=== PATIENT | male | born 1990 | race Caucasian/White ===

== ENCOUNTER 2021-01-02 15:33 | Inpatient (IN) | payer MEDICAID, SELFPAY ==
[2021-01-02 15:35] VITALS: BP 131/82; PULSE 110; RESP 20; TEMP 36.4; O2SAT 97; BMI 24.2
--- NOTE | 2021-01-02 15:58 | CT_ITS ---
STUDY: CTA CHEST REASON FOR EXAM: Male, 30 years old. PT C/O FEVER, SORE THROAT, COUGH X 2 WEEKS ALSO STATES HE WANTS DETOX FROM HEROIN LAST USE 2 DAYS AGO RADIATION DOSAGE (If Supplied By Facility): CTDIvol = ( 5.19 ) mGy, DLP = ( 193.15 ) mGycm TECHNIQUE: The examination was performed with the intravenous administration of IV 100mL Isovue-370. Post-processing of the angiographic images was performed, with multiplanar reformation and 3D reconstruction. Individualized dose optimization techniques were used for this CT. COMPARISON: None. FINDINGS: Normal enhancement of the main pulmonary artery and right and left pulmonary arteries. Normal enhancement of the bilateral peripheral pulmonary arteries. There is no demonstrated pulmonary embolism. Normal thoracic aorta and visualized great vessels. There is no demonstrated aortic dissection. Normal heart and pericardium. Normal mediastinum. There are calcified bilateral hilar lymph nodes. Normal visualized trachea and bronchi. The lungs are well expanded. Normal variant azygous fissure. There are multiple pulmonary nodules throughout multiple pulmonary lobes measuring up to 1.5 x 1.8 cm. Some of the nodules are subpleural/peripheral while others are confined to the pulmonary parenchyma. At least 3 nodules demonstrate central cavitation (image 198 series 2, image 129 series 2). Calcified granuloma left upper lobe. Normal pleura. Normal chest wall structures. Normal osseous structures. Spleen is moderately enlarged. Small hiatal hernia. CT/CTA Chest W/WO Contrast IMPRESSION: 1. No central or segmental pulmonary embolism. 2. Multiple pulmonary nodules some of which demonstrate cavitation. Findings are suspicious for septic emboli based on history. Neoplasm and pulmonary infarction are also the differential diagnosis, albeit less likely. 3. Splenomegaly. Electronically Signed: Nate Knox MD (Brooks) at 17:19 EST , Service support ,
--- NOTE | 2021-01-02 15:58 | EX.ED.DYSGE1 ---
HPI History of Present Illness Chief Complaint: Fever Informant: patient Onset/Context/Timing Onset: Weeks (1-2) Context: Gradual Onset Timing: Continuous Quality: Weakness, burning Location: Generalized Worsened by: Nothing Relieved by: Nothing Narrative Narrative: Patient presents with a fever, sore throat, and weakness that has been getting worse over the past 1 to 2 weeks. Patient states he feels weak all over. Patient also admits to a burning sensation all over. Patient states nothing makes it better and nothing makes it worse. Patient also admits to rhinorrhea and bilateral ear pain. Patient also admits to some pain in his chest and shortness of breath. Patient admits to some nausea and vomiting. Patient also admits to some dysuria. Patient also is requesting detox from heroin. Patient states she uses approximately $40 per day. Patient states his last use was 2 days ago. Patient states he has been using for the past couple months. Patient denies any prior history of detox. PFSH PFS Medical History Hepatitis C IV drug user Polysubstance abuse Testicular cancer Tobacco use Allergy/AdvReac Type Severity Reaction Status Date / Time latex AdvReac Itching Verified 01/02/21 15:38 Family History (Updated 01/02/21 @ 17:[address] Deena Graham MD) Mother Heart disease Father Heart disease Surgical History (Updated 01/02/21 @ 17:[address] Deena Graham MD) History of surgery on arm Hx of unilateral orchiectomy Social History (Updated 01/02/21 @ 17:[address] Deena Graham MD) household members: significant other Smoking Status: Current every day smoker tobacco type: cigarettes Smoking packs per day: 1 Smoking cigarettes per day: 20.0 alcohol intake: current alcohol intake frequency: holidays/special occasions only substance use type: crack/cocaine, heroin, opiates, IV drugs and other details: Currently 1/2 gm daily heroin and fentanyl. ROS ROS ED Constitutional Constitutional ED: Reports fever(s); Denies chills Eyes Eyes: Denies blurry vision or change in vision ENT ENT ED: Reports ear pain, rhinorrhea and sore throat Cardiovascular Cardiovascular: Reports chest pain; Denies palpitations Respiratory/Chest Respiratory/Chest: Reports cough and dyspnea Gastrointestinal Gastrointestinal: Reports nausea and vomiting Genitourinary Genitourinary ED: Reports dysuria; Denies hematuria Musculoskeletal Musculoskeletal: Reports back pain and neck pain Integumentary Denies abscess or rash Neurologic Neurologic: Reports weakness; Denies headache(s) Allergic/Immunologic Allergic/Immunologic ED: Denies mouth swelling or urticaria EXAM Physical Exam Const Vital Signs: 01/02/21 15:35 01/02/21 16:40 01/02/21 16:46 Temperature 97.6 F L 101.2 F H Temperature Source Temporal Oral Pulse Rate 110 H 117 H Respiratory Rate 20 H 18 Respiratory Effort Normal Blood Pressure 131/82 H 124/79 H Blood Pressure Mean 98 94 Pulse Ox 97 100 Oxygen Delivery Method Room Air Room Air Positive well nourished and well developed General Appearance ED: well developed HEENT Reports moist mucous membranes Neck supple and no JVD Resp normal respiratory effort and clear to auscultation bilaterally Cardio regular rhythm and no murmurs Rate: tachycardic GI normal to inspection, nondistended, normoactive bowel sounds and non-tender Palpation: soft Extremity normal to inspection General Extremety ED: Negative for edema or tenderness General Extremity: Negative for edema Neuro oriented x3, CN's II-XII intact bilaterally and no sensory deficits noted Sensorium / Orientation: alert Motor Exam: strength 5/5 throughout Psych mental status grossly normal Skin no rashes or lesions noted MDM MDM MDM Narrative Medical decision making narrative: Patient was given IV fluids. CBC shows a mild anemia with a hemoglobin of 10.5 and hematocrit 29.8. White blood cell count was normal. Platelets were slightly low at 137. Comprehensive metabolic profile showed a sodium of 124, potassium of 3.1, and chloride of 89. Anion gap was normal. The remainder was essentially within normal limits. COVID-19 rapid antigen was obtained and was negative. Rapid strep was positive for group A strep. Patient was given a dose of potassium and a dose of Pen-Vee K. Serum alcohol level was negative. Because of the patient's dyspnea, CTA of the chest was obtained. There is no evidence of pulmonary embolism. There are multiple pulmonary nodules some of which demonstrate cavitation. Findings are suspicious for septic emboli. This was interpreted by the radiologist and reviewed by myself. Because of this, blood cultures were obtained. Patient was started on Zosyn and vancomycin. X-rays of the lumbar spine were obtained. There are 3 views. On my interpretation, there is no acute fracture or spondylolisthesis. Radiologist also interpreted the x-rays and agrees. Case was discussed with the hospitalist. She will admit the patient to her service. Patient and family understood and were agreeable with the plan. All questions were answered. Lab Data Attestation: I reviewed the patient's lab results. Labs: Laboratory Results - last 24 hr 01/02/21 01/02/21 01/02/21 16:10 16:10 16:10 WBC 10.9 RBC 3.67 L Hgb 10.5 L Hct 29.8 L MCV 81.2 MCH 28.6 MCHC 35.2 RDW Std Deviation 39.8 RDW Coeff of [place] 13.3 Plt Count 137 L MPV 10.1 Immature Gran % (Auto) 1.300 H Neut % (Auto) 85.5 H Lymph % (Auto) 7.0 L [place] % (Auto) 5.9 Eos % (Auto) 0.1 Baso % (Auto) 0.2 Absolute Neuts (auto) 9.3 H Absolute Lymphs (auto) 0.76 L Nucleated RBC % 0 Sodium 124 L Potassium 3.1 L Chloride 89 L Carbon Dioxide 24.0 Anion Gap 11 BUN 23 H Creatinine 0.94 Estim Creat Clear Calc 104.64 Est GFR (MDRD) Af Amer 122 Est GFR (MDRD) Non-Af 101 BUN/Creatinine Ratio 24.5 H Glucose 111 H Calcium 7.9 L Magnesium Total Bilirubin 0.90 AST 31 ALT 32 Alkaline Phosphatase 103 Total Protein 6.7 Albumin 2.0 L Globulin 4.7 H Albumin/Globulin Ratio 0.4 L Ethyl Alcohol < 3.0 HIV 1&2 Antibody 01/02/21 01/02/21 16:10 16:10 WBC RBC Hgb Hct MCV MCH MCHC RDW Std Deviation RDW Coeff of [place] Plt Count MPV Immature Gran % (Auto) Neut % (Auto) Lymph % (Auto) [place] % (Auto) Eos % (Auto) Baso % (Auto) Absolute Neuts (auto) Absolute Lymphs (auto) Nucleated RBC % Sodium Potassium Chloride Carbon Dioxide Anion Gap BUN Creatinine Estim Creat Clear Calc Est GFR (MDRD) Af Amer Est GFR (MDRD) Non-Af BUN/Creatinine Ratio Glucose Calcium Magnesium 2.2 Total Bilirubin AST ALT Alkaline Phosphatase Total Protein Albumin Globulin Albumin/Globulin Ratio Ethyl Alcohol HIV 1&2 Antibody Non-Reactive Radiography Diagnostic Testing: Clinical Impression(s) from Imaging Studies Chest CTA 11/23/21 15:58 IMPRESSION: 1. No central or segmental pulmonary embolism. 2. Multiple pulmonary nodules some of which demonstrate cavitation. Findings are suspicious for septic emboli based on history. Neoplasm and pulmonary infarction are also the differential diagnosis, albeit less likely. 3. Splenomegaly. Electronically Signed: Nate Knox MD (Brooks) at 17:19 EST , Service support , Lumbar Spine X-Ray 01/02/21 17:04 IMPRESSION: Normal x-ray examination of the lumbar spine. Electronically Signed: Nate Knox MD (Brooks) at 17:21 EST , Service support , Treatment and Re-Evaluation Vital Sign Attestation:: Vitals reviewed prior to admission. They are stable. Discharge Plan Dx/Rx/DC Orders Clinical Impression: Opiate withdrawal, SIRS (systemic inflammatory response syndrome) Disposition Disposition: Acute Care Hospital [facility] Discharge Date/Time: 01/02/21 18:56
[2021-01-02] MEDS: 0.9% Normal Saline 1,000 ML 1000 ML IV (16:10)
[2021-01-02 16:27] LABS: Absolute Lymphocyte Count 0.76 X10^3/uL (0.83-4.51); Absolute Neutrophil Count 9.3 X10^3/uL (2.0-7.7); Basophil# 0.02 X10^3/uL; Basophil% 0.2 % (0-1); Eosinophil# 0.01 X10^3/uL; Eosinophils% 0.1 % (0-5); Hematocrit 29.8 % (40-54); Hemoglobin 10.5 g/dL (13.0-16.5); Lymphocyte # 0.76 X10^3/ul (0.83-4.51); Mean Corp Hgb Conc 35.2 g/dL (32-36); Mean Corpuscular Hgb 28.6 pg (27.0-32.0); Mean Corpuscular Volume 81.2 fL (80-94); Mean Platelet Vol. 10.1 fl (6.2-12.0); Monocyte# 0.64 X10^3/uL; Monocyte% 5.9 % (0-10); NRBC Flagged by Analyzer 0 % (0-5); Neutrophil # 9.31 X10^3/uL (2.7-7.7); Neutrophil % 85.5 % (47-70); Platelet Count 137 K/mm3 (150-450); RBC Distribution Width CV 13.3 % (11.6-14.6); RBC Distribution Width SD 39.8 fl (35.1-43.9); Red Blood Count 3.67 M/mm3 (4.6-6.2); White Blood Count 10.9 K/mm3 (4.4-11.0)
[2021-01-02 16:46] VITALS: BP 124/79; PULSE 117; RESP 18; TEMP 38.4; O2SAT 100
[2021-01-02 16:48] LABS: ALB/GLOB Ratio 0.4 RATIO (0.9-2.4); AST(SGOT) 31 U/L (15-37); Alanine Aminotransfer ALT/SGPT 32 U/L (16-61); Alkaline Phosphatase 103 U/L (45-117); Anion Gap 11 (5-15); BUN 23 mg/dL (7-18); BUN/Creat Ratio 24.5 RATIO (10-20); Calcium,Total 7.9 mg/dL (8.5-10.1); Chloride 89 mmol/L (98-107); Creatinine, Serum 0.94 mg/dL (0.70-1.30); EST Glomerular Filtration Rate 101 mL/min (>60); Est Glom Filt Rate - Afr Amer 122 mL/min (>60); Estimated Creatinine Clearance 104.64 ml/min; Globulin 4.7 g/dL (2.2-4.2); Glucose 111 mg/dL (74-106); Potassium 3.1 mmol/L (3.5-5.1); Protein, Total 6.7 g/dL (6.4-8.2); Sodium Level 124 mmol/L (136-145)
[2021-01-02 17:00] LABS: Alcohol, Blood (Medical)-Serum < 3.0 mg/dL
--- NOTE | 2021-01-02 17:04 | RAD_ITS ---
STUDY: X-RAY - LUMBAR SPINE REASON FOR EXAM: Male, 30 years old. lower back pain, chest pain, detox from heroin x 2 days TECHNIQUE: 3 view(s) of the lumbar spine were obtained. COMPARISON: None FINDINGS: Normal lumbar lordosis. There is no substantial scoliosis. There is a normal alignment of the vertebrae. Normal vertebral bodies and endplates. Normal disc space heights. There is no demonstrated fracture. Excreted contrast in the urinary tract. RAD/Lumbar Spine 2 or 3 Views IMPRESSION: Normal x-ray examination of the lumbar spine. Electronically Signed: Nate Knox MD (Brooks) at 17:21 EST , Service support ,
[2021-01-02] MEDS: Acetaminophen 500 MG Tablet 1000 MG PO (17:15)
[2021-01-02] MEDS: Penicillin Vk 250 MG Tablet 500 MG PO (17:15)
[2021-01-02] MEDS: Potassium Chloride Oral Tablet 20 MEQ 40 MEQ PO ×2 (17:15→21:06)
--- NOTE | 2021-01-02 17:21 | HP.PCM.HOS_ITS ---
HPI - General General Date of Admission: 01/02/21 Date of Service: 01/02/21 Chief Complaint: Acute Opiate Withdrawal, URI Sxs HPI Narrative The patient is a 30 y/o M w/ PMHx: Polysubstance abuse with IVDA (IV heroin ~ 1/2 gm daily, IV fentanyl ~ 1/2 gm daily, Hepatitis C, Tobacco use who presents to the [facility] ED on 01/02/21 w/ noted acute opiate withdrawal onset starting over the last 36 hours following last dose 48 hours prior with abdominal pain/cramping, generalized body aches and pains, rhinorrhea, piloerection, fatigue, restlessness however he concurrently reports 2-week history of progressively worsening fatigue, malaise, fevers up to 104, chills, headaches, sore throat, nausea, decreased sense of taste and smell as well as cough and shortness of breath. He does report having had Covid in September and is unvaccinated. Patient interested in attaining clean status. Patient's girlfriend is also present in the ED for evaluation for opiate withdrawal. Patient also reports recent mechanical fall while attempting to get something from a shelf, onto his back supposedly onto a sharp object in the lumbar region although he has no bruising. He is rating his back pain 10 out of 10. Work-up in the ED included T101.2, heart rate 117, BP 124/79, respiratory rate 18, 9% on room air, CBC with WC 10.9, hemoglobin 10.5, platelet 137 with left shift and lymphopenia, CMP with sodium 124, potassium 3.1, chloride 89, BUN/creat 23/0.94, CTPA with no evidence of central or segmental pulmonary embolism, multiple pulmonary nodules with some cavitation suspicious for septic emboli, splenomegaly, plain film of the lumbar spine unremarkable. [facility] Medical History Hepatitis C IV drug user Polysubstance abuse Testicular cancer Tobacco use Allergy/AdvReac Type Severity Reaction Status Date / Time latex AdvReac Itching Verified 01/02/21 15:38 Family History (Updated 01/02/21 @ 17:[address] Deena Graham MD) Mother Heart disease Father Heart disease Surgical History (Updated 01/02/21 @ 17:[address] Deena Graham MD) History of surgery on arm Hx of unilateral orchiectomy Social History (Updated 01/02/21 @ 17:[address] Deena Graham MD) household members: significant other Smoking Status: Current every day smoker tobacco type: cigarettes Smoking packs per day: 1 Smoking cigarettes per day: 20.0 alcohol intake: current alcohol intake frequency: holidays/special occasions only substance use type: crack/cocaine, heroin, opiates, IV drugs and other details: Currently 1/2 gm daily heroin and fentanyl. ROS ROS Narrative Admission Review of Systems: CONSTITUTIONAL: No weight loss, + fever, chills, weakness or fatigue. HEENT: + Headache. Eyes: No visual loss, blurred vision, double vision or yellow sclerae. Ears, Nose, Throat: No hearing loss, sneezing. SKIN: No rash or itching, lesions, wounds. CARDIOVASCULAR: No chest pain, chest pressure or chest discomfort, palpitations, edema, orthopnea, syncopal events. RESPIRATORY: + shortness of breath, cough, No marked sputum, wheezing, hemoptysis. GASTROINTESTINAL: + anorexia, nausea, vomiting, diarrhea, No abdominal pain, melena, BRBPR. GENITOURINARY: No dysuria, frequency, urgency or retention. NEUROLOGICAL: + headache, No dizziness, syncope, paralysis, ataxia, numbness or tingling in the extremities, focal weakness, change in bowel or bladder control, seizure. MUSCULOSKELETAL: + muscle, back pain, joint pain or stiffness. HEMATOLOGIC: + anemia, bleeding or bruising. LYMPHATICS: No enlarged nodes. No history of splenectomy. PSYCHIATRIC: No history of depression or anxiety. ENDOCRINOLOGIC: No reports of sweating, cold or heat intolerance. No polyuria or polydipsia. ALLERGIES: No history of asthma, hives, eczema or rhinitis. Vital Signs Vital Signs Vital Signs: 01/02/21 15:35 01/02/21 16:40 01/02/21 16:46 Temperature 97.6 F L 101.2 F H Temperature Source Temporal Oral Pulse Rate 110 H 117 H Respiratory Rate 20 H 18 Respiratory Effort Normal Blood Pressure 131/82 H 124/79 H Blood Pressure Mean 98 94 Pulse Ox 97 100 Oxygen Delivery Method Room Air Room Air Weight Weight: 150 lb Body Mass Index (BMI) 24.2 Physical Exam Narrative Physical Examination: General: Awake, alert, oriented x 3 and cooperative, seated upright in the ED bed, fatigued and ill-appearing, notes ongoing discomfort to the lumbar spine. Skin: Normal color, normal turgor, no icterus, no cyanosis except track kraus, no evidence of any ecchymoses to the lumbar spinal region where he reportedly fell on top of a sharp object. HEENT: AT/NC, EOMI, PERRLA, moderately dry MM, no carotid bruits or JVD noted, posterior OP erythema, no exudate. Lungs: Diminished, greater bases, appropriate effort, no rales, ronchi or wheezing. Heart: Tachycardic with regular rhythm; no gallop, rub audible. Abdomen: Soft, mild generalized discomfort with palpation, ND, distant hyperactive bowel sounds, no obvious HSM however imaging did report splenomegaly. Extremities: No cyanosis, clubbing, or edema. Significant discomfort to palpation of the lumbar spine region, not paraspinous, no step-off. Neurological: Patient awake, alert, oriented as noted, cognitive function intact; pupils equally reactive to light and accommodation, cranial nerves II- XII grossly normal, moving all 4 extremities, no focal deficits, strength difficult to assess given severity of complaints, strength currently appears moderately to severely global decrease secondary to acute presentation. Psychiatric: Affect appears fatigued, ill-appearing, no acute evidence of depressive or anxiety feelings. Results Lab / Micro Data Result Diagrams: 01/02/21 16:10 01/02/21 16:10 Labs: Laboratory Results - last 24 hr 01/02/21 16:10: WBC 10.9, RBC 3.67 L, Hgb 10.5 L, Hct 29.8 L, MCV 81.2, MCH 28.6, MCHC 35.2, RDW Std Deviation 39.8, RDW Coeff of [place] 13.3, Plt Count 137 L, MPV 10.1, Immature Gran % (Auto) 1.300 H, Neut % (Auto) 85.5 H, Lymph % (Auto) 7.0 L, [place] % (Auto) 5.9, Eos % (Auto) 0.1, Baso % (Auto) 0.2, Absolute Neuts (auto) 9.3 H, Absolute Lymphs (auto) 0.76 L, Nucleated RBC % 0 01/02/21 16:10: Sodium 124 L, Potassium 3.1 L, Chloride 89 L, Carbon Dioxide 24.0, Anion Gap 11, BUN 23 H, Creatinine 0.94, Estim Creat Clear Calc 104.64, Est GFR (MDRD) Af Amer 122, Est GFR (MDRD) Non-Af 101, BUN/Creatinine Ratio 24.5 H, Glucose 111 H, Calcium 7.9 L, Total Bilirubin 0.90, AST 31, ALT 32, Alkaline Phosphatase 103, Total Protein 6.7, Albumin 2.0 L, Globulin 4.7 H, Albumin/Globulin Ratio 0.4 L 01/02/21 16:10: Ethyl Alcohol < 3.0 Micro: Microbiology 01/02/21 16:18 Nasal Secretion SARS-CoV-2 Antigen (Rapid) - Final 01/02/21 16:18 Interface Orders Group A Streptococcus Rapid Screen - Final Streptococcus Group A Radiology Impression Chest CTA 01/02/21 15:58 IMPRESSION: 1. No central or segmental pulmonary embolism. 2. Multiple pulmonary nodules some of which demonstrate cavitation. Findings are suspicious for septic emboli based on history. Neoplasm and pulmonary infarction are also the differential diagnosis, albeit less likely. 3. Splenomegaly. Electronically Signed: Nate Knox MD (Brooks) at 17:19 EST , Service support , Assessment & Plan Assessment/Plan (1) SIRS (systemic inflammatory response syndrome): (2) Acute lumbar back pain: QUALIFIERS: Back pain laterality: midline Sciatica presence: unspecified whether sciatica present Qualified Code(s): M54.50 - Low back pain, unspecified (3) Opiate withdrawal: PLAN: The patient is a 30 y/o M w/ PMHx: Polysubstance abuse with IVDA (IV heroin ~ 1/2 gm daily, IV fentanyl ~ 1/2 gm daily, Hepatitis C, Tobacco use who presents to the [facility] ED on 01/02/21 w/ noted acute opiate withdrawal onset starting over the last 36 hours following last dose 48 hours prior with ab dominal pain/cramping, generalized body aches and pains, rhinorrhea, piloerection, fatigue, restlessness however he concurrently reports 2-week history of progressively worsening fatigue, malaise, fevers up to 104, chills, headaches, sore throat, nausea, decreased sense of taste and smell as well as cough and shortness of breath. ome cavitation suspicious for septic emboli, splenomegaly, plain film of the lumbar spine unremarkable #1. Acute Opiate Withdrawal: Will admit to MS telemetry given #2, routine labs including CBC, CMP, urine for drug screen obtained in the ED, will initiate and continue on protocol with tapering course of Subutex, as needed tylenol, ibuprofen, bowel regimen, gabapentin, Bentyl, Vistaril, methocarbamol, clonidine, PRN nightly trazodone for insomnia, IV fluids, IV antiemetics. Once patient clinically improved and completion of taper nearing will plan consultation with case management for transition to next level of rehabilitation care. Complicated by #2 and #3 of note. #2. SIRS secondary to Possible Acute Viral Syndrome, Possible COVID-19 and/or Possible Acute Endocarditis given CTPA findings: Covid rapid negative however given symptoms we will also obtain Covid PCR to be cautious, rapid strep pending, will obtain respiratory viral panel concurrently, will obtain blood culture x2. CTPA with no central or segmental PE, multiple pulmonary nodules some demonstrating cavitation suspicious for septic emboli, splenomegaly. Will maintain on Covid precautions pending PCR, in the interim given concern for possible endocarditis we will maintain on IV Zosyn and vancomycin concurrently given IV drug abuse history, echocardiogram requested, will maintain on t elemetry monitoring, aggressively hydrate however if Covid will de-escalate. #3. Acute intractable lumbar back pain status post reported fall: Plain film with no acute findings, notes fell into a sharp object on the lumbar region but no evidence of any ecchymoses. Will maintain on lidocaine patches, frequent positional changes, Toradol IV x5 doses in addition to ongoing treatments for opiate withdrawal. #4. Polysubstance Abuse, IVDA Hx, History of Hepatitis C, Chronic: Patient currently not candidate for hep C treatment currently as needs to be clean, sober x 6 months, documented attendance NA or AA meetings, counseling and ongoing negative drug screens. Once appropriate GI, ID to initiate. HIV, hepatitis panel to assess for co-infection pending. Encouraged PCP establishment and follow-up. #5. Hypokalemia: Admission K+ 3.1, magnesium level requested, supplementation given, repeat level in AM. #6. Hyponatremia, hypovolemic: Admission sodium 124, appears hypervolemic, will aggressively hydrate and repeat CMP in AM. #7. Tobacco Abuse: Encouraged cessation, inpatient consultation per RT, NR if desired. #8. DVT prophylaxis: SCDs, Lovenox. Charges/Coding Visit Charges Inpatient E&M: 59745 Init Hosp L3
--- NOTE | 2021-01-02 17:27 | ED.RN ---
DR CANALES NOTIFIED OF PT C/O RIGHT RIB PAIN.
[2021-01-02] MEDS: Ketorolac 30 MG/ML Syringe IV (17:39)
[2021-01-02 17:56] VITALS: BP 120/67; PULSE 111; RESP 18; TEMP 37.9; O2SAT 99
[2021-01-02 18:05] LABS: Mucous, Urine 0 SEEN /hpf (<or=2+); Red Blood Cells-Urine 0 SEEN /hpf (0-5); Squamous Epithelial Cells - UA 0 SEEN /hpf (0-5); White Blood Cells 0 SEEN /hpf (0-5)
[2021-01-02 18:07] LABS: Color, Urine Yellow (Yellow); Glucose, Dipstick Normal (Normal); Ketone-Dipstick Negative (Negative); Leukocyte Esterase-Dipstick Negative /ul (Negative); Nitrite-Dipstick Negative (Negative); Occult Blood-Urine 10 /ul (Negative); Protein-Dipstick 15 mg/dl (Negative); Specific Gravity, Urine 1.005 (1.002-1.030); Urine Bilirubin Dipstick Negative (Negative); Urine Clarity Clear (Clear); Urine Urobilinogen Normal (Normal); Urine pH 6.5 (5.0 - 8.0)
[2021-01-02 18:14] LABS: Bacteria RARE /hpf (None Seen)
[2021-01-02 18:25] LABS: Magnesium 2.2 mg/dL (1.6-2.6)
[2021-01-02 18:26] LABS: Barbiturate Urine VISTA NEGATIVE (< 200 ng/mL); Benzodiazepine Urine VISTA NEGATIVE (< 200 ng/mL); Cocaine Urine VISTA NEGATIVE (< 300 ng/mL); Ecstacy Urine VISTA NEGATIVE (< 500 ng/mL); Methadone Urine VISTA NEGATIVE (< 300 ng/mL); PCP Urine VISTA NEGATIVE (< 25 ng/mL); THC Urine VISTA POSITIVE (< 50 ng/mL); Vista UDS pH Range 6
--- NOTE | 2021-01-02 18:55 | PCS.PANDOC ---
PANDEMIC DOCUMENTATION INITIATED: Date: 09/25/2020 Time: 190
[2021-01-02 19:00] VITALS: PULSE 92
--- NOTE | 2021-01-02 19:03 | ECHOD_ITS ---
Reason For Study: Endocarditis Procedure This was a 2D Doppler, Color Flow transthoracic echocardiogram. Exam performed portable in patient room. Left Ventricle Normal LV size. Left ventricular systolic function is normal. The estimated ejection fraction is 60 %. No regional wall motion abnormalities noted. Right Ventricle Normal RV size. Normal systolic function. Atria Normal left atrium. Normal right atrium. Mitral Valve Normal mitral valve. Tricuspid Valve Normal tricuspid valve. Aortic Valve Normal aortic valve. Trisinus/trileaflet aortic valve. Pulmonic Valve Normal pulmonic valve. Great Vessels Normal aortic root. The pulmonary artery is normal size. Normal inferior vena cava. Pericardium/Pleural No pericardial effusion. MMode/2D Measurements & Calculations LVIDd: 4.3 cm IVSd: 0.99 cm LA dimension: 3.2 cm LVIDs: 2.9 cm LVPWd: 0.84 cm FS: 34.1 % LAV(MOD-bp): 47.2 ml LA A4 area: 15.1 cm2 LAV(MOD-bp) Indexed: 27.2 ml/m2 LAV(MOD-sp2): 49.9 ml LAV(MOD-sp4): 36.2 ml Time Measurements MV dec time: 0.22 sec Doppler Measurements & Calculations MV E max brien: 88.9 cm/sec Lat Peak E' Brien: 16.1 cm/sec Med Peak E' Brien: 14.3 cm/sec MV A max brien: 78.9 cm/sec E/E' lat: 5.5 E/E' med: 6.2 MV E/A: 1.1 MV V2 max: 103.0 cm/sec MV P1/2t max brien: 105.9 cm/sec Ao V2 max: 132.9 cm/sec MV max P.2 mmHg MV P1/2t: 53.2 msec Ao max P.1 mmHg MV V2 mean: 68.1 cm/sec MV dec slope: 583.5 cm/sec2 MV mean P.1 mmHg MVA(P1/2t): 4.1 cm2 MV V2 VTI: 17.5 cm LV V1 max: 119.7 cm/sec PA V2 max: 114.6 cm/sec TR max brien: 238.8 cm/sec LV V1 max P.7 mmHg TR max P.8 mmHg ECHO/Echo Complete Interpretation Summary Normal LV size. Left ventricular systolic function is normal. The estimated ejection fraction is 60 %. Structurally normal valves. Ordering Physician: Deena Graham Referring Physician: Brittany PCP Performed By: Wagner Tang RCS
[2021-01-02 19:17] LABS: HIV - WCH Non-Reactive (Nonreactive)
[2021-01-02 19:17] LABS: Amphetamine Urine VISTA POSITIVE (<1000 ng/mL)
[2021-01-02 20:08] VITALS: BP 108/65; PULSE 84; RESP 18; TEMP 36.9; O2SAT 100
[2021-01-02] MEDS: 0.9% Normal Saline 1,000 ML 150 ML IV (20:11)
[2021-01-02 20:49] VITALS: BMI 23.8
[2021-01-02] MEDS: Lidocaine 5% Patch 2 PATCH TOPICAL (21:04)
[2021-01-02] MEDS: Famotidine 20 MG Tablet PO (21:07)
[2021-01-03] VITALS (14 sets, daily range): BP systolic 104–137; BP diastolic 65–80; PULSE 89–124; RESP 16–20; TEMP 36.8–38.8; O2SAT 95–100
[2021-01-03] MEDS: Acetaminophen 325 MG Tablet 650 MG PO ×3 (01:09→21:29)
--- NOTE | 2021-01-03 01:17 | PCM.RX.CS ---
Consult Pharmacy has been consulted to manage selected antiobiotic: Vancomycin Type of Consult: New start Suspected Infection: Endocarditis Labs: Sodium 124 mmol/L (136-145) L 01/02/21 16:10 Potassium 3.1 mmol/L (3.5-5.1) L 01/02/21 16:10 Chloride 89 mmol/L (98-107) L 01/02/21 16:10 Carbon Dioxide 24.0 mmol/L (21.0-32.0) 01/02/21 16:10 Anion Gap 11 (5-15) 01/02/21 16:10 BUN 23 mg/dL (7-18) H 01/02/21 16:10 Creatinine 0.94 mg/dL (0.70-1.30) 01/02/21 16:10 Est GFR (MDRD) Af Amer 122 mL/min (>60) 01/02/21 16:10 Est GFR (MDRD) Non-Af 101 mL/min (>60) 01/02/21 16:10 BUN/Creatinine Ratio 24.5 RATIO (10-20) H 01/02/21 16:10 Glucose 111 mg/dL (74-106) H 01/02/21 16:10 Microbiology: Microbiology 01/02/21 17:55 Mucosa - Nasopharyngeal Respiratory Panel (PCR) - Final 01/02/21 16:18 Nasal Secretion SARS-CoV-2 Antigen (Rapid) - Final 01/02/21 16:18 Interface Orders Group A Streptococcus Rapid Screen - Final Streptococcus Group A Weight used for dosin kg Estimated Creatinine Clearance: 105 Goal Trough: 15-20 mcg/mL Pharmacy Plan for Drug Dosing: Pharmacy Service will continue to monitor and adjust dosing as required. Medications Vancomycin HCl 750 mg/ Sodium (Chloride) 265 mls @ 250 mls/hr IV Q8H AYLA Discontinued Medications Vancomycin HCl 1,750 mg/ (Sodium Chloride) 535 mls @ 250 mls/hr IV X1 ONE Stop: 01/02/21 22:38 Last Admin: 01/03/21 00:26 Dose: Infused Documented by: Follow-Up Labs: Trough Vancomycin Labs to be done on [date and time ordered]: 01/03 @ 8970
[2021-01-03] MEDS: Buprenorphine HCl 2 MG TAB.SUBL SL ×3 (01:50→17:47)
[2021-01-03] MEDS: Ketorolac 30 MG/ML Syringe IV ×2 (01:51→09:04)
[2021-01-03] MEDS: traZODone 100 MG Tablet PO ×2 (02:15→22:49)
[2021-01-03 02:20] LABS: M R Staph aureus DNA By PCR Negative (Negative); Probe Check PASS; Specimen Processing Control PASS
[2021-01-03] MEDS: 0.9% Normal Saline 1,000 ML 150 ML IV (03:30)
[2021-01-03 06:55] LABS: Absolute Lymphocyte Count 0.82 X10^3/uL (0.83-4.51); Basophil# 0.02 X10^3/uL; Basophil% 0.2 % (0-1); Eosinophil# 0.06 X10^3/uL; Eosinophils% 0.7 % (0-5); Hematocrit 27.8 % (40-54); Hemoglobin 9.4 g/dL (13.0-16.5); Lymphocyte # 0.82 X10^3/ul (0.83-4.51); Lymphocyte % 9.3 % (19-41); Mean Corp Hgb Conc 33.8 g/dL (32-36); Mean Corpuscular Hgb 28.4 pg (27.0-32.0); Monocyte# 0.81 X10^3/uL; Monocyte% 9.1 % (0-10); NRBC Flagged by Analyzer 0 % (0-5); Neutrophil # 7.04 X10^3/uL (2.7-7.7); Neutrophil % 79.5 % (47-70); Platelet Count 111 K/mm3 (150-450); RBC Distribution Width CV 13.7 % (11.6-14.6); RBC Distribution Width SD 42.6 fl (35.1-43.9); Red Blood Count 3.31 M/mm3 (4.6-6.2); White Blood Count 8.9 K/mm3 (4.4-11.0)
[2021-01-03 07:31] LABS: ALB/GLOB Ratio 0.4 RATIO (0.9-2.4); AST(SGOT) 33 U/L (15-37); Alanine Aminotransfer ALT/SGPT 26 U/L (16-61); Albumin, Serum 1.5 g/dL (3.2-5.0); Alkaline Phosphatase 88 U/L (45-117); Anion Gap 7 (5-15); BUN 21 mg/dL (7-18); Calcium,Total 7.8 mg/dL (8.5-10.1); Chloride 103 mmol/L (98-107); Creatinine, Serum 0.72 mg/dL (0.70-1.30); EST Glomerular Filtration Rate 136 mL/min (>60); Est Glom Filt Rate - Afr Amer 165 mL/min (>60); Estimated Creatinine Clearance 136.61 ml/min; Globulin 3.8 g/dL (2.2-4.2); Glucose 97 mg/dL (74-106); Potassium 3.8 mmol/L (3.5-5.1); Protein, Total 5.3 g/dL (6.4-8.2); Sodium Level 133 mmol/L (136-145)
[2021-01-03] MEDS: Lidocaine 5% Patch 2 PATCH TOPICAL (09:03)
[2021-01-03] MEDS: Famotidine 20 MG Tablet PO ×2 (09:04→22:49)
[2021-01-03] MEDS: Albuterol 2.5 MG/3 ML VIAL.NEB. INHALATION (10:52)
--- NOTE | 2021-01-03 12:16 | CASEMGMT ---
Insurance review for hospitals In-network with [place] [employer] Insurance if transfer is recommended is as follows: [facility], [facility], [facility], [facility], [facility], [facility] ([facility]), and . Radhames BSN RN CM
--- NOTE | 2021-01-03 12:19 | ADDICTION ---
This bond underwriter met with PT to conduct ASAM, MSE, AUDIT assessments and to plan for d/c. PT A+Ox4 and participated actively. All assessments completed, faxed to [facility] and placed in PT's chart. PT plans to f/u with individual counselor at [facility] for MAT and follow-up counseling services. PT did not indicate a need for transportation post d/c from [facility].
[2021-01-03] MEDS: Gabapentin 300 MG Capsule PO (13:44)
[2021-01-03] MEDS: Dicyclomine 10 MG Capsule 20 MG PO (13:44)
--- NOTE | 2021-01-03 13:53 | PN.HOSP_ITS ---
Subjective Subjective Patient states he continues to have pleuritic pain likely related to his septic pulmonary emboli. He does not want to use any opiates given he is here for opiate withdrawal. He does have a history of IV drug use and injection to bilateral arms. We discussed the fact that he likely has infective endocarditis with the findings on CT scan. Echocardiogram is pending. He is amenable to as needed Toradol. Objective Data Objective Data Vital Signs: Vital Signs Temp Pulse Resp BP Pulse Ox 100.5 F H 116 H 16 125/80 H 100 01/03/21 08:59 01/03/21 10:54 01/03/21 10:54 01/03/21 08:59 01/03/21 08:59 Oxygen Delivery Method Room Air Weight: 68.4 kg Body Mass Index (BMI) 23.8 Intake & Output: Intake and Output for Last 24 Hours 01/01/21 01/02/21 01/03/21 23:59 23:59 23:59 Intake Total 1340 / 1340 3350.0 / 3350.0 Balance 1340 / 1340 3350.0 / 3350.0 Lab / Micro Data Result Diagrams: 01/03/21 06:28 01/03/21 06:28 Labs: Laboratory Results - last 24 hr 01/02/21 16:10: WBC 10.9, RBC 3.67 L, Hgb 10.5 L, Hct 29.8 L, MCV 81.2, MCH 28.6, MCHC 35.2, RDW Std Deviation 39.8, RDW Coeff of [place] 13.3, Plt Count 137 L, MPV 10.1, Immature Gran % (Auto) 1.300 H, Neut % (Auto) 85.5 H, Lymph % (Auto) 7.0 L, [place] % (Auto) 5.9, Eos % (Auto) 0.1, Baso % (Auto) 0.2, Absolute Neuts (auto) 9.3 H, Absolute Lymphs (auto) 0.76 L, Nucleated RBC % 0 01/02/21 16:10: Sodium 124 L, Potassium 3.1 L, Chloride 89 L, Carbon Dioxide 24.0, Anion Gap 11, BUN 23 H, Creatinine 0.94, Estim Creat Clear Calc 104.64, Est GFR (MDRD) Af Amer 122, Est GFR (MDRD) Non-Af 101, BUN/Creatinine Ratio 24.5 H, Glucose 111 H, Calcium 7.9 L, Total Bilirubin 0.90, AST 31, ALT 32, Alkaline Phosphatase 103, Total Protein 6.7, Albumin 2.0 L, Globulin 4.7 H, Albumin/Globulin Ratio 0.4 L 01/02/21 16:10: Ethyl Alcohol < 3.0 01/02/21 16:10: Magnesium 2.2 01/02/21 16:10: HIV 1&2 Antibody Non-Reactive 01/02/21 17:52: Urine Color Yellow, Urine Clarity Clear, Urine pH 6.5, Ur Specific [place] 1.005, Urine Protein 15 H, Urine Glucose (UA) Normal, Urine Ketones Negative, Urine Occult Blood 10 H, Urine Nitrite Negative, Urine Bilirubin Negative, Urine Urobilinogen Normal, Ur Leukocyte Esterase Negative, Urine RBC 0 SEEN, Urine WBC 0 SEEN, Ur Squamous Epith Cells 0 SEEN, Urine Bacteria RARE, Urine Mucus 0 SEEN 01/02/21 17:52: Urine Opiates Screen NEGATIVE, Urine Methadone Screen NEGATIVE, Ur Barbiturates Screen NEGATIVE, Ur Phencyclidine Scrn NEGATIVE, Ur Amphetamines Screen POSITIVE H, U Methamphetamin-MDMA NEGATIVE, U Benzodiazepines Scrn NEGATIVE, Urine Cocaine Screen NEGATIVE, U Cannabinoids Screen POSITIVE H, Ur Drug Screen Comment 01/02/21 17:55: COVID-19 (CHRISTOPHER) Not Detected 01/02/21 22:20: MRSA (PCR) Negative 01/03/21 06:28: WBC 8.9, RBC 3.31 L, Hgb 9.4 L, Hct 27.8 L, MCV 84.0, MCH 28.4, MCHC 33.8, RDW Std Deviation 42.6, RDW Coeff of [place] 13.7, Plt Count 111 L, MPV 10.0, Immature Gran % (Auto) 1.200 H, Neut % (Auto) 79.5 H, Lymph % (Auto) 9.3 L , [place] % (Auto) 9.1, Eos % (Auto) 0.7, Baso % (Auto) 0.2, Absolute Neuts (auto) 7.0, Absolute Lymphs (auto) 0.82 L, Nucleated RBC % 0 01/03/21 06:28: Sodium 133 L, Potassium 3.8, Chloride 103, Carbon Dioxide 23.0, Anion Gap 7, BUN 21 H, Creatinine 0.72, Estim Creat Clear Calc 136.61, Est GFR (MDRD) Af Amer 165, Est GFR (MDRD) Non-Af 136, BUN/Creatinine Ratio 29.0 H, Glucose 97, Calcium 7.8 L, Total Bilirubin 0.80, AST 33, ALT 26, Alkaline Phosphatase 88, Total Protein 5.3 L, Albumin 1.5 L, Globulin 3.8, Albumin/Globulin Ratio 0.4 L Micro: Microbiology 01/02/21 17:45 Blood Culture (Wb) - Right Forearm Bacteria Detection (PCR) - Final Meth. resistant Staph. aureus 01/02/21 17:45 Blood Culture (Wb) - Right Forearm Blood Culture - Preliminary 01/02/21 17:40 Blood Culture (Wb) - Anticubital Left Blood Culture - Preliminary 01/02/21 17:55 Mucosa - Nasopharyngeal Respiratory Panel (PCR) - Final 01/02/21 16:18 Nasal Secretion SARS-CoV-2 Antigen (Rapid) - Final 01/02/21 16:18 Interface Orders Group A Streptococcus Rapid Screen - Final Streptococcus Group A Radiography Diagnostic Testing: Radiology Impression Chest CTA 01/02/21 15:58 IMPRESSION: 1. No central or segmental pulmonary embolism. 2. Multiple pulmonary nodules some of which demonstrate cavitation. Findings are suspicious for septic emboli based on history. Neoplasm and pulmonary infarction are also the differential diagnosis, albeit less likely. 3. Splenomegaly. Electronically Signed: Nate Knox MD (Brooks) at 17:19 EST , Service support , Lumbar Spine X-Ray 01/02/21 17:04 IMPRESSION: Normal x-ray examination of the lumbar spine. Electronically Signed: Nate Knox MD (Brooks) at 17:21 EST , Service support , Echocardiogram 01/02/21 19:03 Interpretation Summary Normal LV size. Left ventricular systolic function is normal. The estimated ejection fraction is 60 %. Structurally normal valves. Ordering Physician: Deena Graham Referring Physician: No PCP Performed By: Wagner Tang RCS Physical Exam Const alert and oriented x3 Constitutional Narrative: Middle-aged white male sitting up in bed eating breakfast and watching television, appears slightly uncomfortable but nontoxic Exam Limitations: no limitations HEENT head/scalp atraumatic, moist oral mucous membranes, oropharynx normal, dentition normal and gingiva normal HEENT Narrative: Mallampati 2, no thrush Head and Scalp: normocephalic Eyes PERRL, EOMs intact bilaterally and conjunctivae normal Eyes Narrative: No scleral icterus Neck no lymphadenopathy, supple and no JVD Neck Narrative: Trachea midline, no thyroid enlargement Resp no retractions, no use of accessory muscles and clear to auscultation bilaterall y Resp Narrative: pain with inspiratory effort Auscultation: Negative for crackles, rales, rhonchi or wheezes Cardio regular rhythm, S1 normal heart sound, S2 normal heart sound, no murmurs, no rub, no gallops, no clicks and no JVD Cardio Narrative: Sinus tachycardia GI normal to inspection, nondistended, normoactive bowel sounds, soft to palpation, non-tender and non-distended Extremity no clubbing, cyanosis or edema Peripheral Pulses: Yes pulses 2+ throughout Skin no rashes or lesions noted, skin turgor normal, no jaundice, no petechiae and no mottling Skin Narrative: Bilateral upper extremities with track kraus-no signs of infection or drainage Neuro oriented x3, CN's II-XII intact bilaterally, moves all extremities and no focal motor deficits Neuro Narrative: Bilateral lower extremity weakness, reflexes 2+ Sensorium / Orientation: awake and alert Speech: speech normal Psych affect normal Assessment & Plan Assessment/Plan (1) MRSA bacteremia: (2) Pulmonary embolism, septic: (3) Opiate withdrawal: (4) Acute lumbar back pain: QUALIFIERS: Back pain laterality: midline Sciatica presence: unspecified whether sciatica present Qualified Code(s): M54.50 - Low back pain, unspecified (5) Sepsis: (6) Normocytic anemia: (7) Thrombocytopenia: (8) Hyponatremia: (9) Hypokalemia: (10) Strep throat: PLAN: Sepsis secondary to MRSA bacteremia -Patient with borderline blood pressures, tachycardia, tachypnea, and fever with a source of infection -Suspect infective endocarditis given CT with septic pulmonary emboli -Surface echo negative for any valvular vegetations and EF is normal at 65% -We will check MARY CARMEN -Check MRI of the lumbar spine given low back pain and weakness as there is concern for discitis versus epidural abscess -Continue antibiotics as ordered -Repeat blood cultures -Consult infectious disease Septic pulmonary emboli -See above -Toradol for pain management as patient does not want to use opiates given his history of addiction Acute lumbar pain -Check MRI spine with and without contrast to rule out epidural abscess/discitis with MRSA bacteremia and history of IV drug use -Pain management as above Hyponatremia -Suspect hypovolemic hyponatremia as sodiums are improving -Repeat in a.m. Hypokalemia -Resolved Strep pharyngitis -Antibiotics as above Normocytic anemia -Unclear if this is acute or chronic as we have no baseline laboratory data -Suspect decreased some given acute infection -No signs of acute bleeding -Continue to monitor Thrombocytopenia -Slight trend down but remain greater than 100,000 -Continue DVT prophylaxis -Likely related to sepsis/antibiotics -Continue to monitor Acute opiate withdrawal -Buprenorphine taper -Supportive medications -180 consultation History of IVDU -See above History of hepatitis C -Would recommend treatment with GI once patient demonstrate sobriety DVT prophylaxis -We will start enoxaparin given limited mobility with pain --SCDs CODE STATUS -Full code Charges/Coding Visit Charges Inpatient E&M: 64364 [facility] Hosp L3
--- NOTE | 2021-01-03 14:14 | MRI_ITS ---
HISTORY: Bilateral lower extremity weakness, back pain, fever, history of infective endocarditis and multi-substance abuse. EXAMINATION: MR Spine Lumbar WO/W Contrast TECHNIQUE: Multiplanar and multisequence MR images of the lumbar spine. IV Contrast dosage and agent: IV dotarem 14ml COMPARISON: None FINDINGS: VERTEBRAE: Vertebral body heights are preserved. Normal vertebral bodies and posterior elements. VERTEBRAL ALIGNMENT: No spondylolisthesis. There is preservation of the normal lumbar lordosis. CORD: Normal position. Central syrinx seen in the distal cord at the level of T11 and T12, no associated postcontrast enhancement.. L1/L2: Normal disc height and morphology. Normal spinal canal, lateral recesses and neuroforamina. L2/L3: Normal disc height and morphology. Normal spinal canal, lateral recesses and neuroforamina. L3/L4: Normal disc height and morphology. Normal spinal canal, lateral recesses and neuroforamina. L4/L5: Normal disc height and morphology. Normal spinal canal, lateral recesses and neuroforamina. L5/S1: Normal disc height and morphology. Normal spinal canal, lateral recesses and neuroforamina. SOFT TISSUES: No fluid collections or abnormal focal enhancement. MRI/Spine Lumbar W/WO Contrast IMPRESSION: Syrinx of the distal thoracic cord without abnormal enhancement. No evidence of paraspinal abscess or significant degenerative disc disease. at 0049 Reported and signed by: Baldomero Park MD Electronically Signed: Baldomero Park MD at 0:48 EST Tel , Service support ,
--- NOTE | 2021-01-03 15:49 | CON.PCM.ID_ITS ---
Assessment & Plan Assessment/Plan (1) Pulmonary embolism, septic: (2) MRSA bacteremia: PLAN: MRSA bacteremia per PCR with suspected endocarditis, due to IVDU. Repeat bcx today and tomorrow. TTE showed no veg; likely will need MARY CARMEN. Splinter hemorrhage seen on L thumb. Cont vanc/zosyn. lumbar pain and BLE weakness - concern for osteo/discitis/epidural abscess, recommend MRI L spine with iv contrast. suspected covid - sx for past week, unvaccinated. Cont isolation. PCR and Ag neg, will check Abs. IVDU/hep C - no prior treatment for hep C. HIV neg here. Will follow, thank you (3) Acute lumbar back pain: QUALIFIERS: Back pain laterality: midline Sciatica presence: unspecified whether sciatica present Qualified Code(s): M54.50 - Low back pain, unspecified (4) IV drug user: (5) Hepatitis C: (6) Suspected COVID-19 virus infection: HPI Consult Data Date of Consult: 01/03/21 HPI Narrative HPI Narrative: LUCÍA CASSIDY, is a 30 M with IVDU with opiates and meth, h/o hep C untreated. Shares needles with [employer], does not lick needles. Injects into arms. Last episode was 3 days ago. Presented to ED yesterday with a month of not feeling well, fever, fatigue, progressive R sided chest/rib pain. Reports about 10 days of dysuria, difficulty urinating. Has 1 week of loss of taste and smell, headache, nausea. Unvaccinated for covid. Had a fall and hit his back; now with 1-2 days of progressive lower back pain and BLE weakness. Came to ED, started vanc/zosyn, placed in covid isolation. Full ROS performed and neg except as noted above PFSH Medical History Hepatitis C IV drug user Polysubstance abuse Testicular cancer Tobacco use Allergy/AdvReac Type Severity Reaction Status Date / Time latex AdvReac Itching Verified 01/02/21 15:38 Family History (Updated 01/02/21 @ 17:[address] Deena Graham MD) Mother Heart disease Father Heart disease Surgical History (Updated 01/02/21 @ 17:[address] Deena Graham MD) History of surgery on arm Hx of unilateral orchiectomy Social History (Updated 01/02/21 @ 17:[address] Deena Graham MD) household members: significant other Smoking Status: Current every day smoker tobacco type: cigarettes Smoking packs per day: 1 Smoking cigarettes per day: 20.0 alcohol intake: current alcohol intake frequency: holidays/special occasions only substance use type: crack/cocaine, heroin, opiates, IV drugs and other details: Currently 1/2 gm daily heroin and fentanyl. Physical Exam Const alert, oriented x3 and no apparent distress General Appearance: cooperative Exam Limitations: no limitations HEENT normocephalic and head/scalp atraumatic Eyes PERRL and EOMs intact bilaterally Neck supple and No nodes Resp clear to auscultation bilaterally Resp Narrative: decreased in bases Auscultation: diminished lung sounds Cardio regular rate and regular rhythm Heart Sounds: murmur GI normal to inspection, nondistended, normoactive bowel sounds Extremity no clubbing, cyanosis or edema Skin no rashes or lesions noted Skin Narrative: L thumb with splinter hemorrhage Neuro CN's II-XII intact bilaterally Neuro Narrative: BLE weakness, L worse than R Lab / Micro Data Result Diagrams: 01/03/21 06:28 01/03/21 06:28 Labs: Laboratory Results - last 24 hr 01/02/21 16:10: WBC 10.9, RBC 3.67 L, Hgb 10.5 L, Hct 29.8 L, MCV 81.2, MCH 28.6, MCHC 35.2, RDW Std Deviation 39.8, RDW Coeff of [place] 13.3, Plt Count 137 L, MPV 10.1, Immature Gran % (Auto) 1.300 H, Neut % (Auto) 85.5 H, Lymph % (Auto) 7.0 L, [place] % (Auto) 5.9, Eos % (Auto) 0.1, Baso % (Auto) 0.2, Absolute Neuts (auto) 9.3 H, Absolute Lymphs (auto) 0.76 L, Nucleated RBC % 0 01/02/21 16:10: Sodium 124 L, Potassium 3.1 L, Chloride 89 L, Carbon Dioxide 24.0, Anion Gap 11, BUN 23 H, Creatinine 0.94, Estim Creat Clear Calc 104.64, Est GFR (MDRD) Af Amer 122, Est GFR (MDRD) Non-Af 101, BUN/Creatinine Ratio 24.5 H, Glucose 111 H, Calcium 7.9 L, Total Bilirubin 0.90, AST 31, ALT 32, Alkaline Phosphatase 103, Total Protein 6.7, Albumin 2.0 L, Globulin 4.7 H, Albumin/Globulin Ratio 0.4 L 01/02/21 16:10: Ethyl Alcohol < 3.0 01/02/21 16:10: Magnesium 2.2 01/02/21 16:10: HIV 1&2 Antibody Non-Reactive 01/02/21 17:52: Urine Color Yellow, Urine Clarity Clear, Urine pH 6.5, Ur Specific [place] 1.005, Urine Protein 15 H, Urine Glucose (UA) Normal, Urine Ketones Negative, Urine Occult Blood 10 H, Urine Nitrite Negative, Urine Bilirubin Negative, Urine Urobilinogen Normal, Ur Leukocyte Esterase Negative, Urine RBC 0 SEEN, Urine WBC 0 SEEN, Ur Squamous Epith Cells 0 SEEN, Urine Bacteria RARE, Urine Mucus 0 SEEN 01/02/21 17:52: Urine Opiates Screen NEGATIVE, Urine Methadone Screen NEGATIVE, Ur Barbiturates Screen NEGATIVE, Ur Phencyclidine Scrn NEGATIVE, Ur Amphetamines Screen POSITIVE H, U Methamphetamin-MDMA NEGATIVE, U Benzodiazepines Scrn NEGATIVE, Urine Cocaine Screen NEGATIVE, U Cannabinoids Screen POSITIVE H, Ur Drug Screen Comment 01/02/21 17:55: COVID-19 (CHRISTOPHER) Not Detected 01/02/21 22:20: MRSA (PCR) Negative 01/03/21 06:28: WBC 8.9, RBC 3.31 L, Hgb 9.4 L, Hct 27.8 L, MCV 84.0, MCH 28.4, MCHC 33.8, RDW Std Deviation 42.6, RDW Coeff of [place] 13.7, Plt Count 111 L, MPV 10.0, Immature Gran % (Auto) 1.200 H, Neut % (Auto) 79.5 H, Lymph % (Auto) 9.3 L , [place] % (Auto) 9.1, Eos % (Auto) 0.7, Baso % (Auto) 0.2, Absolute Neuts (auto) 7.0, Absolute Lymphs (auto) 0.82 L, Nucleated RBC % 0 01/03/21 06:28: Sodium 133 L, Potassium 3.8, Chloride 103, Carbon Dioxide 23.0, Anion Gap 7, BUN 21 H, Creatinine 0.72, Estim Creat Clear Calc 136.61, Est GFR (MDRD) Af Amer 165, Est GFR (MDRD) Non-Af 136, BUN/Creatinine Ratio 29.0 H, Glucose 97, Calcium 7.8 L, Total Bilirubin 0.80, AST 33, ALT 26, Alkaline Phosphatase 88, Total Protein 5.3 L, Albumin 1.5 L, Globulin 3.8, Albumin/Globulin Ratio 0.4 L Micro: Microbiology 01/02/21 17:45 Blood Culture (Wb) - Right Forearm Bacteria Detection (PCR) - Final Meth. resistant Staph. aureus 01/02/21 17:45 Blood Culture (Wb) - Right Forearm Blood Culture - Preliminary 01/02/21 17:40 Blood Culture (Wb) - Anticubital Left Blood Culture - Preliminary 01/02/21 17:55 Mucosa - Nasopharyngeal Respiratory Panel (PCR) - Final 01/02/21 16:18 Nasal Secretion SARS-CoV-2 Antigen (Rapid) - Final 01/02/21 16:18 Interface Orders Group A Streptococcus Rapid Screen - Final Streptococcus Group A Radiology Impression Chest CTA 01/02/21 15:58 IMPRESSION: 1. No central or segmental pulmonary embolism. 2. Multiple pulmonary nodules some of which demonstrate cavitation. Findings are suspicious for septic emboli based on history. Neoplasm and pulmonary infarction are also the differential diagnosis, albeit less likely. 3. Splenomegaly. Electronically Signed: Nate Knox MD (Brooks) at 17:19 EST , Service support , Lumbar Spine X-Ray 01/02/21 17:04 IMPRESSION: Normal x-ray examination of the lumbar spine. Electronically Signed: Nate Knox MD (Brooks) at 17:21 EST , Service support , Echocardiogram 01/02/21 19:03 Interpretation Summary Normal LV size. Left ventricular systolic function is normal. The estimated ejection fraction is 60 %. Structurally normal valves. Ordering Physician: Deena Graham Referring Physician: Brittany PCP Performed By: Wagner Tang RCS
[2021-01-03 22:26] LABS: Vancomycin, Trough Level 8.3 ug/mL (5.0-15.0)
[2021-01-03] MEDS: Ketorolac 30 MG/ML Syringe 15 MG IV (22:49)
--- NOTE | 2021-01-03 23:46 | PCM.RX.CS ---
Consult Pharmacy has been consulted to manage selected antiobiotic: Vancomycin Type of Consult: Follow-up Suspected Infection: Endocarditis Prior Doses of Antibiotics Received/Current Regimen: Medications Vancomycin HCl 1,250 mg/ (Sodium Chloride) 275 mls @ 167 mls/hr IV Q8H [facility] Last Admin: 01/03/21 23:10 Dose: 167 mls/hr Discontinued Medications Vancomycin HCl 750 mg/ Sodium (Chloride) 265 mls @ 250 mls/hr IV Q8H [facility] Last Admin: 01/03/21 14:47 Dose: Infused Labs: Sodium 133 mmol/L (136-145) L 01/03/21 06:28 Potassium 3.8 mmol/L (3.5-5.1) 01/03/21 06:28 Chloride 103 mmol/L (98-107) 01/03/21 06:28 Carbon Dioxide 23.0 mmol/L (21.0-32.0) 01/03/21 06:28 Anion Gap 7 (5-15) 01/03/21 06:28 BUN 21 mg/dL (7-18) H 01/03/21 06:28 Creatinine 0.72 mg/dL (0.70-1.30) 01/03/21 06:28 Est GFR (MDRD) Af Amer 165 mL/min (>60) 01/03/21 06:28 Est GFR (MDRD) Non-Af 136 mL/min (>60) 01/03/21 06:28 BUN/Creatinine Ratio 29.0 RATIO (10-20) H 01/03/21 06:28 Glucose 97 mg/dL (74-106) 01/03/21 06:28 Vancomycin Trough 8.3 ug/mL (5.0-15.0) 01/03/21 21:22 Microbiology: Microbiology 01/02/21 17:45 Blood Culture (Wb) - Right Forearm Bacteria Detection (PCR) - Final Meth. resistant Staph. aureus 01/02/21 17:45 Blood Culture (Wb) - Right Forearm Blood Culture - Preliminary 01/02/21 17:40 Blood Culture (Wb) - Anticubital Left Blood Culture - Preliminary 01/02/21 17:55 Mucosa - Nasopharyngeal Respiratory Panel (PCR) - Final 01/02/21 16:18 Nasal Secretion SARS-CoV-2 Antigen (Rapid) - Final 01/02/21 16:18 Interface Orders Group A Streptococcus Rapid Screen - Final Streptococcus Group A Weight used for dosin kg Estimated Creatinine Clearance: 136 Goal Trough: 15-20 mcg/mL Pharmacy Plan for Drug Dosing: Vancomycin trough of 8.3 was below target range of 15-20. Will increase dose to 1250mg q8h and re-draw a trough prior to 4th dose of new regimen. Pharmacy Service will continue to monitor and adjust dosing as required. Follow-Up Labs: Trough Vancomycin Labs to be done on [date and time ordered]: 01/04/21 @[id number]
[2021-01-04] VITALS (10 sets, daily range): BP systolic 112–140; BP diastolic 64–90; PULSE 85–118; RESP 16–18; TEMP 36.7–37.9; O2SAT 96–99
[2021-01-04] MEDS: Buprenorphine HCl 2 MG TAB.SUBL SL ×3 (00:41→18:25)
[2021-01-04 06:28] LABS: Absolute Neutrophil Count 6.8 X10^3/uL (2.0-7.7); Basophil# 0.03 X10^3/uL; Basophil% 0.3 % (0-1); Eosinophil# 0.14 X10^3/uL; Eosinophils% 1.5 % (0-5); Hematocrit 29.3 % (40-54); Hemoglobin 9.9 g/dL (13.0-16.5); Lymphocyte % 14.4 % (19-41); Mean Corp Hgb Conc 33.8 g/dL (32-36); Mean Corpuscular Hgb 28.6 pg (27.0-32.0); Mean Corpuscular Volume 84.7 fL (80-94); Mean Platelet Vol. 9.9 fl (6.2-12.0); Monocyte# 0.69 X10^3/uL; Monocyte% 7.6 % (0-10); NRBC Flagged by Analyzer 0 % (0-5); Neutrophil # 6.82 X10^3/uL (2.7-7.7); Neutrophil % 75.4 % (47-70); Platelet Count 145 K/mm3 (150-450); RBC Distribution Width CV 14.3 % (11.6-14.6); RBC Distribution Width SD 44.2 fl (35.1-43.9); Red Blood Count 3.46 M/mm3 (4.6-6.2); White Blood Count 9.1 K/mm3 (4.4-11.0)
[2021-01-04] MEDS: Acetaminophen 325 MG Tablet 650 MG PO (06:44)
[2021-01-04 07:24] LABS: Anion Gap 8 (5-15); BUN 18 mg/dL (7-18); BUN/Creat Ratio 26.5 RATIO (10-20); Calcium,Total 7.8 mg/dL (8.5-10.1); Chloride 103 mmol/L (98-107); Creatinine, Serum 0.68 mg/dL (0.70-1.30); EST Glomerular Filtration Rate 147 mL/min (>60); Est Glom Filt Rate - Afr Amer 177 mL/min (>60); Estimated Creatinine Clearance 144.64 ml/min; Glucose 92 mg/dL (74-106); Potassium 3.9 mmol/L (3.5-5.1); Sodium Level 134 mmol/L (136-145)
[2021-01-04] MEDS: Lidocaine 5% Patch 2 PATCH TOPICAL (09:12)
[2021-01-04] MEDS: hydrOXYzine PAM 25 MG Capsule 50 MG PO ×2 (09:13→18:25)
[2021-01-04] MEDS: Famotidine 20 MG Tablet PO ×2 (09:13→21:23)
[2021-01-04] MEDS: cloNIDine HCl 0.1 MG Tablet PO (09:13)
--- NOTE | 2021-01-04 11:40 | PN.HOSP_ITS ---
Subjective Subjective Patient states his pain is much improved today. Reports he was able to get up and ambulate independently without any significant pain. He is feeling overall better. His last fever was last evening at approximately 930 with a T-max of 101.8. His vital signs otherwise remained stable. Objective Data Objective Data Vital Signs: Vital Signs Temp Pulse Resp BP Pulse Ox 98.4 F 108 H 18 120/66 106 01/04/21 09:00 01/04/21 09:00 01/04/21 09:00 01/04/21 09:00 01/04/21 09:00 Oxygen Delivery Method Room Air Weight: 68.7 kg Body Mass Index (BMI) 23.8 Intake & Output: Intake and Output for Last 24 Hours 01/02/21 01/03/21 01/04/21 23:59 23:59 23:59 Intake Total 1340 / 1340 3905.0 / 3905.0 890 / 890 Balance 1340 / 1340 3905.0 / 3905.0 890 / 890 Lab / Micro Data Result Diagrams: 01/04/21 05:44 01/04/21 05:44 Labs: Laboratory Results - last 24 hr 01/03/21 21:22: Vancomycin Trough 8.3 01/04/21 05:44: WBC 9.1, RBC 3.46 L, Hgb 9.9 L, Hct 29.3 L, MCV 84.7, MCH 28.6, MCHC 33.8, RDW Std Deviation 44.2 H, RDW Coeff of Jefferson 14.3, Plt Count 145 L, MPV 9.9, Immature Gran % (Auto) 0.800, Neut % (Auto) 75.4 H, Lymph % (Auto) 14.4 L, [place] % (Auto) 7.6, Eos % (Auto) 1.5, Baso % (Auto) 0.3, Absolute Neuts (auto) 6.8, Absolute Lymphs (auto) 1.30, Nucleated RBC % 0 01/04/21 05:44: Sodium 134 L, Potassium 3.9, Chloride 103, Carbon Dioxide 23.0, Anion Gap 8, BUN 18, Creatinine 0.68 L, Estim Creat Clear Calc 144.64, Est GFR (MDRD) Af Amer 177, Est GFR (MDRD) Non-Af 147, BUN/Creatinine Ratio 26.5 H, Glucose 92, Calcium 7.8 L Micro: Microbiology 01/02/21 17:45 Blood Culture (Wb) - Right Forearm Bacteria Detection (PCR) - Final Meth. resistant Staph. aureus 01/02/21 17:45 Blood Culture (Wb) - Right Forearm Blood Culture - Preli minary Staphylococcus aureus 01/02/21 17:40 Blood Culture (Wb) - Anticubital Left Blood Culture - Preliminary Staphylococcus aureus 01/03/21 13:26 Blood Culture (Wb) - Anticubital Right Blood Culture - Preliminary 01/02/21 17:55 Mucosa - Nasopharyngeal Respiratory Panel (PCR) - Final 01/02/21 16:18 Nasal Secretion SARS-CoV-2 Antigen (Rapid) - Final 01/02/21 16:18 Interface Orders Group A Streptococcus Rapid Screen - Final Streptococcus Group A Radiography Diagnostic Testing: Radiology Impression Echocardiogram 01/02/21 19:03 Interpretation Summary Normal LV size. Left ventricular systolic function is normal. The estimated ejection fraction is 60 %. Structurally normal valves. 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 No evidence of paraspinal abscess or significant degenerative disc disease. at 0049 Reported and signed by: Baldomero Park MD Electronically Signed: Baldomero Park MD at 0:48 EST Tel , Service support , Physical Exam Const alert, oriented x3, no apparent distress and average body habitus Constitutional Narrative: Middle-aged white male sitting up in bed eating breakfast and watching television, appears much more comfortable and nontoxic today Exam Limitations: no limitations HEENT head/scalp atraumatic and moist oral mucous membranes Head and Scalp: normocephalic Resp normal respiratory effort, no retractions, no use of accessory muscles and clear to auscultation bilaterally Auscultation: Negative for crackles, rales, rhonchi or wheezes Cardio regular rhythm, S1 normal heart sound, S2 normal heart sound, no murmurs, no rub, no gallops, no clicks and no JVD Cardio Narrative: Mild tachycardia GI normal to inspection, nondistended, normoactive bowel sounds, soft to palpation, non-tender and non-distended Extremity no clubbing, cyanosis or edema Peripheral Pulses: Yes pulses 2+ throughout Neuro oriented x3, CN's II-XII intact bilaterally, moves all extremities and no focal motor deficits Neuro Narrative: Bilateral lower extremity weakness, reflexes 2+ Sensorium / Orientation: awake and alert Speech: speech normal Assessment & Plan Assessment/Plan (1) MRSA bacteremia: (2) Pulmonary embolism, septic: (3) Opiate withdrawal: (4) Acute lumbar back pain: QUALIFIERS: Back pain laterality: midline Sciatica presence: unspecified whether sciatica present Qualified Code(s): M54.50 - Low back pain, unspecified (5) Sepsis: (6) Normocytic anemia: (7) Thrombocytopenia: (8) Hyponatremia: (9) Hypokalemia: (10) Strep throat: PLAN: Sepsis secondary to MRSA bacteremia -Patient with borderline blood pressures, tachycardia, tachypnea, and fever with a source of infection -Suspect infective endocarditis given CT with septic pulmonary emboli -Surface echo negative for any valvular vegetations and EF is normal at 65% -MARY CARMEN ordered and will likely be done tomorrow -MRI is negative for any signs of infection -Continue antibiotics as ordered -Repeat blood culture from 01/03/2021 remains positive with gram-positive cocci in clusters -Patient will have cultures today and tomorrow for follow-up -Infectious diseases following Septic pulmonary emboli -See above -Toradol for pain management as patient does not want to use opiates given his history of addiction Acute lumbar pain -MRI is negative for any signs of acute infection -Continue pain management as noted -Overall pain and weakness in his lower extremities are much improved per discussion with patient today. Hyponatremia -Suspect hypovolemic hyponatremia as sodiums are improving -Almost normalized at this -Repeat in a.m. Strep pharyngitis -Antibiotics as above Normocytic anemia -Unclear if this is acute or chronic as we have no baseline laboratory data -Hemoglobin is stable -Suspect decreased some given acute infection -No signs of acute bleeding -Continue to monitor Thrombocytopenia -Improving and up from 111,000 245,000 today -Continue DVT prophylaxis -Likely related to sepsis/antibiotics -Continue to monitor Acute opiate withdrawal -Buprenorphine taper -Supportive medications -180 consultation History of IVDU -See above History of hepatitis C -Would recommend treatment with GI once patient demonstrate sobriety DVT prophylaxis -Continue enoxaparin -SCDs CODE STATUS -Full code Charges/Coding Visit Charges Inpatient E&M: 84388 Subs Hosp L2
--- NOTE | 2021-01-04 13:25 | EKG12_ITS ---
Test Reason : ABDOMINAL PAIN Blood Pressure : / mmHG Vent. Rate : 131 BPM Atrial Rate : 131 BPM P-R Int : 128 ms QRS Dur : 088 ms QT Int : 300 ms P-R-T Axes : 045 055 058 degrees QTc Int : 443 ms Sinus tachycardia Otherwise normal ECG No previous ECGs available Confirmed by MARILEE LIN, WAGNER ([id number]), film editor STACI ROUSE ([id number]) on 01/05/2021 11:51:53 AM Referred By: EATSON Confirmed By:WAGNER HUNT MD
[2021-01-04] MEDS: Ketorolac 30 MG/ML Syringe 15 MG IV ×2 (13:38→21:18)
[2021-01-04] MEDS: Enoxaparin 40 MG/0.4 ML Syringe SC (13:43)
[2021-01-04] MEDS: Methocarbamol 750 MG Tablet 1500 MG PO (13:45)
[2021-01-04] MEDS: 0.9% Saline Lock 10 ML Syringe IV (21:19)
[2021-01-04] MEDS: Gabapentin 300 MG Capsule PO (21:23)
[2021-01-04] MEDS: traZODone 100 MG Tablet PO (23:16)
[2021-01-04 23:45] LABS: Vancomycin, Trough Level 10.8 ug/mL (5.0-15.0)
[2021-01-05] VITALS (13 sets, daily range): BP systolic 119–149; BP diastolic 76–83; PULSE 95–120; RESP 17–18; TEMP 36.6–37.9; O2SAT 95–99
[2021-01-05] MEDS: Buprenorphine HCl 2 MG TAB.SUBL SL ×2 (00:51→13:31)
[2021-01-05] MEDS: Ketorolac 30 MG/ML Syringe 15 MG IV ×3 (05:56→19:57)
[2021-01-05] MEDS: 0.9% Saline Lock 10 ML Syringe IV ×2 (05:59→20:07)
[2021-01-05 06:55] LABS: Absolute Lymphocyte Count 1.68 X10^3/uL (0.83-4.51); Absolute Neutrophil Count 6.6 X10^3/uL (2.0-7.7); Basophil# 0.04 X10^3/uL; Basophil% 0.4 % (0-1); Eosinophil# 0.16 X10^3/uL; Eosinophils% 1.7 % (0-5); Hematocrit 28.5 % (40-54); Hemoglobin 9.6 g/dL (13.0-16.5); Lymphocyte # 1.68 X10^3/ul (0.83-4.51); Lymphocyte % 18.2 % (19-41); Mean Corp Hgb Conc 33.7 g/dL (32-36); Mean Corpuscular Hgb 28.7 pg (27.0-32.0); Mean Corpuscular Volume 85.1 fL (80-94); Mean Platelet Vol. 9.2 fl (6.2-12.0); Monocyte% 7.6 % (0-10); NRBC Flagged by Analyzer 0 % (0-5); Neutrophil # 6.56 X10^3/uL (2.7-7.7); Platelet Count 172 K/mm3 (150-450); RBC Distribution Width CV 14.4 % (11.6-14.6); RBC Distribution Width SD 44.9 fl (35.1-43.9); Red Blood Count 3.35 M/mm3 (4.6-6.2); White Blood Count 9.2 K/mm3 (4.4-11.0)
[2021-01-05 07:18] LABS: Anion Gap 8 (5-15); BUN 12 mg/dL (7-18); BUN/Creat Ratio 17.4 RATIO (10-20); Calcium,Total 7.7 mg/dL (8.5-10.1); Chloride 101 mmol/L (98-107); Creatinine, Serum 0.69 mg/dL (0.70-1.30); EST Glomerular Filtration Rate 145 mL/min (>60); Est Glom Filt Rate - Afr Amer 175 mL/min (>60); Estimated Creatinine Clearance 142.55 ml/min; Glucose 101 mg/dL (74-106); Potassium 3.7 mmol/L (3.5-5.1); Sodium Level 133 mmol/L (136-145)
[2021-01-05] MEDS: Enoxaparin 40 MG/0.4 ML Syringe SC (08:59)
[2021-01-05] MEDS: Famotidine 20 MG Tablet PO ×2 (08:59→22:35)
[2021-01-05] MEDS: Lidocaine 5% Patch 2 PATCH TOPICAL (09:00)
--- NOTE | 2021-01-05 10:57 | PCM.PN.ID ---
Physical Exam Narrative Feeling better, no n/v/d, back pain and weakness much improved Const alert and no apparent distress General Appearance: cooperative Resp clear to auscultation bilaterally Cardio regular rate and regular rhythm GI normal to inspection, nondistended, normoactive bowel sounds Extremity no clubbing, cyanosis or edema Skin no rashes or lesions noted ID ID: Route of nutrition/ use of supplements: [] Nutritional Intake: [] IV Site: [] Garnica Catheter: [] Assessment & Plan Assessment/Plan (1) Pulmonary embolism, septic: (2) MRSA bacteremia: PLAN: MRSA bacteremia per PCR with suspected endocarditis, due to IVDU. Repeat bcx today and tomorrow. TTE showed no veg; will need MARY CARMEN. Splinter hemorrhage seen on L thumb. Cont vanc, will stop zosyn lumbar pain and BLE weakness - MRI neg for osteo/discitis/epidural abscess. Sx improved. suspected covid - sx for past week, unvaccinated. Cont isolation. PCR and Ag neg, pending Abs. Plan on stopping iso 01/08/21. IVDU/hep C - no prior treatment for hep C. HIV neg here. Will follow (3) Acute lumbar back pain: QUALIFIERS: Back pain laterality: midline Sciatica presence: unspecified whether sciatica present Qualified Code(s): M54.50 - Low back pain, unspecified (4) IV drug user: (5) Hepatitis C: (6) Suspected COVID-19 virus infection:
--- NOTE | 2021-01-05 11:00 | ECHOTEE_ITS ---
Reason For Study: suspected endocarditis Medication MARY CARMEN probe 6VT-D (SN [id number]) passed with minimal difficulty. No complications were noted. Cetacaine Topical [place] given X2 orally. Versed 2 mg given slow IVP. Performed a rapid injection of agitated mix of 9 cc saline and 1cc air to assess for atrial septal defect. Patient in COVID 19- Precautions. Left Ventricle Normal left ventricle. The estimated ejection fraction is 55-60 %. Right Ventricle Normal right ventricle. Normal systolic function. Atria Normal atrial septum. Intact atrial septum. Negative Buble study. Normal left atrium. Normal right atrium. Mitral Valve The mitral valve is structurally normal. No prolapse or stenosis seen. No mitral valve insufficiency. Tricuspid Valve Mild focal thickening of the tricuspid valve. The tricuspid valve leaflets appear thickened, hooded, and/or redundant, consistent with myxomatous degeneration. Mild tricuspid valve insufficiency. Aortic Valve Normal aortic valve. No aortic valve insufficiency. Pulmonic Valve The pulmonic valve is not well visualized. ECHO/Echo Transesophageal (MARY CARMEN) Interpretation Summary The estimated ejection fraction is 55-60 %. Negative Buble study Negative MARY CARMEN for valvular vegetation Ordering Physician: Aurora Shirley Referring Physician: no PCP Performed By: Wagner Tang RCS
--- NOTE | 2021-01-05 16:22 | PN.HOSP_ITS ---
Subjective Subjective Patient reports that nursing was refusing to given his Toradol. He states that this is effective for his pain. I did state it was possible that may not been due at that time but he insists this is not the case. He has Toradol ordered every 6 hours as needed. Patient states he is coughing up some blood-tinged sp utum. I did discuss that his hemoglobins were overall negative we will continue to monitor p and please let us know if this continues to be an issue. Objective Data Objective Data Vital Signs: Vital Signs Temp Pulse Resp BP Pulse Ox 98.2 F 111 H 18 134/76 H 99 01/05/21 15:15 01/05/21 16:11 01/05/21 15:15 01/05/21 15:15 01/05/21 15:15 Oxygen Delivery Method Room Air Weight: 68.7 kg Body Mass Index (BMI) 23.8 Intake & Output: Intake and Output for Last 24 Hours 01/03/21 01/04/21 01/05/21 23:59 23:59 23:59 Intake Total 3905.0 / 3905.0 1215 / 1215 905 / 905 Output Total 600 / 600 1300 / 1300 Balance 3905.0 / 3905.0 615 / 615 -395 / -395 Lab / Micro Data Result Diagrams: 01/05/21 06:44 01/05/21 06:44 Labs: Laboratory Results - last 24 hr 01/04/21 05:44: SARS-CoV-2 IgG Ab 0.61 01/04/21 22:31: Vancomycin Trough 10.8 01/05/21 06:44: WBC 9.2, RBC 3.35 L, Hgb 9.6 L, Hct 28.5 L, MCV 85.1, MCH 28.7, MCHC 33.7, RDW Std Deviation 44.9 H, RDW Coeff of Jefferson 14.4, Plt Count 172, MPV 9.2, Immature Gran % (Auto) 1.100 H, Neut % (Auto) 71.0 H, Lymph % (Auto) 18.2 L , [place] % (Auto) 7.6, Eos % (Auto) 1.7, Baso % (Auto) 0.4, Absolute Neuts (auto) 6.6, Absolute Lymphs (auto) 1.68, Nucleated RBC % 0 01/05/21 06:44: Sodium 133 L, Potassium 3.7, Chloride 101, Carbon Dioxide 24.0, Anion Gap 8, BUN 12, Creatinine 0.69 L, Estim Creat Clear Calc 142.55, Est GFR (MDRD) Af Amer 175, Est GFR (MDRD) Non-Af 145, BUN/Creatinine Ratio 17.4, Glucose 101, Calcium 7.7 L Micro: Microbiology 01/04/21 05:44 Blood Culture (Wb) - Anticubital Right Blood Culture - Final Staphylococcus aureus 01/03/21 13:26 Blood Culture (Wb) - Anticubital Right Blood Culture - Final Staphylococcus aureus 01/02/21 17:40 Blood Culture (Wb) - Anticubital Left Blood Culture - Final Staphylococcus aureus 01/02/21 17:45 Blood Culture (Wb) - Right Forearm Bacteria Detection (PCR) - Final Meth. resistant Staph. aureus 01/02/21 17:45 Blood Culture (Wb) - Right Forearm Blood Culture - Final Meth. resistant Staph. aureus 01/02/21 17:55 Mucosa - Nasopharyngeal Respiratory Panel (PCR) - Final 01/02/21 16:18 Nasal Secretion SARS-CoV-2 Antigen (Rapid) - Final 01/02/21 16:18 Interface Orders Group A Streptococcus Rapid Screen - Final Streptococcus Group A Radiography Diagnostic Testing: Radiology Impression Transesophageal Echocardiogram 01/05/21 11:00 Interpretation Summary The estimated ejection fraction is 55-60 %. Negative Buble study Negative MARY CARMEN for valvular vegetation __ Ordering Physician: Aurora Shirley Referring Physician: no PCP Performed By: Wagner Tang RCS Physical Exam Const alert, oriented x3, no apparent distress and average body habitus Constitutional Narrative: Middle-aged white male sitting up in bed eating break fast and watching television, appears comfortable and nontoxic at this time, nursing at bedside Exam Limitations: no limitations HEENT head/scalp atraumatic and moist oral mucous membranes HEENT Narrative: No thrush, Mallampati 2, lips are somewhat cracked Head and Scalp: normocephalic Eyes Eyes Narrative: No scleral icterus Resp normal respiratory effort, no retractions, no use of accessory muscles and clear to auscultation bilaterally Auscultation: Negative for crackles, rales, rhonchi or wheezes Cardio regular rhythm, S1 normal heart sound, S2 normal heart sound, no murmurs, no rub, no gallops, no clicks and no JVD Cardio Narrative: Mild tachycardia GI normal to inspection, nondistended, normoactive bowel sounds, soft to palpation, non-tender and non-distended Extremity no clubbing, cyanosis or edema Peripheral Pulses: Yes pulses 2+ throughout Neuro oriented x3, moves all extremities and no focal motor deficits Neuro Narrative: Bilateral lower extremity weakness, reflexes 2+ Sensorium / Orientation: awake and alert Speech: speech normal Assessment & Plan Assessment/Plan (1) MRSA bacteremia: (2) Pulmonary embolism, septic: (3) Opiate withdrawal: (4) Acute lumbar back pain: QUALIFIERS: Back pain laterality: midline Sciatica presence: unspecified whether sciatica present Qualified Code(s): M54.50 - Low back pain, unspecified (5) Sepsis: (6) Normocytic anemia: (7) Thrombocytopenia: (8) Hyponatremia: (9) Hypokalemia: (10) Strep throat: PLAN: Sepsis secondary to MRSA bacteremia -Patient with borderline blood pressures, tachycardia, tachypnea, and fever with a source of infection -Suspect infective endocarditis given CT with septic pulmonary emboli -Surface echo negative for any valvular vegetations and EF is normal at 65% -MARY CARMEN negative for valvular vegetations -MRI is negative for any signs of infection -Continue antibiotics as ordered -Repeat blood culture from 01/03/2021 and 01/04/2021 remains positive with gram- positive cocci in clusters -Patient will have cultures today and tomorrow for follow-up -Continue vancomycin... Zosyn was discontinued today by infectious disease -Infectious diseases following Septic pulmonary emboli -See above -Toradol for pain management as patient does not want to use opiates given his history of addiction Acute lumbar pain -MRI is negative for any signs of acute infection -Continue pain management as noted -Overall pain and weakness in his lower extremities are much improved per discussion with patient today. Hyponatremia -Suspect hypovolemic hyponatremia as sodiums are improving -Stable at 133 -Repeat in a.m. Strep pharyngitis -Antibiotics as above Normocytic anemia -Unclear if this is acute or chronic as we have no baseline laboratory data -Hemoglobin is stable -Suspect decreased some given acute infection -No signs of acute bleeding -Continue to monitor Thrombocytopenia -Resolved Acute opiate withdrawal -Buprenorphine taper -Supportive medications -180 consultation History of IVDU -See above -HIV negative History of hepatitis C -Would recommend treatment with GI once patient demonstrate sobriety DVT prophylaxis -Continue enoxaparin -SCDs CODE STATUS -Full code Charges/Coding Visit Charges Inpatient E&M: 17011 Subs Hosp L2
[2021-01-05] MEDS: Acetaminophen 325 MG Tablet 650 MG PO (20:11)
[2021-01-06] VITALS (17 sets, daily range): BP systolic 97–156; BP diastolic 61–89; PULSE 87–120; RESP 16–18; TEMP -0.2–36.9; O2SAT 96–100
[2021-01-06] MEDS: Ketorolac 30 MG/ML Syringe 15 MG IV ×4 (02:22→21:40)
[2021-01-06] MEDS: Gabapentin 300 MG Capsule PO (02:39)
[2021-01-06] MEDS: cloNIDine HCl 0.1 MG Tablet PO (02:39)
[2021-01-06] MEDS: 0.9% Saline Lock 10 ML Syringe IV ×2 (02:40→15:16)
[2021-01-06 07:22] LABS: Absolute Lymphocyte Count 1.49 X10^3/uL (0.83-4.51); Absolute Neutrophil Count 7.8 X10^3/uL (2.0-7.7); Basophil# 0.03 X10^3/uL; Basophil% 0.3 % (0-1); Eosinophil# 0.18 X10^3/uL; Eosinophils% 1.7 % (0-5); Hemoglobin 9.5 g/dL (13.0-16.5); Lymphocyte # 1.49 X10^3/ul (0.83-4.51); Lymphocyte % 14.4 % (19-41); Mean Corp Hgb Conc 32.8 g/dL (32-36); Mean Corpuscular Hgb 28.7 pg (27.0-32.0); Mean Corpuscular Volume 87.6 fL (80-94); Monocyte# 0.74 X10^3/uL; Monocyte% 7.2 % (0-10); NRBC Flagged by Analyzer 0 % (0-5); Neutrophil # 7.76 X10^3/uL (2.7-7.7); Neutrophil % 75.1 % (47-70); Platelet Count 207 K/mm3 (150-450); RBC Distribution Width CV 14.5 % (11.6-14.6); RBC Distribution Width SD 46.6 fl (35.1-43.9); Red Blood Count 3.31 M/mm3 (4.6-6.2); White Blood Count 10.3 K/mm3 (4.4-11.0)
[2021-01-06 07:57] LABS: Anion Gap 5 (5-15); BUN 10 mg/dL (7-18); BUN/Creat Ratio 13.3 RATIO (10-20); Chloride 102 mmol/L (98-107); Creatinine, Serum 0.75 mg/dL (0.70-1.30); EST Glomerular Filtration Rate 130 mL/min (>60); Est Glom Filt Rate - Afr Amer 157 mL/min (>60); Estimated Creatinine Clearance 131.14 ml/min; Glucose 103 mg/dL (74-106); Potassium 4.2 mmol/L (3.5-5.1); Sodium Level 134 mmol/L (136-145); Vancomycin, Trough Level 13.1 ug/mL (5.0-15.0)
--- NOTE | 2021-01-06 08:23 | PCM.RX.CS ---
Consult Pharmacy has been consulted to manage selected antiobiotic: Vancomycin Type of Consult: Follow-up Suspected Infection: Bacteremia, Endocarditis Labs: Sodium 134 mmol/L (136-145) L 01/06/21 07:14 Potassium 4.2 mmol/L (3.5-5.1) 01/06/21 07:14 Chloride 102 mmol/L (98-107) 01/06/21 07:14 Carbon Dioxide 27.0 mmol/L (21.0-32.0) 01/06/21 07:14 Anion Gap 5 (5-15) 01/06/21 07:14 BUN 10 mg/dL (7-18) 01/06/21 07:14 Creatinine 0.75 mg/dL (0.70-1.30) 01/06/21 07:14 Est GFR (MDRD) Af Amer 157 mL/min (>60) 01/06/21 07:14 Est GFR (MDRD) Non-Af 130 mL/min (>60) 01/06/21 07:14 BUN/Creatinine Ratio 13.3 RATIO (10-20) 01/06/21 07:14 Glucose 103 mg/dL (74-106) 01/06/21 07:14 Vancomycin Trough 13.1 ug/mL (5.0-15.0) 01/06/21 07:14 Microbiology: Microbiology 01/05/21 09:30 Blood Culture (Wb) - Anticubital Right Blood Culture - Preliminary 01/04/21 05:44 Blood Culture (Wb) - Anticubital Right Blood Culture - Final Staphylococcus aureus 01/03/21 13:26 Blood Culture (Wb) - Anticubital Right Blood Culture - Final Staphylococcus aureus 01/02/21 17:40 Blood Culture (Wb) - Anticubital Left Blood Culture - Final Staphylococcus aureus 01/02/21 17:45 Blood Culture (Wb) - Right Forearm Bacteria Detection (PCR) - Final Meth. resistant Staph. aureus 01/02/21 17:45 Blood Culture (Wb) - Right Forearm Blood Culture - Final Meth. resistant Staph. aureus 01/02/21 17:55 Mucosa - Nasopharyngeal Respiratory Panel (PCR) - Final 01/02/21 16:18 Nasal Secretion SARS-CoV-2 Antigen (Rapid) - Final 01/02/21 16:18 Interface Orders Group A Streptococcus Rapid Screen - Final Streptococcus Group A Pharmacy Plan for Drug Dosing: VANCOMYCIN LEVEL RECEIVED Current Vancomycin Dose: 1500MG Q8 Number of Doses Received: 3 Vancomycin Level: 13.1 MG/DL Hours Since Last Dose: 7 Renal Function: SCR 0.75, CRCL 131 ML/MIN Renal Function Trend: STABLE Lab/Micro: MRSA IN BLOOD CX Vancomycin Plan/Comments: TROUGH WAS SUBTHERAPEUTIC, WILL INCREASE DOSE TO 1750MG Q8H STARTING AT 0900. WILL ORDER A TROUGH PRIOR TO 4TH DOSE PER POLICY. Pending Level: 01/07/21 @ 0830 Pharmacy Service will continue to monitor and adjust dosing as required.
[2021-01-06] MEDS: Lidocaine 5% Patch 2 PATCH TOPICAL (08:31)
[2021-01-06] MEDS: Enoxaparin 40 MG/0.4 ML Syringe SC (08:35)
[2021-01-06] MEDS: Famotidine 20 MG Tablet PO ×2 (08:37→21:39)
[2021-01-06 10:07] LABS: HEPATITIS B SURFACE AG Negative (Negative); Hepatitis B Core Ab Total Negative (Negative); Hepatitis C Ab <0.1 s/co ratio (0.0-0.9)
[2021-01-06] MEDS: Metoprolol Tartrate 25 MG Tablet PO ×2 (12:38→21:39)
--- NOTE | 2021-01-06 13:15 | PCM.CONS.C ---
Assessment & Plan Assessment/Plan (1) Suspected COVID-19 virus infection: (2) Strep throat: (3) Hypokalemia: (4) MRSA bacteremia: PLAN: This patient is 30-year-old with a polysubstance abuse Seen and evaluated by the infectious disease specialist Patient has MRSA bacteremia Hep C and a clinical suspicious for COVID-19 based on his lab result test and clinical presentation. Patient did not receive Covid vaccine. Currently is on vancomycin IV Cardiac care plan recommendations; Patient has evaluation by transthoracic echocardiogram and transesophageal echocardiogram Showed LV function preserved, No signs of valvular vegetation noted. On cardiac telemetry patient remains on sinus rhythm with sinus tachycardia. Today we added low-dose beta-nathalie metoprolol. We will continue to monitor and follow-up clinically From cardiac standpoint no further cardiac input required to continue antibiotic treatment as guided by the infectious disease specialist recommendation. Patient can be set up for outpatient cardiology follow-up 2 to 3 weeks. (5) Opiate withdrawal: (6) Acute lumbar back pain: QUALIFIERS: Back pain laterality: midline Sciatica presence: unspecified whether sciatica present Qualified Code(s): M54.50 - Low back pain, unspecified HPI Consult Data Date of Consult: 01/07/21 HPI Narrative Reason for Consultation: IVDU/MRSA bacteremia/infective endocarditis HPI Narrative: LUCÍA CASSIDY, is a 30 M who presents [facility] Medical History Hepatitis C IV drug user Polysubstance abuse Testicular cancer Tobacco use Allergy/AdvReac Type Severity Reaction Status Date / Time latex AdvReac Itching Verified 01/02/21 15:38 Family History (Updated 01/02/21 @ 17:[address] Deena Graham MD) Mother Heart disease Father Heart disease Surgical History (Updated 01/02/21 @ 17:[address] Deena Graham MD) History of surgery on arm Hx of unilateral orchiectomy Social History (Updated 01/02/21 @ 17:[address] Deena Graham MD) household members: significant other Smoking Status: Current every day smoker tobacco type: cigarettes Smoking packs per day: 1 Smoking cigarettes per day: 20.0 alcohol intake: current alcohol intake frequency: holidays/special occasions only substance use type: crack/cocaine, heroin, opiates, IV drugs and other details: Currently 1/2 gm daily heroin and fentanyl. Physical Exam Narrative Patient alert orientated/not in acute distress Noted left thumb splinter hemorrhage His symptoms improving on the current IV antibiotic with vancomycin Cardiac examination; S1-S2 regular, no pericardial rub, no gallop rhythm and no heart murmur Chest examination; clear to auscultation bilateral Examination lower extremities; no clubbing no cyanosis no lower extremity edema Central nervous system exam no focal logical deficit. Risk Stratification Risk Stratification Applicable: No Objective Data Vital Signs: Vital Signs Temp Pulse Resp BP Pulse Ox 98.1 F 87 16 97/61 99 01/06/21 12:10 01/06/21 12:38 01/06/21 12:10 01/06/21 12:38 01/06/21 12:15 Oxygen Delivery Method Room Air Weight: 159 lb 9.835 oz Body Mass Index (BMI) 23.8 Intake & Output: Intake and Output for Last 24 Hours 01/04/21 01/05/21 01/06/21 23:59 23:59 23:59 Intake Total 1215 / 1215 1675 / 1675 1065 / 1065 Output Total 600 / 600 3225 / 3225 425 / 425 Balance 615 / 615 -1550 / -1550 640 / 640 Lab / Micro Data Result Diagrams: 01/07/21 06:50 01/07/21 06:50 Labs: Laboratory Results - last 24 hr 01/06/21 07:14: WBC 10.3, RBC 3.31 L, Hgb 9.5 L, Hct 29.0 L, MCV 87.6, MCH 28.7, MCHC 32.8, RDW Std Deviation 46.6 H, RDW Coeff of Jefferson 14.5, Plt Count 207, MPV 9.0, Immature Gran % (Auto) 1.300 H, Neut % (Auto) 75.1 H, Lymph % (Auto) 14.4 L, [place] % (Auto) 7.2, Eos % (Auto) 1.7, Baso % (Auto) 0.3, Absolute Neuts (auto) 7.8 H, Absolute Lymphs (auto) 1.49, Nucleated RBC % 0 01/06/21 07:14: Sodium 134 L, Potassium 4.2, Chloride 102, Carbon Dioxide 27.0, Anion Gap 5, BUN 10, Creatinine 0.75, Estim Creat Clear Calc 131.14, Est GFR (MDRD) Af Amer 157, Est GFR (MDRD) Non-Af 130, BUN/Creatinine Ratio 13.3, Glucose 103, Calcium 8.0 L 01/06/21 07:14: Vancomycin Trough 13.1 Micro: Microbiology 01/05/21 09:30 Blood Culture (Wb) - Anticubital Right Blood Culture - Preliminary Cardiology Labs/Tests 01/06/21 07:14: WBC 10.3, RBC 3.31 L, Hgb 9.5 L, Hct 29.0 L, MCV 87.6, MCH 28.7, MCHC 32.8, Plt Count 207, MPV 9.0, Immature Gran % (Auto) 1.300 H, Neut % (Auto) 75.1 H, Lymph % (Auto) 14.4 L, [place] % (Auto) 7.2, Eos % (Auto) 1.7, Baso % (Auto) 0.3, Absolute Neuts (auto) 7.8 H, Nucleated RBC % 0 01/06/21 07:14: Sodium 134 L, Potassium 4.2, Chloride 102, Carbon Dioxide 27.0, Anion Gap 5, BUN 10, Creatinine 0.75, Est GFR (MDRD) Af Amer 157, Est GFR (MDRD) Non-Af 130, BUN/Creatinine Ratio 13.3, Glucose 103, Calcium 8.0 L Rhythm: Normal sinus rhythm EKG: Normal sinus rhythm ECHO: Normal LV systolic function, no valvular vegetation noted Radiography Diagnostic Testing: Radiology Impression Transesophageal Echocardiogram 01/05/21 11:00 Interpretation Summary The estimated ejection fraction is 55-60 %. Negative Buble study Negative MARY CARMEN for valvular vegetation Ordering Physician: Aurora Shirley Referring Physician: no PCP Performed By: Wanger Tang RCS
[2021-01-06 13:41] LABS: Hep B Surface Antibodies Reactive (.)
[2021-01-06 13:43] LABS: SAR-COV-2 IGM ANTIBODY Negative (Negative)
--- NOTE | 2021-01-06 14:24 | PN.HOSP_ITS ---
Subjective Subjective Patient reports that he is overall feeling better. He states his pain is well controlled when he takes medication for this. He would like to get out of bed and be able to take a shower today; I told him this would be fine. We discussed his overall probable plan of long-term IV antibiotics but that we are waiting fo r ID to finalize this plan. He states he is willing to drive at least twice a day to [place] to get outpatient antibiotic infusions rather than having to be placed. I told him I would discuss this with case management and they would be in contact with him once we know further what the plan of care is for him. Objective Data Objective Data Vital Signs: Vital Signs Temp Pulse Resp BP Pulse Ox 98.1 F 87 16 97/61 99 01/06/21 12:10 01/06/21 12:38 01/06/21 12:10 01/06/21 12:38 01/06/21 12:15 Oxygen Delivery Method Room Air Weight: 72.4 kg Body Mass Index (BMI) 23.8 Intake & Output: Intake and Output for Last 24 Hours 01/04/21 01/05/21 01/06/21 23:59 23:59 23:59 Intake Total 1215 / 1215 1675 / 1675 1065 / 1065 Output Total 600 / 600 3225 / 3225 425 / 425 Balance 615 / 615 -1550 / -1550 640 / 640 Lab / Micro Data Result Diagrams: 01/06/21 07:14 01/06/21 07:14 Labs: Laboratory Results - last 24 hr 01/02/21 16:10: Hep Bs Antigen Negative, Hep Bs Antibody Reactive, Hep B Core Total Ab Negative, Hepatitis C Antibody <0.1, Hep C Ab Comment Comment 01/04/21 05:44: SARS-CoV-2 IgM Ab Negative 01/06/21 07:14: WBC 10.3, RBC 3.31 L, Hgb 9.5 L, Hct 29.0 L, MCV 87.6, MCH 28.7, MCHC 32.8, RDW Std Deviation 46.6 H, RDW Coeff of Jefferson 14.5, Plt Count 207, MPV 9.0, Immature Gran % (Auto) 1.300 H, Neut % (Auto) 75.1 H, Lymph % (Auto) 14.4 L , [place] % (Auto) 7.2, Eos % (Auto) 1.7, Baso % (Auto) 0.3, Absolute Neuts (auto) 7.8 H, Absolute Lymphs (auto) 1.49, Nucleated RBC % 0 01/06/21 07:14: Sodium 134 L, Potassium 4.2, Chloride 102, Carbon Dioxide 27.0, Anion Gap 5, BUN 10, Creatinine 0.75, Estim Creat Clear Calc 131.14, Est GFR (MDRD) Af Amer 157, Est GFR (MDRD) Non-Af 130, BUN/Creatinine Ratio 13.3, Glucose 103, Calcium 8.0 L 01/06/21 07:14: Vancomycin Trough 13.1 Micro: Microbiology 01/05/21 09:30 Blood Culture (Wb) - Anticubital Right Blood Culture - Preliminary 01/04/21 05:44 Blood Culture (Wb) - Anticubital Right Blood Culture - Final Staphylococcus aureus 01/03/21 13:26 Blood Culture (Wb) - Anticubital Right Blood Culture - Final Staphylococcus aureus 01/02/21 17:40 Blood Culture (Wb) - Anticubital Left Blood Culture - Final Staphylococcus aureus 01/02/21 17:45 Blood Culture (Wb) - Right Forearm Bacteria Detection (PCR) - Final Meth. resistant Staph. aureus 01/02/21 17:45 Blood Culture (Wb) - Right Forearm Blood Culture - Final Meth. resistant Staph. aureus 01/02/21 17:55 Mucosa - Nasopharyngeal Respiratory Panel (PCR) - Final 01/02/21 16:18 Nasal Secretion SARS-CoV-2 Antigen (Rapid) - Final 01/02/21 16:18 Interface Orders Group A Streptococcus Rapid Screen - Final Streptococcus Group A Radiography Diagnostic Testing: Radiology Impression Transesophageal Echocardiogram 01/05/21 11:00 Interpretation Summary The estimated ejection fraction is 55-60 %. Negative [place]uble study Negative MARY CARMEN for valvular vegetation Ordering Physician: Aurora Shirley Referring Physician: no PCP Performed By: Wagner Tang RCS Physical Exam Const alert, oriented x3, no apparent distress and average body habitus Constitutional Narrative: Middle-aged white male sitting up in bed eating breakfast and watching television, appears comfortable and nontoxic at this time Exam Limitations: no limitations HEENT head/scalp atraumatic and moist oral mucous membranes Head and Scalp: normocephalic Resp normal respiratory effort, no retractions, no use of accessory muscles and clear to auscultation bilaterally Auscultation: Negative for crackles, rales, rhonchi or wheezes Cardio regular rhythm, S1 normal heart sound, S2 normal heart sound, no murmurs, no rub, no gallops, no clicks and no JVD Cardio Narrative: Mild tachycardia GI normal to inspection, nondistended, normoactive bowel sounds, soft to palpation, non-tender and non-distended Extremity no clubbing, cyanosis or edema Peripheral Pulses: Yes pulses 2+ throughout Neuro oriented x3, moves all extremities and no focal motor deficits Neuro Narrative: Bilateral lower extremity weakness, reflexes 2+ Sensorium / Orientation: awake and alert Speech: speech normal Assessment & Plan Assessment/Plan (1) MRSA bacteremia: (2) Pulmonary embolism, septic: (3) Opiate withdrawal: (4) Acute lumbar back pain: QUALIFIERS: Back pain laterality: midline Sciatica presence: unspecified whether sciatica present Qualified Code(s): M54.50 - Low back pain, unspecified (5) Sepsis: (6) Normocytic anemia: (7) Thrombocytopenia: (8) Hyponatremia: (9) Hypokalemia: (10) Strep throat: PLAN: Sepsis secondary to MRSA bacteremia -Patient with borderline blood pressures, tachycardia, tachypnea, and fever with a source of infection -Suspect infective endocarditis given CT with septic pulmonary emboli -Surface echo negative for any valvular vegetations and EF is normal at 65% -MARY CARMEN negative for valvular vegetations -MRI is negative for any signs of infection -Continue antibiotics as ordered -Repeat blood culture from 01/03/2021, 01/04/2021, and 01/05/2021 remains positive with gram-positive cocci in clusters -Patient will have cultures today and tomorrow for follow-up -Continue vancomycin with dosing management per pharmacy -Infectious diseases following -Patient would like to go to outpatient for infusion even if it is twice daily rather than being placed in a facility for long-term antibiotics -Discussed with case management today and they will address further once we have a plan from infectious disease Septic pulmonary emboli -See above -Toradol for pain management as patient does not want to use opiates given his history of addiction Acute lumbar pain -MRI is negative for any signs of acute infection -Improved -Continue pain management as noted -Overall pain and weakness in his lower extremities are much improved per discussion with patient today. Hyponatremia -Suspect hypovolemic hyponatremia as sodiums are improving -Improved to 134 today -Repeat in a.m. Strep pharyngitis -Antibiotics as above Normocytic anemia -Unclear if this is acute or chronic as we have no baseline laboratory data -Hemoglobin is stable -Suspect decreased some given acute infection -No signs of acute bleeding -Continue to monitor Acute opiate withdrawal -Buprenorphine taper completed -Supportive medications -180 consultation History of IVDU -See above -HIV negative History of hepatitis C -Would recommend treatment with GI once patient demonstrate sobriety DVT prophylaxis -Continue enoxaparin -SCDs CODE STATUS -Full code Charges/Coding Visit Charges Inpatient E&M: 87247 Subs Hosp L2
[2021-01-07] VITALS (11 sets, daily range): BP systolic 112–152; BP diastolic 65–83; PULSE 77–114; RESP 14–16; TEMP 36.7–37.4; O2SAT 97–98
[2021-01-07] MEDS: Methocarbamol 750 MG Tablet 1500 MG PO ×2 (02:02→10:40)
[2021-01-07] MEDS: traZODone 100 MG Tablet PO (02:02)
[2021-01-07] MEDS: Ketorolac 30 MG/ML Syringe 15 MG IV ×3 (06:13→20:26)
[2021-01-07 07:51] LABS: Absolute Lymphocyte Count 1.88 X10^3/uL (0.83-4.51); Absolute Neutrophil Count 6.3 X10^3/uL (2.0-7.7); Basophil# 0.03 X10^3/uL; Basophil% 0.3 % (0-1); Eosinophil# 0.21 X10^3/uL; Eosinophils% 2.2 % (0-5); Hematocrit 29.3 % (40-54); Hemoglobin 9.5 g/dL (13.0-16.5); Lymphocyte # 1.88 X10^3/ul (0.83-4.51); Lymphocyte % 20.1 % (19-41); Mean Corp Hgb Conc 32.4 g/dL (32-36); Mean Corpuscular Volume 86.4 fL (80-94); Mean Platelet Vol. 9.5 fl (6.2-12.0); Monocyte# 0.78 X10^3/uL; Monocyte% 8.3 % (0-10); NRBC Flagged by Analyzer 0 % (0-5); Neutrophil # 6.33 X10^3/uL (2.7-7.7); Neutrophil % 67.8 % (47-70); Platelet Count 247 K/mm3 (150-450); RBC Distribution Width CV 14.4 % (11.6-14.6); RBC Distribution Width SD 45.7 fl (35.1-43.9); Red Blood Count 3.39 M/mm3 (4.6-6.2); White Blood Count 9.4 K/mm3 (4.4-11.0)
[2021-01-07 08:21] LABS: Anion Gap 5 (5-15); BUN 11 mg/dL (7-18); BUN/Creat Ratio 17.7 RATIO (10-20); Chloride 104 mmol/L (98-107); Creatinine, Serum 0.62 mg/dL (0.70-1.30); EST Glomerular Filtration Rate 162 mL/min (>60); Est Glom Filt Rate - Afr Amer 196 mL/min (>60); Estimated Creatinine Clearance 158.64 ml/min; Glucose 98 mg/dL (74-106); Potassium 4.2 mmol/L (3.5-5.1); Sodium Level 134 mmol/L (136-145)
--- NOTE | 2021-01-07 09:06 | NURSING ---
[employer]idential [employer]odi will run/assess tele monitoring/strips
[2021-01-07 10:13] LABS: Vancomycin, Trough Level 17.3 ug/mL (5.0-15.0)
--- NOTE | 2021-01-07 10:38 | NURSING ---
states his anxiety is medium-high see prn mar
[2021-01-07] MEDS: Lidocaine 5% Patch 2 PATCH TOPICAL (10:39)
[2021-01-07] MEDS: 0.9% Saline Lock 10 ML Syringe IV ×3 (10:40→20:26)
[2021-01-07] MEDS: Famotidine 20 MG Tablet PO ×2 (10:40→20:36)
[2021-01-07] MEDS: Gabapentin 300 MG Capsule PO (10:40)
[2021-01-07] MEDS: Enoxaparin 40 MG/0.4 ML Syringe SC (10:40)
[2021-01-07] MEDS: Metoprolol Tartrate 25 MG Tablet PO ×2 (10:40→20:36)
--- NOTE | 2021-01-07 10:56 | PCM.RX.CS ---
Consult Pharmacy has been consulted to manage selected antiobiotic: Vancomycin Type of Consult: Follow-up Suspected Infection: Bacteremia Labs: Sodium 134 mmol/L (136-145) L 01/07/21 06:50 Potassium 4.2 mmol/L (3.5-5.1) 01/07/21 06:50 Chloride 104 mmol/L (98-107) 01/07/21 06:50 Carbon Dioxide 25.0 mmol/L (21.0-32.0) 01/07/21 06:50 Anion Gap 5 (5-15) 01/07/21 06:50 BUN 11 mg/dL (7-18) 01/07/21 06:50 Creatinine 0.62 mg/dL (0.70-1.30) L 01/07/21 06:50 Est GFR (MDRD) Af Amer 196 mL/min (>60) 01/07/21 06:50 Est GFR (MDRD) Non-Af 162 mL/min (>60) 01/07/21 06:50 BUN/Creatinine Ratio 17.7 RATIO (10-20) 01/07/21 06:50 Glucose 98 mg/dL (74-106) 01/07/21 06:50 Vancomycin Trough 17.3 ug/mL (5.0-15.0) H 01/07/21 09:30 Microbiology: Microbiology 01/05/21 09:30 Blood Culture (Wb) - Anticubital Right Blood Culture - Final Staphylococcus aureus 01/06/21 09:16 Blood Culture (Wb) - Anticubital Right Blood Culture - Preliminary 01/04/21 05:44 Blood Culture (Wb) - Anticubital Right Blood Culture - Final Staphylococcus aureus 01/03/21 13:26 Blood Culture (Wb) - Anticubital Right Blood Culture - Final Staphylococcus aureus 01/02/21 17:40 Blood Culture (Wb) - Anticubital Left Blood Culture - Final Staphylococcus aureus 01/02/21 17:45 Blood Culture (Wb) - Right Forearm Bacteria Detection (PCR) - Final Meth. resistant Staph. aureus 01/02/21 17:45 Blood Culture (Wb) - Right Forearm Blood Culture - Final Meth. resistant Staph. aureus 01/02/21 17:55 Mucosa - Nasopharyngeal Respiratory Panel (PCR) - Final 01/02/21 16:18 Nasal Secretion SARS-CoV-2 Antigen (Rapid) - Final 01/02/21 16:18 Interface Orders Group A Streptococcus Rapid Screen - Final Streptococcus Group A Goal Trough: 15-20 mcg/mL Pharmacy Plan for Drug Dosing: VANCOMYCIN LEVEL RECEIVED Current Vancomycin Dose: 1750MG Q8H Number of Doses Received: 1750MG X3, MANY BEFORE RECENT DOSE CHANGE Vancomycin Level: 17.3 MG/DL Hours Since Last Dose: 8 Renal Function: SCR 0.62, CRCL 158 ML/MIN Renal Function Trend: STABLE Lab/Micro: STAPH IN BLOOD CX Vancomycin Plan/Comments: 8 HOUR TROUGH WAS THERAPEUTIC. WILL CONTINUE CURRENT DOSING AND ORDER A TROUGH IN 2 DAYS PER POLICY. Pending Level: 01/09/21 @ 0830 Pharmacy Service will continue to monitor and adjust dosing as required.
--- NOTE | 2021-01-07 10:56 | NURSING ---
pt states he wants to be able to have his room phone or his own personal cell phone that is locked in his bins. pt states that if he cannot have his room phone then he would like to leave. will inform md and charge nurse
--- NOTE | 2021-01-07 11:00 | NURSING ---
pt using profanity, states he is frustrated, see prior note.
--- NOTE | 2021-01-07 14:34 | PCM.PN.HOSP ---
Subjective Subjective Patient states he got up and took a shower and felt good to do so. He still having intermittent pain but states it responds well to pain medication. He denies any current issues. He is asking to utilize his phone and I told him I would have to discuss it with nursing as policy for detox admissions is to not allow the patient to have phone as part of the agreement he signed out admission however he has completed his detox so this will be up to nursing at this point. He voices understanding. Objective Data Objective Data Vital Signs: Vital Signs Temp Pulse Resp BP Pulse Ox 98.1 F 81 16 112/71 98 01/07/21 10:35 01/07/21 10:40 01/07/21 10:35 01/07/21 10:35 01/07/21 10:35 Oxygen Delivery Method Room Air Weight: 74.4 kg Body Mass Index (BMI) 23.8 Intake & Output: Intake and Output for Last 24 Hours 01/05/21 01/06/21 01/07/21 23:59 23:59 23:59 Intake Total 1675 / 1675 2150 / 2450 1235 / 1235 Output Total 3225 / 3225 725 / 725 700 / 700 Balance -1550 / -1550 1425 / 1725 535 / 535 Lab / Micro Data Result Diagrams: 01/07/21 06:50 01/07/21 06:50 Labs: Laboratory Results - last 24 hr 01/07/21 06:50: WBC 9.4, RBC 3.39 L, Hgb 9.5 L, Hct 29.3 L, MCV 86.4, MCH 28.0, MCHC 32.4, RDW Std Deviation 45.7 H, RDW Coeff of [place] 14.4, Plt Count 247, MPV 9.5, Immature Gran % (Auto) 1.300 H, Neut % (Auto) 67.8, Lymph % (Auto) 20.1, [place] % (Auto) 8.3, Eos % (Auto) 2.2, Baso % (Auto) 0.3, Absolute Neuts (auto) 6.3, Absolute Lymphs (auto) 1.88, Nucleated RBC % 0 01/07/21 06:50: Sodium 134 L, Potassium 4.2, Chloride 104, Carbon Dioxide 25.0, Anion Gap 5, BUN 11, Creatinine 0.62 L, Estim Creat Clear Calc 158.64, Est GFR (MDRD) Af Amer 196, Est GFR (MDRD) Non-Af 162, BUN/Creatinine Ratio 17.7, Glucose 98, Calcium 8.0 L 01/07/21 09:30: Vancomycin Trough 17.3 H Micro: Microbiology 01/05/21 09:30 Blood Culture (Wb) - Anticubital Right Blood Culture - Final Staphylococcus aureus 01/06/21 09:16 Blood Culture (Wb) - Anticubital Right Blood Culture - Preliminary 01/04/21 05:44 Blood Culture (Wb) - Anticubital Right Blood Culture - Final Staphylococcus aureus 01/03/21 13:26 Blood Culture (Wb) - Anticubital Right Blood Culture - Final Staphylococcus aureus 01/02/21 17:40 Blood Culture (Wb) - Anticubital Left Blood Culture - Final Staphylococcus aureus 01/02/21 17:45 Blood Culture (Wb) - Right Forearm Bacteria Detection (PCR) - Final Meth. resistant Staph. aureus 01/02/21 17:45 Blood Culture (Wb) - Right Forearm Blood Culture - Final Meth. resistant Staph. aureus 01/02/21 17:55 Mucosa - Nasopharyngeal Respiratory Panel (PCR) - Final 01/02/21 16:18 Nasal Secretion SARS-CoV-2 Antigen (Rapid) - Final 01/02/21 16:18 Interface Orders Group A Streptococcus Rapid Screen - Final Streptococcus Group A Physical Exam Const alert, oriented x3, no apparent distress and average body habitus Constitutional Narrative: Middle-aged white male sitting up in bed watching television, appears comfortable and nontoxic at this time Exam Limitations: no limitations HEENT head/scalp atraumatic and moist oral mucous membranes Head and Scalp: normocephalic Resp normal respiratory effort, no retractions, no use of accessory muscles and clear to auscultation bilaterally Resp Narrative: Auscultation: Negative for crackles, rales, rhonchi or wheezes Cardio regular rate, regular rhythm, S1 normal heart sound, S2 normal heart sound, no murmurs, no rub, no gallops, no clicks and no JVD GI normal to inspection, nondistended, normoactive bowel sounds, soft to palpation, non-tender and non-distended Extremity no clubbing, cyanosis or edema Peripheral Pulses: Yes pulses 2+ throughout Skin no mottling Neuro oriented x3, moves all extremities and no focal motor deficits Neuro Narrative: Bilateral lower extremity weakness, reflexes 2+ Sensorium / Orientation: awake and alert Speech: speech normal Psych affect normal Assessment & Plan Assessment/Plan (1) MRSA bacteremia: (2) Pulmonary embolism, septic: (3) Opiate withdrawal: (4) Acute lumbar back pain: QUALIFIERS: Back pain laterality: midline Sciatica presence: unspecified whether sciatica present Qualified Code(s): M54.50 - Low back pain, unspecified (5) Sepsis: (6) Normocytic anemia: (7) Thrombocytopenia: (8) Hyponatremia: (9) Hypokalemia: (10) Strep throat: PLAN: Sepsis secondary to MRSA bacteremia -Patient with borderline blood pressures, tachycardia, tachypnea, and fever with a source of infection -Suspect infective endocarditis given CT with septic pulmonary emboli -Surface echo negative for any valvular vegetations and EF is normal at 65% -MARY CARMEN negative for valvular vegetations -MRI is negative for any signs of infection -Continue antibiotics as ordered -Repeat blood culture from 01/03/2021, 01/04/2021, 01/05/2021 and 01/06/2021 remains positive with gram-positive cocci in clusters (MRSA) -Patient will have cultures today and tomorrow for follow-up -Continue vancomycin with dosing management per pharmacy -Infectious diseases following--> question antibiotic changed to Dapto -Patient would like to go to outpatient for infusion even if it is twice daily rather than being placed in a facility for long-term antibiotics -Discussed with case management today and they will address further once we have a plan from infectious disease Septic pulmonary emboli -See above -Toradol for pain management as patient does not want to use opiates given his history of addiction Acute lumbar pain -MRI is negative for any signs of acute infection -Improved -Continue pain management as noted -Overall pain and weakness in his lower extremities are much improved per discussion with patient today. Hyponatremia -Suspect hypovolemic hyponatremia as sodiums are improving -Stable at 134 today -Repeat in a.m. Strep pharyngitis -Antibiotics as above Normocytic anemia -Unclear if this is acute or chronic as we have no baseline laboratory data -Hemoglobin is stable -Suspect decreased some given acute infection -No signs of acute bleeding -Continue to monitor Acute opiate withdrawal -Buprenorphine taper completed -Supportive medications -180 consultation History of IVDU -See above -HIV negative History of hepatitis C -Would recommend treatment with GI once patient demonstrate sobriety DVT prophylaxis -Continue enoxaparin -SCDs CODE STATUS -Full code Charges/Coding Visit Charges Inpatient E&M: 66316 Subs Hosp L2
[2021-01-08] VITALS (10 sets, daily range): BP systolic 108–133; BP diastolic 69–88; PULSE 82–108; RESP 16–17; TEMP 36.9–37.2; O2SAT 97–100
[2021-01-08] MEDS: traZODone 100 MG Tablet PO ×2 (00:34→21:08)
[2021-01-08] MEDS: Ketorolac 30 MG/ML Syringe 15 MG IV ×2 (03:49→21:08)
[2021-01-08] MEDS: 0.9% Saline Lock 10 ML Syringe IV ×3 (03:50→21:08)
[2021-01-08 06:58] LABS: Absolute Lymphocyte Count 1.53 X10^3/uL (0.83-4.51); Absolute Neutrophil Count 6.6 X10^3/uL (2.0-7.7); Basophil# 0.03 X10^3/uL; Basophil% 0.3 % (0-1); Eosinophils% 1.1 % (0-5); Hematocrit 28.5 % (40-54); Hemoglobin 9.6 g/dL (13.0-16.5); Lymphocyte # 1.53 X10^3/ul (0.83-4.51); Lymphocyte % 16.8 % (19-41); Mean Corp Hgb Conc 33.7 g/dL (32-36); Mean Corpuscular Hgb 28.8 pg (27.0-32.0); Mean Corpuscular Volume 85.6 fL (80-94); Mean Platelet Vol. 9.1 fl (6.2-12.0); Monocyte# 0.73 X10^3/uL; NRBC Flagged by Analyzer 0 % (0-5); Neutrophil # 6.57 X10^3/uL (2.7-7.7); Neutrophil % 72.3 % (47-70); Platelet Count 277 K/mm3 (150-450); RBC Distribution Width CV 14.2 % (11.6-14.6); RBC Distribution Width SD 44.7 fl (35.1-43.9); Red Blood Count 3.33 M/mm3 (4.6-6.2); White Blood Count 9.1 K/mm3 (4.4-11.0)
[2021-01-08 07:19] LABS: Anion Gap 9 (5-15); BUN 10 mg/dL (7-18); BUN/Creat Ratio 16.4 RATIO (10-20); Calcium,Total 7.4 mg/dL (8.5-10.1); Chloride 103 mmol/L (98-107); Creatinine, Serum 0.61 mg/dL (0.70-1.30); EST Glomerular Filtration Rate 166 mL/min (>60); Est Glom Filt Rate - Afr Amer 201 mL/min (>60); Estimated Creatinine Clearance 161.24 ml/min; Glucose 110 mg/dL (74-106); Sodium Level 135 mmol/L (136-145)
[2021-01-08] MEDS: Enoxaparin 40 MG/0.4 ML Syringe SC (09:10)
[2021-01-08] MEDS: Famotidine 20 MG Tablet PO ×2 (09:10→21:07)
[2021-01-08] MEDS: Metoprolol Tartrate 25 MG Tablet PO ×2 (09:10→21:07)
[2021-01-08] MEDS: Lidocaine 5% Patch 2 PATCH TOPICAL (09:11)
[2021-01-08] MEDS: traMADol 50 MG Tablet PO (12:48)
--- NOTE | 2021-01-08 12:56 | PCM.PN.HOSP ---
Documented by User: Sonu BOWMAN 01/08/21 13:09 Subjective Subjective Patient is a 30-year-old male comfortably resting in bed, alert and orient x3. Patient does endorse some mild chills and fevers, but reports that these have improved from admission.. Denies development of any new symptoms overnight. Does not appear in acute distress. Objective Data Objective Data Vital Signs: Vital Signs Temp Pulse Resp BP Pulse Ox 98.4 F 87 16 123/73 H 97 01/08/21 08:45 01/08/21 09:10 01/08/21 08:45 01/08/21 08:45 01/08/21 08:45 Oxygen Delivery Method Room Air Weight: 163 lb 12.855 oz Body Mass Index (BMI) 23.8 Intake & Output: Intake and Output for Last 24 Hours 01/06/21 01/07/21 01/08/21 23:59 23:59 23:59 Intake Total 2150 / 2450 3025 / 3025 975.83 / 975.83 Output Total 725 / 725 1300 / 1300 900 / 900 Balance 1425 / 1725 1725 / 1725 75.83 / 75.83 Lab / Micro Data Result Diagrams: 01/08/21 05:50 01/08/21 05:50 Labs: Laboratory Results - last 24 hr 01/08/21 05:50: WBC 9.1, RBC 3.33 L, Hgb 9.6 L, Hct 28.5 L, MCV 85.6, MCH 28.8, MCHC 33.7, RDW Std Deviation 44.7 H, RDW Coeff of [place] 14.2, Plt Count 277, MPV 9.1, Immature Gran % (Auto) 1.500 H, Neut % (Auto) 72.3 H, Lymph % (Auto) 16.8 L, Hand % (Auto) 8.0, Eos % (Auto) 1.1, Baso % (Auto) 0.3, Absolute Neuts (auto) 6.6, Absolute Lymphs (auto) 1.53, Nucleated RBC % 0 01/08/21 05:50: Sodium 135 L, Potassium 4.0, Chloride 103, Carbon Dioxide 23.0, Anion Gap 9, BUN 10, Creatinine 0.61 L, Estim Creat Clear Calc 161.24, Est GFR (MDRD) Af Amer 201, Est GFR (MDRD) Non-Af 166, BUN/Creatinine Ratio 16.4, Glucose 110 H, Calcium 7.4 L Micro: Microbiology 01/06/21 09:16 Blood Culture (Wb) - Anticubital Right Blood Culture - Preliminary Staphylococcus species 01/07/21 08:00 Blood Culture (Wb) - Right Wrist Blood Culture - Preliminary 01/07/21 09:30 Blood Culture (Wb) - Anticubital Right Blood Culture - Preliminary 01/05/21 09:30 Blood Culture (Wb) - Anticubital Right Blood Culture - Final Staphylococcus aureus 01/04/21 05:44 Blood Culture (Wb) - Anticubital Right Blood Culture - Final Staphylococcus aureus 01/03/21 13:26 Blood Culture (Wb) - Anticubital Right Blood Culture - Final Staphylococcus aureus 01/02/21 17:40 Blood Culture (Wb) - Anticubital Left Blood Culture - Final Staphylococcus aureus 01/02/21 17:45 Blood Culture (Wb) - Right Forearm Bacteria Detection (PCR) - Final Meth. resistant Staph. aureus 01/02/21 17:45 Blood Culture (Wb) - Right Forearm Blood Culture - Final Meth. resistant Staph. aureus 01/02/21 17:55 Mucosa - Nasopharyngeal Respiratory Panel (PCR) - Final 01/02/21 16:18 Nasal Secretion SARS-CoV-2 Antigen (Rapid) - Final 01/02/21 16:18 Interface Orders Group A Streptococcus Rapid Screen - Final Streptococcus Group A Physical Exam Const alert, oriented x3 and no apparent distress HEENT head/scalp atraumatic and moist oral mucous membranes Head and Scalp: normocephalic Eyes PERRL, EOMs intact bilaterally and conjunctivae normal Neck no lymphadenopathy, supple and no JVD Resp normal respiratory effort, no retractions, no use of accessory muscles and clear to auscultation bilaterally Cardio regular rate, no murmurs and no JVD GI normal to inspection, nondistended, normoactive bowel sounds, soft to palpation and non-tender Extremity normal to inspection, full ROM and no clubbing, cyanosis or edema Skin no rashes or lesions noted, no wounds, skin turgor normal and no jaundice Neuro CN's II-XII intact bilaterally Psych affect normal Assessment & Plan Assessment/Plan (1) Sepsis: (2) MRSA bacteremia: (3) Opiate withdrawal: (4) Acute lumbar back pain: QUALIFIERS: Back pain laterality: midline Sciatica presence: unspecified whether sciatica present Qualified Code(s): M54.50 - Low back pain, unspecified PLAN: Day 6 Discharge planning: Current plan is for patient to discharge home when medically ready. 1) MRSA Bactremia secondary to IVDU Patient no current meets criteria for sepsis as his vital signs are stabilized and his CBC does not demonstrate a white count. Blood cultures demonstrate Staphylococcus species. TTE or MARY CARMEN did not demonstrate any valvular vegetations and EF was normal at 65%. MRI did not demonstrate any signs for infection. HIV is negative although patient does have a patient of hepatitis C. ID is following and place the patient on daptomycin and ceftaroline. Repeat blood cultures will be obtained for clearance of infection. Patient will likely need long-term antibiotics, case management following for scheduling infusion versus placement at [facility]. 2) Septic pulmonary emboli Chest CT on admission demonstrated, continue Toradol for pain management. 3) acute lumbar pain Pain management as above, MRI negative for any signs of acute infection. 4) hyponatremia Resolved, sodium currently 135, continue to monitor BMP. a.m. 5) strep pharyngitis Rapid strep was positive on admission. Plan is antibiotics as above. 6) normocytic anemia Unclear of chronicity of anemia as there are no baseline data to compare to. Hemoglobin is stable. Continue to monitor. 7) acute opiate withdrawal 180 consult obtained, continue buprenorphine and supportive medications. DVT prophylaxis - Lovenox Patient seen by Sonu Cohen PA-C, under the supervision of Dr. Swan. Documented by User: Dr. Rony Allison DO 01/08/21 20:52 Objective Data Lab / Micro Data Result Diagrams: 01/08/21 05:50 01/08/21 05:50 Charges/Coding Addendum Addendum: Patient was seen and examined independently of Sonu Cohen, his latest blood culture resulted positive. On examination he appeared in good health and spirits. Vital signs as documented. Skin warm and dry and without overt rashes. Neck without JVD, neck was supple, trachea midline, thyroid was normal. Lungs clear bilaterally, normal air movement was noted. Heart exam notable for regular rhythm, normal sounds and absence of murmurs, rubs or gallops. Abdomen unremarkable and without evidence of organomegaly, masses, or abdominal aortic enlargement. Bowel sounds are present, abdomen is not distended. Extremities nonedematous, no cyanosis was noted, no clubbing was noted. Neuro: Cranial nerves II through XII are grossly intact, no focal motor deficits were noted, sensation to light touch and pinprick intact, motor exam 5/5 throughout. Psych: Patient is alert and oriented x3, he does not appear anxious or depressed, he does not appear agitated. I have reviewed Sonu Cohen's progress note including his medical assessment and plan of care and endorse it. Visit Charges Inpatient E&M: 01556 Subs Hosp L2
--- NOTE | 2021-01-08 13:04 | PCM.PN.ID ---
Physical Exam Narrative Feeling better, no fever, no abd pain Const alert General Appearance: cooperative Resp normal air movement and clear to auscultation bilaterally Cardio regular rate and regular rhythm GI normal to inspection, nondistended, normoactive bowel sounds Skin no rashes or lesions noted ID ID: Route of nutrition/ use of supplements: [] Nutritional Intake: [] IV Site: [] Garnica Catheter: [] Assessment & Plan Assessment/Plan (1) Pulmonary embolism, septic: (2) MRSA bacteremia: PLAN: MRSA bacteremia per PCR with suspected endocarditis, due to IVDU. Repeat bcx today. MARY CARMEN no veg. Still bcx rapidly turning (+). Will change vanc to dapto/ceftaroline. lumbar pain and BLE weakness - MRI neg for osteo/discitis/epidural abscess. Sx improved. suspected covid - sx for past week, unvaccinated. Cont isolation. PCR and Ag neg, neg Abs. Will stop iso today. IVDU/hep C - no prior treatment for hep C. HIV neg here. Will follow (3) Acute lumbar back pain: QUALIFIERS: Back pain laterality: midline Sciatica presence: unspecified whether sciatica present Qualified Code(s): M54.50 - Low back pain, unspecified (4) IV drug user: (5) Hepatitis C: (6) Suspected COVID-19 virus infection:
--- NOTE | 2021-01-08 14:47 | CASEMGMT ---
DIANE received a call from Lorenza, Filling Hauler with [employer]. She asked about the d/c plan for patient. DIANE told her it is not known yet. Her number is [phone] if assistance is needed for d/c plans. Lorenza said they can assist with transportation if necessary. Vannesa Winters [employer]
[2021-01-09] VITALS (13 sets, daily range): BP systolic 111–125; BP diastolic 62–87; PULSE 72–98; RESP 14–18; TEMP 36.6–37.2; O2SAT 98–100
[2021-01-09] MEDS: Ketorolac 30 MG/ML Syringe 15 MG IV ×4 (03:23→23:42)
[2021-01-09] MEDS: 0.9% Saline Lock 10 ML Syringe IV ×4 (03:24→21:29)
[2021-01-09 06:21] LABS: Absolute Lymphocyte Count 1.86 X10^3/uL (0.83-4.51); Absolute Neutrophil Count 5.7 X10^3/uL (2.0-7.7); Basophil# 0.02 X10^3/uL; Basophil% 0.2 % (0-1); Eosinophil# 0.07 X10^3/uL; Eosinophils% 0.8 % (0-5); Hematocrit 29.6 % (40-54); Hemoglobin 9.6 g/dL (13.0-16.5); Lymphocyte # 1.86 X10^3/ul (0.83-4.51); Lymphocyte % 22.3 % (19-41); Mean Corp Hgb Conc 32.4 g/dL (32-36); Mean Corpuscular Hgb 28.1 pg (27.0-32.0); Mean Corpuscular Volume 86.5 fL (80-94); Mean Platelet Vol. 9.1 fl (6.2-12.0); Monocyte% 7.2 % (0-10); NRBC Flagged by Analyzer 0 % (0-5); Neutrophil # 5.67 X10^3/uL (2.7-7.7); Neutrophil % 68.1 % (47-70); Platelet Count 316 K/mm3 (150-450); RBC Distribution Width CV 14.1 % (11.6-14.6); RBC Distribution Width SD 45.1 fl (35.1-43.9); Red Blood Count 3.42 M/mm3 (4.6-6.2); White Blood Count 8.3 K/mm3 (4.4-11.0)
[2021-01-09 06:24] LABS: Anion Gap 7 (5-15); BUN 10 mg/dL (7-18); BUN/Creat Ratio 15.2 RATIO (10-20); Calcium,Total 8.1 mg/dL (8.5-10.1); Chloride 103 mmol/L (98-107); Creatinine, Serum 0.66 mg/dL (0.70-1.30); EST Glomerular Filtration Rate 152 mL/min (>60); Est Glom Filt Rate - Afr Amer 184 mL/min (>60); Estimated Creatinine Clearance 149.03 ml/min; Glucose 134 mg/dL (74-106); Potassium 3.4 mmol/L (3.5-5.1); Sodium Level 136 mmol/L (136-145)
[2021-01-09] MEDS: Metoprolol Tartrate 25 MG Tablet PO ×2 (11:09→21:27)
[2021-01-09] MEDS: Enoxaparin 40 MG/0.4 ML Syringe SC (11:10)
[2021-01-09] MEDS: Famotidine 20 MG Tablet PO ×2 (11:10→21:27)
[2021-01-09] MEDS: Lidocaine 5% Patch 2 PATCH TOPICAL (11:14)
--- NOTE | 2021-01-09 13:04 | PN.HOSP_ITS ---
Documented by User: Sonu BOWMAN 01/09/21 13:09 Subjective Subjective Patient is a 30-year-old male comfortably resting in bed, alert and orient x3. Patient does not report any new symptoms overnight. Denies chest pain, shortness of breath, palpitations, hemoptysis, sputum production, fever, chills, N/V/D. Does not appear in acute distress Objective Data Objective Data Vital Signs: Vital Signs Temp Pulse Resp BP Pulse Ox 98 F 96 15 125/87 H 100 01/09/21 11:00 01/09/21 11:49 01/09/21 11:00 01/09/21 11:09 01/09/21 11:15 Oxygen Delivery Method Room Air Weight: 158 lb 4.67 oz Body Mass Index (BMI) 23.8 Intake & Output: Intake and Output for Last 24 Hours 01/07/21 01/08/21 01/09/21 23:59 23:59 23:59 Intake Total 3025 / 3025 1572.83 / 1572.83 640 / 640 Output Total 1300 / 1300 900 / 900 Balance 1725 / 1725 672.83 / 672.83 640 / 640 Lab / Micro Data Result Diagrams: 01/09/21 05:08 01/09/21 05:08 Labs: Laboratory Results - last 24 hr 01/09/21 05:08: WBC 8.3, RBC 3.42 L, Hgb 9.6 L, Hct 29.6 L, MCV 86.5, MCH 28.1, MCHC 32.4, RDW Std Deviation 45.1 H, RDW Coeff of Jefferson 14.1, Plt Count 316, MPV 9.1, Immature Gran % (Auto) 1.400 H, Neut % (Auto) 68.1, Lymph % (Auto) 22.3, [place] % (Auto) 7.2, Eos % (Auto) 0.8, Baso % (Auto) 0.2, Absolute Neuts (auto) 5.7, Absolute Lymphs (auto) 1.86, Nucleated RBC % 0 01/09/21 05:08: Sodium 136, Potassium 3.4 L, Chloride 103, Carbon Dioxide 26.0, Anion Gap 7, BUN 10, Creatinine 0.66 L, Estim Creat Clear Calc 149.03, Est GFR (MDRD) Af Amer 184, Est GFR (MDRD) Non-Af 152, BUN/Creatinine Ratio 15.2, Glucose 134 H, Calcium 8.1 L Micro: Microbiology 01/07/21 08:00 Blood Culture (Wb) - Right Wrist Blood Culture - Preliminary Staphylococcus aureus Gram positive organism 01/07/21 09:30 Blood Culture (Wb) - Anticubital Right Blood Culture - Preliminary Staphylococcus aureus Gram positive organism 01/06/21 09:16 Blood Culture (Wb) - Anticubital Right Blood Culture - Preliminary Meth. resistant Staph. aureus Gram positive organism 01/05/21 09:30 Blood Culture (Wb) - Anticubital Right Blood Culture - Final Staphylococcus aureus 01/04/21 05:44 Blood Culture (Wb) - Anticubital Right Blood Culture - Final Staphylococcus aureus 01/03/21 13:26 Blood Culture (Wb) - Anticubital Right Blood Culture - Final Staphylococcus aureus 01/02/21 17:40 Blood Culture (Wb) - Anticubital Left Blood Culture - Final Staphylococcus aureus 01/02/21 17:45 Blood Culture (Wb) - Right Forearm Bacteria Detection (PCR) - Final Meth. resistant Staph. aureus 01/02/21 17:45 Blood Culture (Wb) - Right Forearm Blood Culture - Final Meth. resistant Staph. aureus 01/02/21 17:55 Mucosa - Nasopharyngeal Respiratory Panel (PCR) - Final 01/02/21 16:18 Nasal Secretion SARS-CoV-2 Antigen (Rapid) - Final 01/02/21 16:18 Interface Orders Group A Streptococcus Rapid Screen - Final Streptococcus Group A Physical Exam Const alert, oriented x3 and no apparent distress HEENT head/scalp atraumatic and moist oral mucous membranes Head and Scalp: normocephalic Eyes PERRL, EOMs intact bilaterally and conjunctivae normal Neck no lymphadenopathy, supple and no JVD Resp normal respiratory effort, no retractions, no use of accessory muscles and clear to auscultation bilaterally Cardio regular rate, regular rhythm, no murmurs and no JVD GI normal to inspection, nondistended, normoactive bowel sounds, soft to palpation and non-tender Extremity normal to inspection, full ROM and no clubbing, cyanosis or edema Skin no rashes or lesions noted, no wounds, skin turgor normal and no jaundice Neuro CN's II-XII intact bilaterally Psych affect normal Assessment & Plan Assessment/Plan (1) Sepsis: (2) MRSA bacteremia: (3) Opiate withdrawal: (4) Acute lumbar back pain: QUALIFIERS: Back pain laterality: midline Sciatica presence: unspecified whether sciatica present Qualified Code(s): M54.50 - Low back pain, unspecified PLAN: Day 7 Discharge planning: Current plan is for patient to discharge home when medically ready. 1) MRSA Bactremia secondary to IVDU Patient does not meet criteria for sepsis as his vital signs are stabilized and his CBC does not demonstrate a white count. Blood cultures demonstrate Staphylococcus species. TTE or MARY CARMEN did not demonstrate any valvular vegetations and EF was normal at 65%. MRI did not demonstrate any signs for infection. HIV is negative although patient does have a patient of hepatitis C. ID is following and place the patient on daptomycin and ceftaroline. Repeat blood cultures will be obtained for clearance of infection. Patient will likely need long-term antibiotics, case management following for scheduling infusion versus placement at [facility]. 2) Septic pulmonary emboli Chest CT on admission demonstrated, continue Toradol for pain management. 3) acute lumbar pain Pain management as above, MRI negative for any signs of acute infection. 4) hyponatremia Resolved, sodium currently 135, continue to monitor BMP. a.m. 5) strep pharyngitis Rapid strep was positive on admission. Plan is antibiotics as above. 6) normocytic anemia Unclear of chronicity of anemia as there are no baseline data to compare to. Hemoglobin is stable. Continue to monitor. 7) acute opiate withdrawal 180 consult obtained, continue buprenorphine and supportive medications. 8) hypokalemia Potassium currently 3.4, replaced orally. Continue to monitor BMP. DVT prophylaxis - Lovenox Patient seen by Sonu Cohen PA-C, under the supervision of Dr. Swan. Documented by User: Dr. Rony Allison, 01/09/21 20:00 Objective Data Lab / Micro Data Result Diagrams: 01/09/21 05:08 01/09/21 05:08 Charges/Coding Addendum Addendum: Patient was seen and examined independently of Sonu Cohen, he has no complaints of any fevers or chills to this examiner today. Patient knows he adrienne l have to follow-up with outpatient IV antibiotic treatment. On examination he appeared in good health and spirits. Vital signs as documented. Skin warm and dry and without overt rashes. Neck without JVD, neck was supple, trachea midline, thyroid was normal. Lungs clear bilaterally, normal air movement was noted. Heart exam notable for regular rhythm, normal sounds and absence of murmurs, rubs or gallops. Abdomen unremarkable and without evidence of organomegaly, masses, or abdominal aortic enlargement. Bowel sounds are present, abdomen is not distended. Extremities nonedematous, no cyanosis was noted, no clubbing was noted. Neuro: Cranial nerves II through XII are grossly intact, no focal motor deficits were noted, sensation to light touch and pinprick intact, motor exam 5/5 throughout. Psych: Patient is alert and oriented x3, he does not appear anxious or depressed, he does not appear agitated. Patient's antibiotics were changed to daptomycin and ceftaroline by infectious diseases. I have reviewed Sonu Cohen's progress note including his medical assessment and plan of care and endorse it. Visit Charges Inpatient E&M: 92841 Subs Hosp L2
[2021-01-09] MEDS: Potassium Chloride Oral Tablet 20 MEQ 40 MEQ PO (15:28)
[2021-01-09] MEDS: traZODone 100 MG Tablet PO (23:42)
[2021-01-10] VITALS (10 sets, daily range): BP systolic 114–125; BP diastolic 68–77; PULSE 81–104; RESP 14–18; TEMP 36.7–36.9; O2SAT 97–100
[2021-01-10] MEDS: Ketorolac 30 MG/ML Syringe 15 MG IV ×3 (05:37→20:19)
[2021-01-10 05:55] LABS: Absolute Lymphocyte Count 2.01 X10^3/uL (0.83-4.51); Absolute Neutrophil Count 6.4 X10^3/uL (2.0-7.7); Basophil# 0.02 X10^3/uL; Basophil% 0.2 % (0-1); Eosinophil# 0.05 X10^3/uL; Eosinophils% 0.5 % (0-5); Hematocrit 29.8 % (40-54); Hemoglobin 9.5 g/dL (13.0-16.5); Lymphocyte # 2.01 X10^3/ul (0.83-4.51); Lymphocyte % 21.7 % (19-41); Mean Corp Hgb Conc 31.9 g/dL (32-36); Mean Corpuscular Hgb 27.6 pg (27.0-32.0); Mean Corpuscular Volume 86.6 fL (80-94); Mean Platelet Vol. 8.6 fl (6.2-12.0); Monocyte# 0.68 X10^3/uL; Monocyte% 7.3 % (0-10); NRBC Flagged by Analyzer 0 % (0-5); Neutrophil % 69.1 % (47-70); Platelet Count 332 K/mm3 (150-450); RBC Distribution Width CV 14.2 % (11.6-14.6); RBC Distribution Width SD 45.2 fl (35.1-43.9); Red Blood Count 3.44 M/mm3 (4.6-6.2); White Blood Count 9.3 K/mm3 (4.4-11.0)
[2021-01-10 06:34] LABS: Anion Gap 7 (5-15); BUN 10 mg/dL (7-18); BUN/Creat Ratio 13.2 RATIO (10-20); Calcium,Total 8.3 mg/dL (8.5-10.1); Chloride 104 mmol/L (98-107); Creatinine, Serum 0.76 mg/dL (0.70-1.30); EST Glomerular Filtration Rate 129 mL/min (>60); Est Glom Filt Rate - Afr Amer 156 mL/min (>60); Estimated Creatinine Clearance 129.42 ml/min; Glucose 92 mg/dL (74-106); Potassium 4.1 mmol/L (3.5-5.1); Sodium Level 137 mmol/L (136-145)
[2021-01-10] MEDS: Famotidine 20 MG Tablet PO ×2 (09:27→21:45)
[2021-01-10] MEDS: Metoprolol Tartrate 25 MG Tablet PO ×2 (09:27→21:45)
[2021-01-10] MEDS: Enoxaparin 40 MG/0.4 ML Syringe SC (09:27)
[2021-01-10] MEDS: Lidocaine 5% Patch 2 PATCH TOPICAL (09:28)
--- NOTE | 2021-01-10 13:07 | PCM.PN.HOSP ---
Documented by User: Sonu BOWMAN 01/10/21 13:16 Subjective Subjective Patient is a 30-year-old male comfortably lying in bed, alert and orient x3. Patient denies development of any new symptoms overnight and does not appear in acute distress. Denies chest pain, shortness of breath, palpitations, hemoptysis, sputum production, fever, chills, N/V/D. Objective Data Objective Data Vital Signs: Vital Signs Temp Pulse Resp BP Pulse Ox 98.4 F 81 14 125/77 H 97 01/10/21 09:15 01/10/21 09:27 01/10/21 09:15 01/10/21 09:27 01/10/21 09:15 Oxygen Delivery Method Room Air Weight: 156 lb 4.924 oz Body Mass Index (BMI) 23.8 Intake & Output: Intake and Output for Last 24 Hours 01/08/21 01/09/21 01/10/21 23:59 23:59 23:59 Intake Total 1572.83 / 1572.83 2232 / 2232 1180 / 1180 Output Total 900 / 900 700 / 700 Balance 672.83 / 672.83 2232 / 2232 480 / 480 Lab / Micro Data Result Diagrams: 01/10/21 05:25 01/10/21 05:25 Labs: Laboratory Results - last 24 hr 01/10/21 05:25: WBC 9.3, RBC 3.44 L, Hgb 9.5 L, Hct 29.8 L, MCV 86.6, MCH 27.6, MCHC 31.9 L, RDW Std Deviation 45.2 H, RDW Coeff of Jefferson 14.2, Plt Count 332, MPV 8.6, Immature Gran % (Auto) 1.200 H, Neut % (Auto) 69.1, Lymph % (Auto) 21.7, [place] % (Auto) 7.3, Eos % (Auto) 0.5, Baso % (Auto) 0.2, Absolute Neuts (auto) 6.4, Absolute Lymphs (auto) 2.01, Nucleated RBC % 0 01/10/21 05:25: Sodium 137, Potassium 4.1, Chloride 104, Carbon Dioxide 26.0, Anion Gap 7, BUN 10, Creatinine 0.76, Estim Creat Clear Calc 129.42, Est GFR (MDRD) Af Amer 156, Est GFR (MDRD) Non-Af 129, BUN/Creatinine Ratio 13.2, Glucose 92, Calcium 8.3 L Micro: Microbiology 01/06/21 09:16 Blood Culture (Wb) - Anticubital Right Blood Culture - Preliminary Meth. resistant Staph. aureus Gram Positive Cocci 01/07/21 08:00 Blood Culture (Wb) - Right Wrist Blood Culture - Preliminary Staphylococcus aureus Gram Positive Cocci 01/07/21 09:30 Blood Culture (Wb) - Anticubital Right Blood Culture - Preliminary Staphylococcus aureus Gram Positive Cocci 01/08/21 13:00 Blood Culture (Wb) - Anticubital Right Blood Culture - Preliminary 01/09/21 11:18 Blood Culture (Wb) - Anticubital Right Blood Culture - Preliminary 01/05/21 09:30 Blood Culture (Wb) - Anticubital Right Blood Culture - Final Staphylococcus aureus 01/04/21 05:44 Blood Culture (Wb) - Anticubital Right Blood Culture - Final Staphylococcus aureus 01/03/21 13:26 Blood Culture (Wb) - Anticubital Right Blood Culture - Final Staphylococcus aureus 01/02/21 17:40 Blood Culture (Wb) - Anticubital Left Blood Culture - Final Staphylococcus aureus 01/02/21 17:45 Blood Culture (Wb) - Right Forearm Bacteria Detection (PCR) - Final Meth. resistant Staph. aureus 01/02/21 17:45 Blood Culture (Wb) - Right Forearm Blood Culture - Final Meth. resistant Staph. aureus 01/02/21 17:55 Mucosa - Nasopharyngeal Respiratory Panel (PCR) - Final 01/02/21 16:18 Nasal Secretion SARS-CoV-2 Antigen (Rapid) - Final 01/02/21 16:18 Interface Orders Group A Streptococcus Rapid Screen - Final Streptococcus Group A Physical Exam Const alert, oriented x3 and no apparent distress HEENT head/scalp atraumatic and moist oral mucous membranes Head and Scalp: normocephalic Eyes PERRL, EOMs intact bilaterally and conjunctivae normal Neck no lymphadenopathy, supple and no JVD Resp normal respiratory effort, no retractions, no use of accessory muscles and clear to auscultation bilaterally Cardio regular rate, regular rhythm, no murmurs and no JVD GI normal to inspection, nondistended, normoactive bowel sounds, soft to palpation and non-tender Extremity normal to inspection, full ROM and no clubbing, cyanosis or edema Skin no rashes or lesions noted, no wounds and skin turgor normal Neuro CN's II-XII intact bilaterally Psych affect normal Assessment & Plan Assessment/Plan (1) Sepsis: (2) MRSA bacteremia: (3) Acute lumbar back pain: QUALIFIERS: Back pain laterality: midline Sciatica presence: unspecified whether sciatica present Qualified Code(s): M54.50 - Low back pain, unspecified (4) Opiate withdrawal: PLAN: Day 8 Discharge planning: To be determined, see below. 1) MRSA Bactremia secondary to IVDU Patient does not meet criteria for sepsis as his vital signs are stabilized and his CBC does not demonstrate a white count. Blood cultures drawn on 01/07 demonstrate Staphylococcus species. TTE or MARY CARMEN did not demonstrate any valvular vegetations and EF was normal at 65%. MRI did not demonstrate any signs for infection. HIV is negative although patient does have a patient of hepatitis C. ID is following and place the patient on daptomycin and ceftaroline. Repeat blood cultures will be obtained for clearance of infection. Patient will likely need long-term antibiotics, case management following for scheduling infusion versus placement at [facility]. 2) Septic pulmonary emboli Chest CT on admission demonstrated, continue Toradol for pain management. 3) acute lumbar pain Pain management as above, MRI negative for any signs of acute infection. 4) hyponatremia Resolved, sodium currently 135, continue to monitor BMP. a.m. 5) strep pharyngitis Rapid strep was positive on admission. Plan is antibiotics as above. 6) normocytic anemia Unclear of chronicity of anemia as there are no baseline data to compare to. Hemoglobin is stable. Continue to monitor. 7) acute opiate withdrawal 180 consult obtained, continue buprenorphine and supportive medications. 8) hypokalemia Potassium currently 3.4, replaced orally. Continue to monitor BMP. DVT prophylaxis - Lovenox Patient seen by Sonu Cohen PA-C, under the supervision of Dr. Swan. Documented by User: Dr. Rony Allison, DO 01/10/21 19:50 Objective Data Lab / Micro Data Result Diagrams: 01/10/21 05:25 01/10/21 05:25 Charges/Coding Addendum Addendum: Patient was seen and examined today independently of Sonu Cohen, I talked briefly with infectious diseases about his care. Patient is still positive on his blood cultures, infectious diseases feels that he needs aggressive antibiotic treatment and feels that the patient probably has endocarditis. On examination he appeared in good health and spirits. Vital signs as documented. Skin warm and dry and without overt rashes. Neck without JVD, neck was supple, trachea midline, thyroid was normal. Lungs clear bilaterally, normal air movement was noted. Heart exam notable for regular rhythm, normal sounds and absence of murmurs, rubs or gallops. Abdomen unremarkable and without evidence of organomegaly, masses, or abdominal aortic enlargement. Bowel sounds are present, abdomen is not distended. Extremities nonedematous, no cyanosis was noted, no clubbing was noted. Neuro: Cranial nerves II through XII are grossly intact, no focal motor deficits were noted, sensation to light touch and pinprick intact, motor exam 5/5 throughout. Psych: Patient is alert and oriented x3, he does not appear anxious or depressed, he does not appear agitated. I have reviewed Sonu Cohen's progress note including his medical assessment and plan of care and endorse it. Visit Charges Inpatient E&M: 22422 Subs Hosp L2
--- NOTE | 2021-01-10 13:54 | PCM.PN.ID ---
Physical Exam Narrative Feeling better, still R chest pain. No new joint pain or aches, no fever Const alert General Appearance: cooperative Resp normal air movement and clear to auscultation bilaterally Cardio regular rate and regular rhythm GI normal to inspection, nondistended, normoactive bowel sounds Skin no rashes or lesions noted ID ID: Route of nutrition/ use of supplements: [] Nutritional Intake: [] IV Site: [] Garnica Catheter: [] Assessment & Plan Assessment/Plan (1) Pulmonary embolism, septic: (2) MRSA bacteremia: PLAN: MRSA bacteremia per PCR with suspected endocarditis, due to IVDU. Repeat bcx today. MARY CARMEN no veg. Still bcx rapidly turning (+). Cont dapto/ceftaroline. lumbar pain and BLE weakness - MRI neg for osteo/discitis/epidural abscess. Sx improved. suspected covid - sx for past week, unvaccinated. Cont isolation. PCR and Ag neg, neg Abs. Out of iso. IVDU/hep C - no prior treatment for hep C. HIV neg here. Will follow, d/w primary team (3) Acute lumbar back pain: QUALIFIERS: Back pain laterality: midline Sciatica presence: unspecified whether sciatica present Qualified Code(s): M54.50 - Low back pain, unspecified (4) IV drug user: (5) Hepatitis C: (6) Suspected COVID-19 virus infection:
[2021-01-10] MEDS: 0.9% Saline Lock 10 ML Syringe IV (20:19)
[2021-01-10] MEDS: traZODone 100 MG Tablet PO (23:55)
[2021-01-11] VITALS (11 sets, daily range): BP systolic 112–122; BP diastolic 65–74; PULSE 69–88; RESP 16–18; TEMP 36.6–37.3; O2SAT 96–99
[2021-01-11] MEDS: Ketorolac 30 MG/ML Syringe 15 MG IV (03:22)
[2021-01-11] MEDS: 0.9% Saline Lock 10 ML Syringe IV ×4 (03:22→13:49)
[2021-01-11 06:00] LABS: Absolute Lymphocyte Count 2.13 X10^3/uL (0.83-4.51); Absolute Neutrophil Count 6.5 X10^3/uL (2.0-7.7); Basophil# 0.02 X10^3/uL; Basophil% 0.2 % (0-1); Eosinophil# 0.06 X10^3/uL; Eosinophils% 0.6 % (0-5); Hematocrit 30.6 % (40-54); Lymphocyte # 2.13 X10^3/ul (0.83-4.51); Lymphocyte % 22.9 % (19-41); Mean Corp Hgb Conc 32.7 g/dL (32-36); Mean Corpuscular Hgb 27.9 pg (27.0-32.0); Mean Corpuscular Volume 85.5 fL (80-94); Mean Platelet Vol. 8.6 fl (6.2-12.0); Monocyte# 0.56 X10^3/uL; NRBC Flagged by Analyzer 0 % (0-5); Neutrophil # 6.47 X10^3/uL (2.7-7.7); Neutrophil % 69.5 % (47-70); Platelet Count 400 K/mm3 (150-450); RBC Distribution Width CV 13.8 % (11.6-14.6); RBC Distribution Width SD 43.4 fl (35.1-43.9); Red Blood Count 3.58 M/mm3 (4.6-6.2); White Blood Count 9.3 K/mm3 (4.4-11.0)
[2021-01-11 06:31] LABS: Anion Gap 7 (5-15); BUN 13 mg/dL (7-18); BUN/Creat Ratio 19.5 RATIO (10-20); Calcium,Total 8.5 mg/dL (8.5-10.1); Chloride 105 mmol/L (98-107); Creatinine, Serum 0.67 mg/dL (0.70-1.30); EST Glomerular Filtration Rate 150 mL/min (>60); Est Glom Filt Rate - Afr Amer 181 mL/min (>60); Glucose 95 mg/dL (74-106); Potassium 4.1 mmol/L (3.5-5.1); Sodium Level 137 mmol/L (136-145)
[2021-01-11] MEDS: Enoxaparin 40 MG/0.4 ML Syringe SC (08:35)
[2021-01-11] MEDS: Famotidine 20 MG Tablet PO ×2 (08:35→21:03)
[2021-01-11] MEDS: Metoprolol Tartrate 25 MG Tablet PO ×2 (08:35→21:02)
[2021-01-11] MEDS: Lidocaine 5% Patch 2 PATCH TOPICAL (08:35)
[2021-01-11] MEDS: Ibuprofen 400 MG Tablet PO ×2 (10:44→17:48)
[2021-01-11] MEDS: Methocarbamol 750 MG Tablet 1500 MG PO ×2 (11:15→17:49)
--- NOTE | 2021-01-11 11:31 | PCM.PN.ID ---
ID ID: Route of nutrition/ use of supplements: [] Nutritional Intake: [] IV Site: [] Garnica Catheter: [] Patient is alert and responsive complaining of pain mainly in his chest area. No fever. Most recent blood cultures are pending. Remains on ceftaroline plus daptomycin. Lungs are some scattered rhonchi heart exam S1-S2 abdomen soft nontender. Neurological exam is nonfocal. MRSA bacteremia with concern of pulmonary septic emboli. History of active IV drug use. Continue current parenteral antibiotic therapy and closely follow his repeat blood cultures.
--- NOTE | 2021-01-11 11:43 | PCM.PN.HOSP ---
Documented by User: Fariba Alejandre NP-C 01/11/21 11:51 Subjective Subjective Patient seen and examined. Patient sitting in bed no distress noted. Patient expresses frustration at continued hospitalization. Discussed with patient need for continued IV antibiotic therapy especially in the environment of continued positive blood cultures. Patient voiced understanding and need for continued antibiotic therapy. Objective Data Objective Data Vital Signs: Vital Signs Temp Pulse Resp BP Pulse Ox 98.2 F 80 18 122/74 H 98 01/11/21 08:33 01/11/21 08:35 01/11/21 08:33 01/11/21 08:33 01/11/21 08:33 Oxygen Delivery Method Room Air Weight: 150 lb 9.211 oz Body Mass Index (BMI) 23.8 Intake & Output: Intake and Output for Last 24 Hours 01/09/21 01/10/21 01/11/21 23:59 23:59 23:59 Intake Total 2232 / 2232 1362 / 1602 480 / 480 Output Total 700 / 700 Balance 2232 / 2232 662 / 902 480 / 480 Lab / Micro Data Result Diagrams: 01/11/21 05:28 01/11/21 05:21 Labs: Laboratory Results - last 24 hr 01/11/21 05:21: Sodium 137, Potassium 4.1, Chloride 105, Carbon Dioxide 25.0, Anion Gap 7, BUN 13, Creatinine 0.67 L, Estim Creat Clear Calc 146.80, Est GFR (MDRD) Af Amer 181, Est GFR (MDRD) Non-Af 150, BUN/Creatinine Ratio 19.5, Glucose 95, Calcium 8.5 01/11/21 05:28: WBC 9.3, RBC 3.58 L, Hgb 10.0 L, Hct 30.6 L, MCV 85.5, MCH 27.9, MCHC 32.7, RDW Std Deviation 43.4, RDW Coeff of Jefferson 13.8, Plt Count 400, MPV 8.6, Immature Gran % (Auto) 0.800, Neut % (Auto) 69.5, Lymph % (Auto) 22.9, [place] % (Auto) 6.0, Eos % (Auto) 0.6, Baso % (Auto) 0.2, Absolute Neuts (auto) 6.5, Absolute Lymphs (auto) 2.13, Nucleated RBC % 0 Micro: Microbiology 01/09/21 11:18 Blood Culture (Wb) - Anticubital Right Blood Culture - Preliminary Staphylococcus aureus 01/08/21 13:00 Blood Culture (Wb) - Anticubital Right Blood Culture - Preliminary Staphylococcus aureus 01/07/21 09:30 Blood Culture (Wb) - Anticubital Right Blood Culture - Final Staphylococcus aureus Coag Negative Staph 01/07/21 08:00 Blood Culture (Wb) - Right Wrist Blood Culture - Final Staphylococcus aureus Coag Negative Staph 01/06/21 09:16 Blood Culture (Wb) - Anticubital Right Blood Culture - Final Meth. resistant Staph. aureus Staphylococcus hominis hominis 01/05/21 09:30 Blood Culture (Wb) - Anticubital Right Blood Culture - Final Staphylococcus aureus 01/04/21 05:44 Blood Culture (Wb) - Anticubital Right Blood Culture - Final Staphylococcus aureus 01/03/21 13:26 Blood Culture (Wb) - Anticubital Right Blood Culture - Final Staphylococcus aureus 01/02/21 17:40 Blood Culture (Wb) - Anticubital Left Blood Culture - Final Staphylococcus aureus 01/02/21 17:45 Blood Culture (Wb) - Right Forearm Bacteria Detection (PCR) - Final Meth. resistant Staph. aureus 01/02/21 17:45 Blood Culture (Wb) - Right Forearm Blood Culture - Final Meth. resistant Staph. aureus 01/02/21 17:55 Mucosa - Nasopharyngeal Respiratory Panel (PCR) - Final 01/02/21 16:18 Nasal Secretion SARS-CoV-2 Antigen (Rapid) - Final 01/02/21 16:18 Interface Orders Group A Streptococcus Rapid Screen - Final Streptococcus Group A Physical Exam Const alert, oriented x3 and no apparent distress HEENT head/scalp atraumatic Head and Scalp: normocephalic Eyes conjunctivae normal and no scleral icterus Neck full ROM and supple General: trachea midline Resp normal respiratory effort and clear to auscultation bilaterally Effort and Inspection: able to speak in complete sentences and symmetric chest movement Auscultation: diminished lung sounds Cardio regular rate, regular rhythm, S1 normal heart sound and S2 normal heart sound GI normal to inspection, nondistended, normoactive bowel sounds, soft to palpation and non-tender Extremity normal to inspection, full ROM and no clubbing, cyanosis or edema Peripheral Pulses: Yes pulses 2+ throughout Skin no rashes or lesions noted, no wounds and skin turgor normal Neuro oriented x3, moves all extremities, no focal motor deficits and no sensory deficits noted Sensorium / Orientation: awake and alert Psych affect normal Assessment & Plan Assessment/Plan (1) MRSA bacteremia: (2) Acute lumbar back pain: QUALIFIERS: Back pain laterality: midline Sciatica presence: unspecified whether sciatica present Qualified Code(s): M54.50 - Low back pain, unspecified PLAN: Patient is a 30-year-old male who originally came in for opiate withdrawal. Patient was noted to have positive blood cultures and was diagnosed with MRSA bacteremia. Patient continues to have positive blood cultures despite treatment with vancomycin, ceftaroline, and daptomycin. Daily blood cultures ordered 1. MRSA bacteremia secondary to IV drug use -Blood cultures completed daily continue to demonstrate Staphylococcus species -TTE and MARY CARMEN negative for valvular vegetations, EF 65% -ID following -Patient will most likely need long-term antibiotics, case management following 2. Septic pulmonary emboli -Acetaminophen and ibuprofen ordered for pain management 3. Lumbar pain -MRI negative -Lidocaine patches applied -Acetaminophen and ibuprofen ordered for pain management 4. Normocytic anemia -Stable -CBC daily 5. Acute opiate withdrawal -Patient to follow with one eighty outpatient upon discharge DVT prophylaxis-subcu Lovenox This patient was seen by Fariba Alejandre, SHEAR GRINDER OPERATOR HELPER-C under the supervision of Dr. Allison. Documented by User: Dr. Rony Allison, 01/11/21 19:06 Objective Data Lab / Micro Data Result Diagrams: 01/11/21 05:28 01/11/21 05:21 Charges/Coding Addendum Addendum: Patient was seen and examined today independently of Jenna Alejandre, he states that he has finished his detox here and he is in his personal belongings and he is using his personal cell phone. I talked at length with infectious diseases about antibiotic coverage, it appears that at this time the patient is still positive on his blood cultures and he needs to continue his present antibiotic coverage with 2 antibiotics. On examination he appeared in good health and spirits. Vital signs as documented. Skin warm and dry and without overt rashes. Neck without JVD, neck was supple, trachea midline, thyroid was normal. Lungs clear bilaterally, normal air movement was noted. Heart exam notable for regular rhythm, normal sounds and absence of murmurs, rubs or gallops. Abdomen unremarkable and without evidence of organomegaly, masses, or abdominal aortic enlargement. Bowel sounds are present, abdomen is not distended. Extremities nonedematous, no cyanosis was noted, no clubbing was noted. Neuro: Cranial nerves II through XII are grossly intact, no focal motor deficits were noted, sensation to light touch and pinprick intact, motor exam 5/5 throughout. Psych: Patient is alert and oriented x3, he does not appear anxious or depressed, he does not appear agitated. I have reviewed Jenna Alejandre's progress note including her medical assessment and plan of care and endorse it. Visit Charges Inpatient E&M: 72283 Subs Hosp L2
[2021-01-11] MEDS: Gabapentin 300 MG Capsule PO ×2 (13:57→22:13)
[2021-01-11] MEDS: traZODone 100 MG Tablet PO (22:08)
[2021-01-12] VITALS (12 sets, daily range): BP systolic 107–126; BP diastolic 58–82; PULSE 80–97; RESP 15–18; TEMP 36.8–36.9; O2SAT 97–99
[2021-01-12] MEDS: 0.9% Saline Lock 10 ML Syringe IV ×3 (06:17→21:20)
[2021-01-12] MEDS: Methocarbamol 750 MG Tablet 1500 MG PO ×2 (06:18→17:55)
[2021-01-12 06:53] LABS: Absolute Neutrophil Count 5.8 X10^3/uL (2.0-7.7); Basophil# 0.03 X10^3/uL; Basophil% 0.3 % (0-1); Eosinophil# 0.06 X10^3/uL; Eosinophils% 0.7 % (0-5); Hematocrit 31.7 % (40-54); Hemoglobin 10.4 g/dL (13.0-16.5); Lymphocyte % 26.9 % (19-41); Mean Corp Hgb Conc 32.8 g/dL (32-36); Mean Corpuscular Hgb 28.4 pg (27.0-32.0); Mean Corpuscular Volume 86.6 fL (80-94); Mean Platelet Vol. 8.3 fl (6.2-12.0); Monocyte# 0.51 X10^3/uL; Monocyte% 5.7 % (0-10); NRBC Flagged by Analyzer 0 % (0-5); Neutrophil # 5.83 X10^3/uL (2.7-7.7); Neutrophil % 65.5 % (47-70); Platelet Count 433 K/mm3 (150-450); RBC Distribution Width CV 13.9 % (11.6-14.6); RBC Distribution Width SD 44.4 fl (35.1-43.9); Red Blood Count 3.66 M/mm3 (4.6-6.2); White Blood Count 8.9 K/mm3 (4.4-11.0)
[2021-01-12 07:24] LABS: Anion Gap 6 (5-15); BUN 13 mg/dL (7-18); BUN/Creat Ratio 17.5 RATIO (10-20); Calcium,Total 8.8 mg/dL (8.5-10.1); Chloride 106 mmol/L (98-107); Creatinine, Serum 0.74 mg/dL (0.70-1.30); EST Glomerular Filtration Rate 132 mL/min (>60); Est Glom Filt Rate - Afr Amer 160 mL/min (>60); Estimated Creatinine Clearance 132.92 ml/min; Glucose 93 mg/dL (74-106); Potassium 4.2 mmol/L (3.5-5.1); Sodium Level 139 mmol/L (136-145)
[2021-01-12] MEDS: Ibuprofen 400 MG Tablet PO ×2 (08:30→17:55)
[2021-01-12] MEDS: Metoprolol Tartrate 25 MG Tablet PO ×2 (08:30→21:19)
[2021-01-12] MEDS: Lidocaine 5% Patch 2 PATCH TOPICAL (08:30)
[2021-01-12] MEDS: Famotidine 20 MG Tablet PO ×2 (08:31→21:19)
[2021-01-12] MEDS: Enoxaparin 40 MG/0.4 ML Syringe SC (08:31)
--- NOTE | 2021-01-12 12:25 | PN.HOSP_ITS ---
Documented by User: JESIKA Salas 01/12/21 12:28 Subjective Subjective Patient seen and examined. Patient continues to have positive blood cultures, obtained daily. Patient states that he is feeling improved but understands the need to have negative blood cultures prior to discharge. Objective Data Objective Data Vital Signs: Vital Signs Temp Pulse Resp BP Pulse Ox 98.2 F 86 16 114/72 97 01/12/21 08:22 01/12/21 10:37 01/12/21 08:22 01/12/21 08:22 01/12/21 08:22 Oxygen Delivery Method Room Air Weight: 147 lb 7.828 oz Body Mass Index (BMI) 23.8 Intake & Output: Intake and Output for Last 24 Hours 01/10/21 01/11/21 01/12/21 23:59 23:59 23:59 Intake Total 1362 / 1602 1562 / 1562 240 / 240 Output Total 700 / 700 500 / 1850 1350 / 1350 Balance 662 / 902 1062 / -288 -1110 / -1110 Lab / Micro Data Result Diagrams: 01/12/21 06:15 01/12/21 06:15 Labs: Laboratory Results - last 24 hr 01/12/21 06:15: WBC 8.9, RBC 3.66 L, Hgb 10.4 L, Hct 31.7 L, MCV 86.6, MCH 28.4, MCHC 32.8, RDW Std Deviation 44.4 H, RDW Coeff of Jefferson 13.9, Plt Count 433, MPV 8.3, Immature Gran % (Auto) 0.900, Neut % (Auto) 65.5, Lymph % (Auto) 26.9, [place] % (Auto) 5.7, Eos % (Auto) 0.7, Baso % (Auto) 0.3, Absolute Neuts (auto) 5.8, Absolute Lymphs (auto) 2.40, Nucleated RBC % 0 01/12/21 06:15: Sodium 139, Potassium 4.2, Chloride 106, Carbon Dioxide 27.0, Anion Gap 6, BUN 13, Creatinine 0.74, Estim Creat Clear Calc 132.92, Est GFR (MDRD) Af Amer 160, Est GFR (MDRD) Non-Af 132, BUN/Creatinine Ratio 17.5, Glucose 93, Calcium 8.8 Micro: Microbiology 01/08/21 13:00 Blood Culture (Wb) - Anticubital Right Blood Culture - Final Staphylococcus aureus 01/09/21 11:18 Blood Culture (Wb) - Anticubital Right Blood Culture - Final Meth. resistant Staph. aureus 01/07/21 09:30 Blood Culture (Wb) - Anticubital Right Blood Culture - Final Staphylococcus aureus Coag Negative Staph 01/07/21 08:00 Blood Culture (Wb) - Right Wrist Blood Culture - Final Staphylococcus aureus Coag Negative Staph 01/06/21 09:16 Blood Culture (Wb) - Anticubital Right Blood Culture - Final Meth. resistant Staph. aureus Staphylococcus hominis hominis 01/05/21 09:30 Blood Culture (Wb) - Anticubital Right Blood Culture - Final Staphylococcus aureus 01/04/21 05:44 Blood Culture (Wb) - Anticubital Right Blood Culture - Final Staphylococcus aureus 01/03/21 13:26 Blood Culture (Wb) - Anticubital Right Blood Culture - Final Staphylococcus aureus 01/02/21 17:40 Blood Culture (Wb) - Anticubital Left Blood Culture - Final Staphylococcus aureus 01/02/21 17:45 Blood Culture (Wb) - Right Forearm Bacteria Detection (PCR) - Final Meth. resistant Staph. aureus 01/02/21 17:45 Blood Culture (Wb) - Right Forearm Blood Culture - Final Meth. resistant Staph. aureus 01/02/21 17:55 Mucosa - Nasopharyngeal Respiratory Panel (PCR) - Final 01/02/21 16:18 Nasal Secretion SARS-CoV-2 Antigen (Rapid) - Final 01/02/21 16:18 Interface Orders Group A Streptococcus Rapid Screen - Final Streptococcus Group A Physical Exam Const alert, oriented x3 and no apparent distress Exam Limitations: no limitations HEENT head/scalp atraumatic and moist oral mucous membranes Eyes conjunctivae normal and no scleral icterus Eyes Narrative: No scleral icterus Neck full ROM and supple General: trachea midline Resp normal respiratory effort and clear to auscultation bilaterally Resp Narrative: Effort and Inspection: able to speak in complete sentences and symmetric chest movement Auscultation: diminished lung sounds Cardio regular rate, regular rhythm, S1 normal heart sound and S2 normal heart sound GI normal to inspection, nondistended, normoactive bowel sounds, soft to palpation, non-tender and non-distended Extremity normal to inspection, full ROM and no clubbing, cyanosis or edema Skin no rashes or lesions noted, no wounds and skin turgor normal Neuro oriented x3, moves all extremities, no focal motor deficits and no sensory deficits noted Sensorium / Orientation: awake and alert Speech: speech normal Psych affect normal Assessment & Plan Assessment/Plan (1) MRSA bacteremia: (2) Acute lumbar back pain: QUALIFIERS: Back pain laterality: midline Sciatica presence: unspecified whether sciatica present Qualified Code(s): M54.50 - Low back pain, unspecified PLAN: Patient is a 30-year-old male who originally came in for opiate withdrawal. Patient was noted to have positive blood cultures and was diagnosed with MRSA bacteremia. Patient continues to have positive blood cultures despite treatment with vancomycin, ceftaroline, and daptomycin. Daily blood cultures ordered 1. MRSA bacteremia secondary to IV drug use -Blood cultures completed daily continue to demonstrate Staphylococcus species -TTE and MARY CARMEN negative for valvular vegetations, EF 65% -ID following -Patient will most likely need long-term antibiotics, case management following 2. Septic pulmonary emboli -Acetaminophen and ibuprofen ordered for pain management 3. Lumbar pain -MRI negative -Lidocaine patches applied -Acetaminophen and ibuprofen ordered for pain management 4. Normocytic anemia -Stable -CBC daily 5. Acute opiate withdrawal -Patient to follow with one eighty outpatient upon discharge DVT prophylaxis-subcu Lovenox This patient was seen by Fariba Alejandre NP-C under the supervision of Dr. Allison. Documented by User: Dr. Rony Allison, 01/12/21 20:57 Objective Data Lab / Micro Data Result Diagrams: 01/12/21 06:15 01/12/21 06:15 Charges/Coding Addendum Addendum: Patient was seen and examined independently of Jenna Alejandre, he remains on IV antibiotics at this time, infectious diseases did not see the patient today. Patient's blood culture from 01/11/2021 and 01/10/21 is pending at this time. On examination he appeared in good health and spirits. Vital signs as documented. Skin warm and dry and without overt rashes. Neck without JVD, neck was supple, trachea midline, thyroid was normal. Lungs clear bilaterally, normal air movement was noted. Heart exam notable for regular rhythm, normal sounds and absence of murmurs, rubs or gallops. Abdomen unremarkable and without evidence of organomegaly, masses, or abdominal aortic enlargement. Bowel sounds are present, abdomen is not distended. Extremities nonedematous, no cyanosis was noted, no clubbing was noted. Neuro: Cranial nerves II through XII are grossly intact, no focal motor deficits were noted, sensation to light touch and pinprick intact, motor exam 5/5 throughout. Psych: Patient is alert and oriented x3, he does not appear anxious or depressed, he does not appear agitated. Patient's antibiotics will continue through the weekend, he was to be seen by infectious diseases next week, hopefully he can be discharged with once a day IV outpatient antibiotic dosing. I have reviewed Jenna Alejandre's progress note including her medical assessment and plan of care and endorse it Visit Charges Inpatient E&M: 61470 Subs Hosp L2
--- NOTE | 2021-01-12 12:57 | CASEMGMT ---
SW met with patient, introduced self and role at [facility]. SW explained to patient it may be difficult setting up outpatient IV's for him as one of the antibiotics is 4 times a day. SW asked him if we are unable to arrange anything as an outpatient would he be willing to go to a [facility] if that could be arranged. Patient said he is not going to a [facility]. He said he already said he would not go to a [facility] and that he is going home. DIANE and RN CM to continue to follow. Vannesa NATION
[2021-01-13] VITALS: PULSE 77
--- NOTE | 2021-01-13 01:56 | NURSING ---
This RN entered pt's room to silence IV pump. Pt states that he wants the papers to sign to leave AMA. Notified Dr. Dee, removed IV and heart monitor. Pt left with security at 0155am. RASHEEDA Michel
== END 2021-01-13 01:55 | disposition left against medical advice (07) | DRG 720 ==
LOC: ED 16:50 → MS3 18:05 → PCU 18:19
PROVIDERS: Hospitalist; Internal Medicine; Internal Medicine Infectious Disease; Nurse Practitioner Family; Physician Assistant; Admitting Provider Family Medicine; Emergency Provider Emergency Medicine; Visit Provider Internal Medicine
DX: A41.02 Sepsis due to Methicillin resistant Staphylococcus aureus (principal); I26.90 Septic pulmonary embolism without acute cor pulmonale; I33.0 Acute and subacute infective endocarditis; F11.23 Opioid dependence with withdrawal; D64.9 Anemia, unspecified; D69.6 Thrombocytopenia, unspecified; J02.0 Streptococcal pharyngitis; F17.210 Nicotine dependence, cigarettes, uncomplicated; M54.50 Low back pain, unspecified; B18.2 Chronic viral hepatitis C; E87.6 Hypokalemia; E87.1 Hypo-osmolality and hyponatremia; W18.30XA Fall on same level, unspecified, initial encounter; Y93.89 Activity, other specified; Y92.009 Unspecified place in unspecified non-institutional (private) residence as the place of occurrence of the external cause; Y99.8 Other external cause status
CPT/HCPCS: 36415; 71275; 72100; 72158; 80048; 80053; 80202; 80307; 81001; 82077; 83735; 85025; 86703; 86704; 86705; 86706; 86707; 86769; 86803; 87040; 87077; 87149; 87186; 87340; 87350; 87426; 87633; 87635; 87641; 87880; 93005; 93306; 93312; 93320; 93325; 94640; 99251; 99285; 99406; A9575; J0878; J7030; J7040; J7050; Q9967; U0005; A4216; G0463; J0712; J3490; U0003

== ENCOUNTER 2021-09-02 21:15 | Inpatient (IN) | payer MEDICAID, SELFPAY ==
[2021-09-02 21:16] VITALS: BP 138/86; PULSE 99; RESP 15; TEMP 36.8; O2SAT 100; BMI 26.7
[2021-09-02 22:16] VITALS: BP 134/78; PULSE 88; RESP 17; O2SAT 98
[2021-09-02 22:22] LABS: Absolute Neutrophil Count 4.6 X10^3/uL (2.0-7.7); Basophil# 0.01 X10^3/uL; Basophil% 0.1 % (0-1); Eosinophil# 0.13 X10^3/uL; Eosinophils% 1.7 % (0-5); Hematocrit 25.9 % (40-54); Mean Corp Hgb Conc 30.9 g/dL (32-36); Mean Corpuscular Volume 87.5 fL (80-94); Mean Platelet Vol. 8.5 fl (6.2-12.0); Monocyte# 0.96 X10^3/uL; Monocyte% 12.8 % (0-10); NRBC Flagged by Analyzer 0 % (0-5); Neutrophil # 4.58 X10^3/uL (2.7-7.7); Platelet Count 310 K/mm3 (150-450); RBC Distribution Width CV 12.9 % (11.6-14.6); RBC Distribution Width SD 41.1 fl (35.1-43.9); Red Blood Count 2.96 M/mm3 (4.6-6.2); White Blood Count 7.5 K/mm3 (4.4-11.0)
[2021-09-02 22:43] LABS: ALB/GLOB Ratio 0.8 RATIO (0.9-2.4); AST(SGOT) 29 U/L (15-37); Alanine Aminotransfer ALT/SGPT 61 U/L (16-61); Albumin, Serum 3.2 g/dL (3.2-5.0); Alkaline Phosphatase 92 U/L (45-117); Anion Gap 7 (5-15); BUN 14 mg/dL (7-18); BUN/Creat Ratio 13.3 RATIO (10-20); Calcium,Total 8.8 mg/dL (8.5-10.1); Chloride 105 mmol/L (98-107); Creatinine, Serum 1.05 mg/dL (0.70-1.30); EST Glomerular Filtration Rate 88 mL/min (>60); Est Glom Filt Rate - Afr Amer 107 mL/min (>60); Estimated Creatinine Clearance 93.67 ml/min; Globulin 3.8 g/dL (2.2-4.2); Glucose 89 mg/dL (74-106); Potassium 3.5 mmol/L (3.5-5.1); Sodium Level 141 mmol/L (136-145)
[2021-09-02 22:54] LABS: Alcohol, Blood (Medical)-Serum < 3.0 mg/dL
[2021-09-02 23:04] LABS: Amphetamine Urine VISTA POSITIVE (<1000 ng/mL); Barbiturate Urine VISTA NEGATIVE (< 200 ng/mL); Benzodiazepine Urine VISTA NEGATIVE (< 200 ng/mL); Cocaine Urine VISTA POSITIVE (< 300 ng/mL); Ecstacy Urine VISTA POSITIVE (< 500 ng/mL); Methadone Urine VISTA NEGATIVE (< 300 ng/mL); PCP Urine VISTA NEGATIVE (< 25 ng/mL); THC Urine VISTA POSITIVE (< 50 ng/mL); Vista UDS pH Range 5
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
[2021-09-03 00:15] VITALS: BP 124/69; PULSE 99; RESP 18; TEMP 36.7; O2SAT 98; O2SAT 99
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
[2021-09-03 01:19] VITALS: BMI 25.7
[2021-09-03 01:33] VITALS: BP 146/98; PULSE 98; RESP 20; TEMP 36.4; O2SAT 100
[2021-09-03 06:21] LABS: Ferritin 19 ng/mL (26-388); Iron 23 ug/dL (65-175); Iron Binding Capacity,Total 510 ug/dL (250-450); LDH 191 U/L (87-241); PERCENT IRON SATURATION 4.5 % (15.0-55.0)
[2021-09-03 07:48] LABS: Vitamin B12 561 pg/mL (211-911)
[2021-09-03 08:00] VITALS: BP 118/64; PULSE 76; RESP 16; TEMP 36.7; O2SAT 100
[2021-09-03 10:02] LABS: Hematocrit 25.8 % (40-54); Hemoglobin 8.6 g/dL (13.0-16.5); RET-HE 22.9 pg (30-35); Reticulocyte Count 3.74 % (0.5-1.5)
--- NOTE | 2021-09-03 10:05 | PN.HOSP_ITS ---
Subjective Subjective Patient seen and examined. He has no active complaints and had an uneventful night. Review of systems is otherwise negative. He has remained hemodynamically stable. He is on opiate withdrawal protocol. Objective Data Objective Data Vital Signs: Vital Signs Temp Pulse Resp BP Pulse Ox O2 Del Method 98.0 F 76 16 118/64 100 Room Air 09/03/21 08:00 09/03/21 08:00 09/03/21 08:00 09/03/21 08:00 09/03/21 08:00 09/03/21 09:00 Oxygen Delivery Method Room Air Weight: 159 lb Body Mass Index (BMI) 25.7 Lab / Micro Data Result Diagrams: 09/03/21 05:44 09/02/21 21:58 Labs: Laboratory Results - last 24 hr 09/02/21 21:58: WBC 7.5, RBC 2.96 L, Hgb 8.0 L, Hct 25.9 L, MCV 87.5, MCH 27.0, MCHC 30.9 L, RDW Std Deviation 41.1, RDW Coeff of Jefferson 12.9, Plt Count 310, MPV 8.5, Immature Gran % (Auto) 0.400, Neut % (Auto) 61.0, Lymph % (Auto) 24.0, [place] % (Auto) 12.8 H, Eos % (Auto) 1.7, Baso % (Auto) 0.1, Absolute Neuts (auto) 4.6, Absolute Lymphs (auto) 1.80, Nucleated RBC % 0 09/02/21 21:58: Sodium 141, Potassium 3.5, Chloride 105, Carbon Dioxide 29.0, Anion Gap 7, BUN 14, Creatinine 1.05, Estim Creat Clear Calc 93.67, Est GFR (MDRD) Af Amer 107, Est GFR (MDRD) Non-Af 88, BUN/Creatinine Ratio 13.3, Glucose 89, Calcium 8.8, Total Bilirubin 0.40, AST 29, ALT 61, Alkaline Phosphatase 92, Total Protein 7.0, Albumin 3.2, Globulin 3.8, Albumin/Globulin Ratio 0.8 L 09/02/21 21:58: Ethyl Alcohol < 3.0 09/02/21 21:58: Vitamin B12 561 09/02/21 21:58: Folate 17.40 09/02/21 22:35: Urine Opiates Screen NEGATIVE, Urine Methadone Screen NEGATIVE, Ur Barbiturates Screen NEGATIVE, Ur Phencyclidine Scrn NEGATIVE, Ur Amphetamines Screen POSITIVE H, MDMA (Ecstasy) Screen POSITIVE H, U Benzodiazepines Scrn NEGATIVE, Urine Cocaine Screen POSITIVE H, U Cannabinoids Screen POSITIVE H, Ur Drug Screen Comment 09/03/21 05:44: Hgb 8.6 L, Hct 25.8 L, Retic Count 3.74 H, Immature Retic Fraction 10.80, Retic Hgb Equivalent 22.9 L 09/03/21 05:44: Iron 23 L, TIBC 510 H, Iron Saturation 4.5 L, Ferritin 19 L, Lactate Dehydrogenase 191 Physical Exam Const alert, oriented x3 and no apparent distress HEENT head/scalp atraumatic and moist oral mucous membranes Mouth: oral and palatal mucosa normal Eyes PERRL, EOMs intact bilaterally and conjunctivae normal Neck no lymphadenopathy, supple and no JVD Resp normal respiratory effort, no retractions, no use of accessory muscles and clear to auscultation bilaterally Cardio regular rate, regular rhythm, S1 normal heart sound, S2 normal heart sound and no murmurs GI normal to inspection, nondistended, normoactive bowel sounds, soft to palpation, non-tender and non-distended Extremity normal to inspection, full ROM and no clubbing, cyanosis or edema Neuro oriented x3, CN's II-XII intact bilaterally, moves all extremities and no focal motor deficits Sensorium / Orientation: awake and alert Speech: speech normal Motor Exam: strength 5/5 throughout Psych affect normal Assessment & Plan Assessment/Plan (1) Opiate dependence: PLAN: Plan #Acute opioid withdrawal * on opioid withdrawal protocol with buprenorphine * monitor COWS score * uses fentanyl IV. * adjunctive meds for symptomatic relief * #Iron deficiency anemia * patient's hb is ~8, and iron panel shows low iron saturation with low elevated iron binding capacity * will place on oral iron supplement * check stool for occult blood * follow up with GI on outpatient basis for further workup * * #History of polysubstance abuse * also known to use marijuana and methamphetamine. * counseled to quit * #History of testicular cancer: s/p unilateral orchiectomy. To follow up with oncology on outpatient basis. #History of hepatitis C: treatment naive. Informed he would have to be clean for at least 6 months to get treatment. #History of bad aortic valve * He was apparently told at [facility] that he had a bad heart valve ~ 6 months ago, but was not a candidate for surgery due to increased risk of infection * to follow up at [facility]. * DVT prophylaxis: low risk. encourage to ambulate Charges/Coding Visit Charges Inpatient E&M: 11909 Subs Hosp L2
[2021-09-03] MEDS: Methocarbamol 750 MG Tablet 1500 MG PO (11:06)
[2021-09-03] MEDS: Ferrous Sulfate 325 MG Tablet PO ×2 (11:14→17:07)
[2021-09-03] MEDS: Dicyclomine 10 MG Capsule 20 MG PO (11:14)
[2021-09-03 11:45] VITALS: O2SAT 96
[2021-09-03 14:55] VITALS: BP 119/74; PULSE 80; RESP 16; TEMP 36.7; O2SAT 99
--- NOTE | 2021-09-03 15:52 | CASEMGMT ---
SW called Raúl, Power Lineman Technician and left her a message regarding patient's admission. Vannesa Winters COMMISSIONS SPECIALIST [employer]LECT[employer] UTILITY WORKER
[2021-09-03 19:41] VITALS: BP 125/79; PULSE 97; RESP 18; TEMP 37.1; O2SAT 100
[2021-09-03] MEDS: hydrOXYzine PAM 25 MG Capsule 50 MG PO (19:45)
[2021-09-03] MEDS: Buprenorphine HCl 2 MG TAB.SUBL SL (20:40)
[2021-09-03] MEDS: traZODone 100 MG Tablet PO (23:15)
[2021-09-04] MEDS: Buprenorphine HCl 2 MG TAB.SUBL SL ×3 (04:53→20:35)
[2021-09-04 04:54] VITALS: BP 125/74; PULSE 87; RESP 16; TEMP 36.8; O2SAT 98
[2021-09-04 05:42] LABS: Absolute Lymphocyte Count 1.97 X10^3/uL (0.83-4.51); Absolute Neutrophil Count 2.2 X10^3/uL (2.0-7.7); Basophil# 0.02 X10^3/uL; Basophil% 0.4 % (0-1); Eosinophil# 0.18 X10^3/uL; Eosinophils% 3.7 % (0-5); Hematocrit 29.5 % (40-54); Hemoglobin 9.1 g/dL (13.0-16.5); Lymphocyte # 1.97 X10^3/ul (0.83-4.51); Lymphocyte % 40.5 % (19-41); Mean Corp Hgb Conc 30.8 g/dL (32-36); Mean Corpuscular Hgb 26.8 pg (27.0-32.0); Mean Corpuscular Volume 86.8 fL (80-94); Monocyte# 0.52 X10^3/uL; Monocyte% 10.7 % (0-10); NRBC Flagged by Analyzer 0 % (0-5); Neutrophil # 2.16 X10^3/uL (2.7-7.7); Neutrophil % 44.5 % (47-70); Platelet Count 332 K/mm3 (150-450); RBC Distribution Width SD 41.1 fl (35.1-43.9); White Blood Count 4.9 K/mm3 (4.4-11.0)
[2021-09-04 07:21] VITALS: O2SAT 97
[2021-09-04 08:25] VITALS: BP 136/79; PULSE 78; RESP 16; TEMP 36.9; O2SAT 100
[2021-09-04] MEDS: Methocarbamol 750 MG Tablet 1500 MG PO (08:26)
[2021-09-04] MEDS: Ferrous Sulfate 325 MG Tablet PO ×3 (08:26→16:04)
--- NOTE | 2021-09-04 10:06 | PN.HOSP_ITS ---
Subjective Subjective Patient seen and examined. He has no complaints and had an uneventful night. He doesnt feel like he has any symptoms of withdrawal. He denies any cramps, fever, chills, dizziness, nausea, vomiting or diarrhea. Review of systems is otherwise negative. Objective Data Objective Data Vital Signs: Vital Signs Temp Pulse Resp BP Pulse Ox O2 Del Method 98.4 F 78 16 136/79 H 100 Room Air 09/04/21 08:25 09/04/21 08:25 09/04/21 08:25 09/04/21 08:25 09/04/21 08:09/04/21 08:25 Oxygen Delivery Method Room Air Weight: 159 lb Body Mass Index (BMI) 25.7 Intake & Output: Intake and Output for Last 24 Hours 09/02/21 09/03/21 09/04/21 23:59 23:59 23:59 Intake Total 600 / 1350 750 / 750 Balance 600 / 1350 750 / 750 Lab / Micro Data Result Diagrams: 09/04/21 04:25 09/02/21 21:58 Labs: Laboratory Results - last 24 hr 09/04/21 04:25: WBC 4.9, RBC 3.40 L, Hgb 9.1 L, Hct 29.5 L, MCV 86.8, MCH 26.8 L , MCHC 30.8 L, RDW Std Deviation 41.1, RDW Coeff of Jefferson 13.0, Plt Count 332, MPV 9.0, Immature Gran % (Auto) 0.200, Neut % (Auto) 44.5 L, Lymph % (Auto) 40.5, [place] % (Auto) 10.7 H, Eos % (Auto) 3.7, Baso % (Auto) 0.4, Absolute Neuts (auto) 2.2, Absolute Lymphs (auto) 1.97, Nucleated RBC % 0 Physical Exam Const alert, oriented x3 and no apparent distress HEENT head/scalp atraumatic and moist oral mucous membranes Head and Scalp: normocephalic Mouth: oral and palatal mucosa normal Eyes PERRL, EOMs intact bilaterally and conjunctivae normal Neck no lymphadenopathy, supple and no JVD Resp normal respiratory effort, no retractions, no use of accessory muscles and clear to auscultation bilaterally Cardio regular rate, regular rhythm, S1 normal heart sound, S2 normal heart sound and no murmurs GI normal to inspection, nondistended, normoactive bowel sounds, soft to palpation, non-tender and non-distended Extremity normal to inspection, full ROM and no clubbing, cyanosis or edema Neuro oriented x3, CN's II-XII intact bilaterally, moves all extremities and no focal motor deficits Sensorium / Orientation: awake and alert Speech: speech normal Motor Exam: strength 5/5 throughout Psych affect normal Assessment & Plan Assessment/Plan (1) Opiate dependence: PLAN: Plan #Acute opioid withdrawal * on opioid withdrawal protocol with buprenorphine * monitor COWS score * uses fentanyl IV. * adjunctive meds for symptomatic relief * #Iron deficiency anemia * iron panel shows low iron saturation with low elevated iron binding capacity * Hb is 9.1 today * on oral iron supplement * stool for occult blood pending * follow up with GI on outpatient basis for further workup * * #History of polysubstance abuse * also known to use marijuana and methamphetamine. * counseled to quit * #History of testicular cancer: s/p unilateral orchiectomy. To follow up with oncology on outpatient basis. #History of hepatitis C: treatment naive. Informed he would have to be clean for at least 6 months to get treatment. #History of bad aortic valve * He was apparently told at [facility] that he had a bad heart valve ~ 6 months ago, but was not a candidate for surgery due to increased risk of infection * to follow up at [facility]. * DVT prophylaxis: low risk. encourage to ambulate Charges/Coding Visit Charges Inpatient E&M: 32747 Subs Hosp L2
[2021-09-04] MEDS: Acetaminophen 325 MG Tablet 650 MG PO ×2 (13:50→20:34)
[2021-09-04 16:03] VITALS: BP 134/88; PULSE 91; RESP 16; TEMP 36.8; O2SAT 100
[2021-09-04 17:10] LABS: Haptoglobin 216 mg/dL (17-317)
[2021-09-04] MEDS: hydrOXYzine PAM 25 MG Capsule 50 MG PO (20:34)
[2021-09-04 20:46] VITALS: BP 136/83; PULSE 100; RESP 18; TEMP 36.6; O2SAT 100
--- NOTE | 2021-09-04 23:20 | NURSING ---
This RN was notified that pt wanted to leave ama. [place] paperwork taken to pt and discussed risks and benefits and pt signed. Pt pulled personal cell phone out from inside shorts and undergarments and stated that his girlfriend/sig other was leaving too and that they have been texting the entire time. This RN stated that he could get his belongings together and the admitting manager would be in to assist in getting his things out of the locked boxes and to let us know when he was ready to leave. Pt asked that we go talk to his sig other and that they are leaving together. This RN explained that she would notify her nurse but the pt would not be allowed to know because it could be detrimental to her recovery. He again stated that she had her phone. This RN contacted [facility] and notified them of the situation. Security was called to escort pt from the building.
--- NOTE | 2021-09-04 23:26 | PCM.HOSP.N ---
Hospitalist Note Patient left AMA 09/04/21 at ~ 11:20 pm.
--- NOTE | 2021-09-05 07:17 | DS.PCM_ITS ---
Providers Date of Admission: 09/02/21 Primary Care Physician: No Primary Care Phys Reason For Visit: DESIRE FOR DETOXIFICATION Diagnosis Discharge Diagnosis (1) Opiate dependence: Status: Acute Code(s): F11.20 - Opioid dependence, uncomplicated Plan #Acute opioid withdrawal * on opioid withdrawal protocol with buprenorphine * monitor COWS score * uses fentanyl IV. * adjunctive meds for symptomatic relief * #Iron deficiency anemia * iron panel shows low iron saturation with low elevated iron binding capacity * Hb is 9.1 today * on oral iron supplement * stool for occult blood pending * follow up with GI on outpatient basis for further workup * * #History of polysubstance abuse * also known to use marijuana and methamphetamine. * counseled to quit * #History of testicular cancer: s/p unilateral orchiectomy. To follow up with onc ology on outpatient basis. #History of hepatitis C: treatment naive. Informed he would have to be clean for at least 6 months to get treatment. #History of bad aortic valve * He was apparently told at [facility] that he had a bad heart valve ~ 6 months ago, but was not a candidate for surgery due to increased risk of infection * to follow up at [facility]. * DVT prophylaxis: low risk. encourage to ambulate Medications at Discharge Home Medications NK 09/02/21 Hospital Course Operations None Procedures None Summary of Care Provided Minutes Spent on Discharge: 45 Hospital Course: Patient is a 30-year-old male with an extensive past medical history as outlined was admitted through the ED on 09/03/2021 for opiate detox. He had been using fentanyl and methamphetamine for about a year and used both IV. His last use was about 3 to 4 hours prior to him coming in to the hospital. 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 About 6 months ago he states he was evaluated at a hospital in [place] and told he had a bad heart valve but not a candidate for surgery on account of increased risk of infection. He was admitted and managed for acute opioid withdrawal. He was started on opiate withdrawal protocol with buprenorphine. Patient tolerated the detox process for 2 days but decided to sign out AGAINST MEDICAL ADVICE on 09/04/2021. Patient was seen in the morning of the day he signed out AMA. He had no complaints. With tolerating the detox process well. At that time he was amenable to staying to complete the detox process but subsequently changed his mind and signed out AGAINST MEDICAL ADVICE. Physical Exam Const alert, oriented x3 and no apparent distress General Appearance: cooperative and comfortable Orientation / Consciousness: awake Exam Limitations: no limitations HEENT normocephalic, head/scalp atraumatic, hearing grossly normal bilaterally and moist oral mucous membranes Mouth: oral and palatal mucosa normal Eyes PERRL, EOMs intact bilaterally and conjunctivae normal Neck no lymphadenopathy, supple and no JVD Resp normal respiratory effort, no retractions, no use of accessory muscles and clear to auscultation bilaterally Cardio regular rate, regular rhythm, S1 normal heart sound, S2 normal heart sound and no murmurs GI normal to inspection, nondistended, normoactive bowel sounds, soft to palpation, non-tender and non-distended Extremity normal to inspection, full ROM and no clubbing, cyanosis or edema Skin no rashes or lesions noted Neuro oriented x3, CN's II-XII intact bilaterally, moves all extremities and no focal motor deficits Sensorium / Orientation: awake and alert Speech: speech normal Motor Exam: strength 5/5 throughout Psych affect normal Weight / BMI Weight Weight: 159 lb Body Mass Index (BMI) 25.7 ABG / Lab / Microbiology Data Result Diagrams: 09/04/21 04:25 09/02/21 21:58 Laboratory: Laboratory Results - last 24 hr 09/03/21 05:44: Haptoglobin 216 D/C Instructions Discharge Diet: Low fat / Low cholesterol Discharge Activity: Return to Normal Activity Meaningful Use Info Meaningful Use Diagnoses (Choose all that apply): None applicable Discharge Plan Admission Admit Date/Time: 09/02/21 23:41 Primary Reason for Your Visit: acute opioid withdrawal Attending Provider: Germania Thomas Primary Care Provider: Care Physician,No Primary Consulting Providers: Domo Zimmer Discharge Orders/Prescriptions Prescriptions: No Action NK Referrals / Follow Up: Care Physician,No Primary [Primary Care Provider] - Disposition Disposition (needs filled in before D/C Order can be placed): Against Medical Advice Charges/Coding Visit Charges Inpatient E&M: 97468 Disch Hosp
== END 2021-09-04 23:20 | disposition left against medical advice (07) | DRG 770 ==
LOC: ED 09-03 00:01 → PCU 09-03 02:13
PROVIDERS: Admitting Provider Hospitalist; Emergency Provider Emergency Medicine; Visit Provider Student in an Organized Health Care Education/Training Program
DX: F11.23 Opioid dependence with withdrawal (principal); D50.9 Iron deficiency anemia, unspecified; F14.99 Cocaine use, unspecified with unspecified cocaine-induced disorder; F17.210 Nicotine dependence, cigarettes, uncomplicated; F15.90 Other stimulant use, unspecified, uncomplicated; I35.8 Other nonrheumatic aortic valve disorders; Z85.47 Personal history of malignant neoplasm of testis; Z86.19 Personal history of other infectious and parasitic diseases; Z86.14 Personal history of Methicillin resistant Staphylococcus aureus infection; S21.102D Unspecified open wound of left front wall of thorax without penetration into thoracic cavity, subsequent encounter; Y33.XXXD Other specified events, undetermined intent, subsequent encounter
CPT/HCPCS: 36415; 80053; 80307; 82077; 82607; 82728; 82746; 83010; 83540; 83550; 83615; 85014; 85018; 85025; 85045; 99284; 99406

== ENCOUNTER 2021-12-30 14:13 | Inpatient (IN) | payer MEDICAID, SELFPAY ==
[2021-12-30 14:14] VITALS: BP 131/93; PULSE 101; RESP 18; TEMP 36; O2SAT 100; BMI 24.2
--- NOTE | 2021-12-30 15:14 | EDS_ITS ---
HPI History of Present Illness Chief Complaint: Substance Abuse Informant: patient Narrative Narrative: Here requesting detox from IV fentanyl use. Been using daily for 2 years. He injects up to 2 g a day reporting $100 worth. Last use was 3 days ago. Today chills weakness nausea, no vomiting or diarrhea. He states he ran out of money therefore has not taken in 3 days. History of what sounds like endocarditis from MRSA bacteremia over a year ago. He was not a surgical candidate. He denies fevers. Denies back pain. Denies chest pains. History of methamphetamine use from records. Denies alcohol. Prior similar symptoms: Yes PFSH PFSH Medical History Anemia Hepatitis C IV drug user Opiate dependence Polysubstance abuse Polysubstance abuse Testicular cancer Tobacco use Home Medications melatonin 10 mg tablet 30 mg PO DAILY sleep 12/30/21 [History Last Taken 12/29/21 22:00] trazodone 100 mg tablet 100 mg PO QHS insomnia 12/30/21 [History Last Taken 12/29/21 22:00] Allergy/AdvReac Type Severity Reaction Status Date / Time latex AdvReac Itching Verified 12/30/21 14:15 Family History Mother Heart disease Father Heart disease Surgical History History of surgery on arm Hx of unilateral orchiectomy Social History household members: significant other Smoking Status: Current every day smoker tobacco type: cigarettes alcohol intake: current alcohol intake frequency: holidays/special occasions only substance use type: crack/cocaine, heroin, opiates, IV drugs and other details: Currently 1/2 gm daily heroin and fentanyl. ROS ROS ED Constitutional Constitutional ED: Reports chills; Denies fever(s) or sweats Eyes Eyes: Denies change in vision ENT ENT ED: Denies dysphagia or sore throat Cardiovascular Cardiovascular: Denies chest pain, leg edema, palpitations or racing heartbeat Respiratory/Chest Respiratory/Chest: Denies cough, dyspnea or dyspnea on exertion Gastrointestinal Gastrointestinal: Reports nausea; Denies abdominal pain, diarrhea or vomiting Genitourinary Genitourinary ED: Denies dysuria, hematuria or urinary frequency Musculoskeletal Musculoskeletal: Denies back pain, extremity pain or neck pain Integumentary Denies rash or wounds Neurologic Neurologic: Reports weakness; Denies headache(s) or paresthesias EXAM Physical Exam Const Vital Signs: 12/30/21 14:14 12/30/21 15:42 Temperature 96.8 F L 97.8 F Temperature Source Temporal Temporal Pulse Rate 101 H 89 Respiratory Rate 18 16 Blood Pressure 131/93 H 135/80 H Blood Pressure Mean 105 98 Pulse Ox 100 100 Oxygen Delivery Method Room Air Room Air Positive well nourished and well developed General Appearance ED: well developed and NAD HEENT Reports moist mucous membranes normocephalic and atraumatic Eyes PERRL, EOMs intact bilaterally and conjunctivae normal General Eye ED: Yes normal appearance of both eyes Neck no lymphadenopathy and supple General: Negative for tenderness Chest Wall Chest: Negative for tenderness Resp normal respiratory effort and normal air movement Effort and Inspection: symmetric chest movement; Negative for respiratory distress Cardio regular rate, regular rhythm and no murmurs Peripheral Pulses: pulses 2+ throughout GI normal to inspection, nondistended, normoactive bowel sounds and non-tender Palpation: Negative for guarding or rebound tenderness present Back/Spine no CVA tenderness and no thoracic nor lumbar tenderness Extremity normal to inspection General Extremety ED: Negative for edema or tenderness General Extremity: Negative for edema Neuro oriented x3 and no sensory deficits noted Sensorium / Orientation: awake and alert Skin Skin Narrative: Bilateral antecubital and left forearm puncture wounds. There is no erythema or drainage. Bilateral dorsal hands with abrasions right greater than left, no drainage, nontender. MDM MDM MDM Narrative Medical decision making narrative: Patient afebrile here for fentanyl detox. The last use 3 days ago. Nausea symptoms. He was ordered for Zofran. He had abrasion dorsal hands for which she reported hitting a wall. No deformities. I did order labs with tox with alcohol. I discussed with hospitalist, Dr. Allison for admission to the medical floor. Lab Data Labs: Laboratory Results - last 24 hr 12/30/21 12/30/21 12/30/21 15:45 15:45 15:45 WBC 9.1 RBC 4.80 Hgb 11.3 L Hct 36.1 L MCV 75.2 L MCH 23.5 L MCHC 31.3 L RDW Std Deviation 46.5 H RDW Coeff of Jefferson 17.2 H Plt Count 313 MPV 9.1 Immature Gran % (Auto) 0.300 Neut % (Auto) 79.1 H Lymph % (Auto) 13.2 L [place] % (Auto) 7.1 Eos % (Auto) 0.2 Baso % (Auto) 0.1 Absolute Neuts (auto) 7.2 Absolute Lymphs (auto) 1.20 Nucleated RBC % 0 Sodium 139 Potassium 3.2 L Chloride 106 Carbon Dioxide 24.0 Anion Gap 9 BUN 14 Creatinine 0.90 Estim Creat Clear Calc 108.30 Est GFR (MDRD) Af Amer 128 Est GFR (MDRD) Non-Af 106 BUN/Creatinine Ratio 15.6 Glucose 117 H Calcium 9.2 Total Bilirubin 0.40 AST 16 ALT 38 Alkaline Phosphatase 86 Total Protein 7.7 Albumin 3.4 Globulin 4.3 H Albumin/Globulin Ratio 0.8 L Ethyl Alcohol < 3.0 Discharge Plan Dx/Rx/DC Orders Clinical Impression: Opiate dependence, History of intravenous drug abuse, Nausea, History of anemia Disposition Disposition: Acute Care Hospital [facility] Discharge Date/Time: 12/30/21 17:03
[2021-12-30] MEDS: Ondansetron ODT 4 MG Tablet PO (15:28)
--- NOTE | 2021-12-30 15:33 | PCM.HP.STD ---
HPI - General General Date of Service: 12/30/21 Chief Complaint: Opiate detox HPI Narrative LUCÍA CASSIDY, is a 31 M who presents to the emergency room at [facility] desiring services for opiate detox. Patient injects fentanyl, he is done this for a number of years, last time he was here was in August of this year and he checked out AMA after staying for a few days. Patient states he has not had any fentanyl for 3 days, he states he went to [facility] yesterday because he felt bad and they did not keep him in the hospital, he states that [facility] has no detox program. Patient has medical history of chronic anemia and a history of valvular heart disease according to his medical record, patient takes no outpatient medications. Patient denies any alcohol use. At the time of this dictation, patient's labs including his urine tox screen is pending. I told the patient more than likely the addiction oncology social work person was going to recommend inpatient detox after he is discharged from the hospital here. Additional note: Patient told the nursing staff in the ER that he came here because his girlfriend is in the hospital here for detox and he can talk with her and he thought he would be able to talk with her if he came into the hospital. Patient was told by nursing staff that he would not be able to make contact with her while he is hospitalized here for detox services. I reiterated this when I talked to the patient. PFSH Medical History Anemia Hepatitis C IV drug user Opiate dependence Polysubstance abuse Polysubstance abuse Testicular cancer Tobacco use Home Medications NK 09/02/21 [History Last Taken Unknown] Allergy/AdvReac Type Severity Reaction Status Date / Time latex AdvReac Itching Verified 12/30/21 14:15 Family History Mother Heart disease Father Heart disease Surgical History History of surgery on arm Hx of unilateral orchiectomy Social History household members: significant other Smoking Status: Current every day smoker tobacco type: cigarettes alcohol intake: current alcohol intake frequency: holidays/special occasions only substance use type: crack/cocaine, heroin, opiates, IV drugs and other details: Currently 1/2 gm daily heroin and fentanyl. ROS Constitutional Constitutional: Reports chills and malaise; Denies fever(s) or night sweats Eyes Eyes: Denies blurry vision, change in eye color, change in vision or discharge from eye(s) ENT HEENT: Denies abnormal hearing, dysphagia, epistaxis, headache(s) or hearing loss Cardiovascular Cardiovascular: Denies chest pain, claudication, dyspnea on exertion, edema, lightheadedness or palpitations Respiratory/Chest Respiratory/Chest: Denies cough, dyspnea, excessive phlegm production, hemoptysis, productive cough, shortness of breath at rest or shortness of breath with exertion Gastrointestinal Gastrointestinal: Denies abdominal pain, coffee ground emesis, constipation, diarrhea or dyspepsia Genitourinary Genitourinary: Denies burning urination, difficulty urinating, dysuria, hematuria or nocturia Musculoskeletal Musculoskeletal: Denies arthralgias, back pain, joint pain or joint stiffness Neurologic Neurologic: Denies abnormal gait, abnormal speech, confusion, dizziness or focal weakness Psychiatric Psychiatric: Denies anxiety Endocrine Endocrinology: Denies cold intolerance, excessive sweating, heat intolerance or polydipsia Hematologic/Lymphatic Hematologic/Lymphatic: Denies easy bleeding, easy bruising or lymphadenopathy Allergic/Immunologic Allergic/Immunologic: Denies hives, eczemia or asthma Vital Signs Vital Signs Vital Signs: 12/30/21 14:14 Temperature 96.8 F L Temperature Source Temporal Pulse Rate 101 H Respiratory Rate 18 Blood Pressure 131/93 H Blood Pressure Mean 105 Pulse Ox 100 Oxygen Delivery Method Room Air Weight Weight: 68.039 kg Body Mass Index (BMI) 24.2 Physical Exam Const alert, oriented x3, no apparent distress and average body habitus Constitutional Narrative: Patient appears older than his stated age, he is alert and appropriate, patient does not appear anxious or nervous. General Appearance: cooperative, well kempt and well developed Orientation / Consciousness: awake, oriented to person, oriented to place and oriented to time HEENT normocephalic, head/scalp atraumatic, hearing grossly normal bilaterally and moist oral mucous membranes Eyes PERRL, EOMs intact bilaterally and conjunctivae normal Neck supple, no JVD, thyroid normal and no carotid bruits General: trachea midline Resp normal respiratory effort, no retractions, no use of accessory muscles and clear to auscultation bilaterally Auscultation: Negative for rales, rhonchi or wheezes Cardio regular rate, regular rhythm, S1 normal heart sound, S2 normal heart sound, no murmurs, no rub and no gallops GI normal to inspection, nondistended, normoactive bowel sounds, soft to palpation, non-tender and non-distended Extremity no clubbing, cyanosis or edema Skin Skin Narrative: Patient has some raised areas on the underside of his right and left forearm-these areas are approximately 1 to 2 cm in diameter, they are nonreddened and nontender. Neuro oriented x3, CN's II-XII intact bilaterally, moves all extremities, no focal motor deficits and no sensory deficits noted Sensorium / Orientation: awake, alert, oriented to person, oriented to place and oriented to time Speech: speech normal Psych affect normal Assessment & Plan Assessment/Plan (1) Opiate dependence: PLAN: Plan 1. Acute opiate withdrawal-patient will be admitted to [place] [address], orders were entered using the opiate detox order set, patient will be seen by addiction oncology social work tomorrow #2 chronic opiate addiction-makes care, management, recovery, and prognosis complicated #3 superficial abscesses on patient's arms-possibly secondary to chemical abscesses versus bacterial abscesses, these do not appear to be significant and they are not large. I have chosen not to put the patient on any antibiotics at this time #4 chronic anemia-patient has a history of anemia dating back to last year, patient had an iron level drawn and August of this year which was low, at the time of this dictation, we are awaiting patient's labs to return. I will reorder an iron level when the patient is admitted to the hospital. #5 history of aortic valve disease-patient is vague about this, it was documented at his last admission in August of this year that the patient had aortic valvular disease and that he was told he would need a valve replacement but he was not performed due to the fact that he was using IV narcotics. On examination today, I was not able to detect any murmurs, rubs, or ectopy. Charges/Coding Visit Charges Inpatient E&M: 78506 Init Hosp L3
--- NOTE | 2021-12-30 15:38 | ED.RN ---
PT OBSERVED HIDING CELL PHONE IN UNDERWEAR, WHEN CONFRONTED PT INITIALLY DENIED BUT THEN STATED I NEED TO KEEP UP WITH THE OUTSIDE. PT ADMITS HE KNOW RULES ABOUT KEEPING CELL PHONE DURING PROGRAM. CELL PHONE PLACED WITH OTHER BELONGINGS.
[2021-12-30 15:42] VITALS: BP 135/80; PULSE 89; RESP 16; TEMP 36.6; O2SAT 100
--- NOTE | 2021-12-30 15:47 | ED.RN ---
PT UNABLE TO URINATE, HOSPITALIST AWARE.
[2021-12-30 15:56] LABS: Absolute Neutrophil Count 7.2 X10^3/uL (2.0-7.7); Basophil# 0.01 X10^3/uL; Basophil% 0.1 % (0-1); Eosinophil# 0.02 X10^3/uL; Eosinophils% 0.2 % (0-5); Hematocrit 36.1 % (40-54); Hemoglobin 11.3 g/dL (13.0-16.5); Lymphocyte % 13.2 % (19-41); Mean Corp Hgb Conc 31.3 g/dL (32-36); Mean Corpuscular Hgb 23.5 pg (27.0-32.0); Mean Corpuscular Volume 75.2 fL (80-94); Mean Platelet Vol. 9.1 fl (6.2-12.0); Monocyte# 0.64 X10^3/uL; Monocyte% 7.1 % (0-10); NRBC Flagged by Analyzer 0 % (0-5); Neutrophil # 7.16 X10^3/uL (2.7-7.7); Neutrophil % 79.1 % (47-70); Platelet Count 313 K/mm3 (150-450); RBC Distribution Width CV 17.2 % (11.6-14.6); RBC Distribution Width SD 46.5 fl (35.1-43.9); White Blood Count 9.1 K/mm3 (4.4-11.0)
[2021-12-30 16:08] LABS: Alcohol, Blood (Medical)-Serum < 3.0 mg/dL
[2021-12-30 16:11] LABS: ALB/GLOB Ratio 0.8 RATIO (0.9-2.4); AST(SGOT) 16 U/L (15-37); Alanine Aminotransfer ALT/SGPT 38 U/L (16-61); Albumin, Serum 3.4 g/dL (3.2-5.0); Alkaline Phosphatase 86 U/L (45-117); Anion Gap 9 (5-15); BUN 14 mg/dL (7-18); BUN/Creat Ratio 15.6 RATIO (10-20); Calcium,Total 9.2 mg/dL (8.5-10.1); Chloride 106 mmol/L (98-107); EST Glomerular Filtration Rate 106 mL/min (>60); Est Glom Filt Rate - Afr Amer 128 mL/min (>60); Globulin 4.3 g/dL (2.2-4.2); Glucose 117 mg/dL (74-106); Potassium 3.2 mmol/L (3.5-5.1); Protein, Total 7.7 g/dL (6.4-8.2); Sodium Level 139 mmol/L (136-145)
[2021-12-30 16:30] VITALS: BMI 26.3
[2021-12-30] MEDS: Potassium Chloride Oral Tablet 20 MEQ 40 MEQ PO (17:46)
[2021-12-30] MEDS: Buprenorphine HCl 2 MG TAB.SUBL 4 MG SL (17:46)
[2021-12-30] MEDS: Dicyclomine 10 MG Capsule 20 MG PO (17:48)
[2021-12-30] MEDS: Methocarbamol 750 MG Tablet 1500 MG PO (17:48)
[2021-12-30] MEDS: cloNIDine HCl 0.1 MG Tablet PO (17:48)
[2021-12-30 19:00] VITALS: BP 139/88; PULSE 111; RESP 18; TEMP 36.6; O2SAT 100
[2021-12-30] MEDS: traZODone 100 MG Tablet PO (22:14)
[2021-12-30 22:36] VITALS: BP 130/62; PULSE 83; RESP 16; TEMP 37.3; O2SAT 98
[2021-12-31] MEDS: Buprenorphine HCl 2 MG TAB.SUBL 4 MG SL ×2 (01:17→09:09)
[2021-12-31 04:36] VITALS: BP 133/84; PULSE 89; RESP 16; TEMP 37.2; O2SAT 98
[2021-12-31 06:49] LABS: Anion Gap 7 (5-15); BUN 10 mg/dL (7-18); BUN/Creat Ratio 13.2 RATIO (10-20); Calcium,Total 8.9 mg/dL (8.5-10.1); Chloride 109 mmol/L (98-107); Creatinine, Serum 0.76 mg/dL (0.70-1.30); EST Glomerular Filtration Rate 129 mL/min (>60); Est Glom Filt Rate - Afr Amer 156 mL/min (>60); Estimated Creatinine Clearance 128.25 ml/min; Glucose 104 mg/dL (74-106); Iron 23 ug/dL (65-175); Iron Binding Capacity,Total 349 ug/dL (250-450); PERCENT IRON SATURATION 6.6 % (15.0-55.0); Sodium Level 140 mmol/L (136-145)
--- NOTE | 2021-12-31 07:36 | PN.HOSP_ITS ---
Objective Data Objective Data Vital Signs: Vital Signs Temp Pulse Resp BP Pulse Ox O2 Del Method 99.0 F 89 16 133/84 H 98 Room Air 12/31/21 04:36 12/31/21 04:36 12/31/21 04:36 12/31/21 04:36 12/31/21 04:36 12/31/21 04:36 Oxygen Delivery Method Room Air Weight: 73.936 kg Body Mass Index (BMI) 26.3 Intake & Output: Intake and Output for Last 24 Hours 12/29/21 12/30/21 12/31/21 23:59 23:59 23:59 Intake Total 400 / 400 Balance 400 / 400 Lab / Micro Data Result Diagrams: 12/30/21 15:45 12/31/21 05:35 Labs: Laboratory Results - last 24 hr 12/30/21 15:45: WBC 9.1, RBC 4.80, Hgb 11.3 L, Hct 36.1 L, MCV 75.2 L, MCH 23.5 L, MCHC 31.3 L, RDW Std Deviation 46.5 H, RDW Coeff of [place] 17.2 H, Plt Count 313, MPV 9.1, Immature Gran % (Auto) 0.300, Neut % (Auto) 79.1 H, Lymph % (Auto) 13.2 L, [place] % (Auto) 7.1, Eos % (Auto) 0.2, Baso % (Auto) 0.1, Absolute Neuts (auto) 7.2, Absolute Lymphs (auto) 1.20, Nucleated RBC % 0 12/30/21 15:45: Sodium 139, Potassium 3.2 L, Chloride 106, Carbon Dioxide 24.0, Anion Gap 9, BUN 14, Creatinine 0.90, Estim Creat Clear Calc 108.30, Est GFR (MDRD) Af Amer 128, Est GFR (MDRD) Non-Af 106, BUN/Creatinine Ratio 15.6, Glucose 117 H, Calcium 9.2, Total Bilirubin 0.40, AST 16, ALT 38, Alkaline Phosphatase 86, Total Protein 7.7, Albumin 3.4, Globulin 4.3 H, Albumin/Globulin Ratio 0.8 L 12/30/21 15:45: Ethyl Alcohol < 3.0 12/31/21 05:35: Sodium 140, Potassium 3.0 L, Chloride 109 H, Carbon Dioxide 24.0, Anion Gap 7, BUN 10, Creatinine 0.76, Estim Creat Clear Calc 128.25, Est GFR (MDRD) Af Amer 156, Est GFR (MDRD) Non-Af 129, BUN/Creatinine Ratio 13.2, Glucose 104, Calcium 8.9, Iron 23 L, TIBC 349, Iron Saturation 6.6 L
[2021-12-31 09:02] VITALS: BP 127/80; PULSE 80; RESP 18; TEMP 36.8; O2SAT 99
[2021-12-31] MEDS: Ibuprofen 600 MG Tablet PO (09:10)
[2021-12-31] MEDS: hydrOXYzine PAM 25 MG Capsule 50 MG PO (09:10)
[2021-12-31] MEDS: Gabapentin 300 MG Capsule PO (09:11)
[2021-12-31 09:58] LABS: Amphetamine Urine VISTA POSITIVE (<1000 ng/mL); Barbiturate Urine VISTA NEGATIVE (< 200 ng/mL); Benzodiazepine Urine VISTA NEGATIVE (< 200 ng/mL); Cocaine Urine VISTA NEGATIVE (< 300 ng/mL); Ecstacy Urine VISTA NEGATIVE (< 500 ng/mL); Methadone Urine VISTA NEGATIVE (< 300 ng/mL); PCP Urine VISTA NEGATIVE (< 25 ng/mL); THC Urine VISTA POSITIVE (< 50 ng/mL); Vista UDS pH Range 6
[2021-12-31] MEDS: Potassium Chloride Oral Tablet 20 MEQ 60 MEQ PO (11:20)
--- NOTE | 2021-12-31 11:47 | ADDICTION ---
This press writer met with PT to conduct ASAM, MSE, AUDIT, DUDIT assessments and to plan for d/c. PT A+Ox4 and participated actively. All assessments completed and placed in PT's chart. PT plans to f/u with [facility] in [place] for follow-up in-patient treatment services. [facility] will provide transportation post d/c from [facility] at or around noon today.
--- NOTE | 2021-12-31 11:53 | DCINST_ITS ---
Discharge Instructions Diet Discharge Diet: No restrictions Activity Discharge Activity: Return to Normal Activity Follow Up Care Test Results: Test results from this visit will be discussed in further detail at your follow- up appointment, if applicable. Discharge Plan Admission Admit Date/Time: 12/30/21 15:50 Primary Reason for Your Visit: Acute opioid withdrawal Attending Provider: Mirlande Maria Primary Care Provider: Care Physician,No Primary Consulting Providers: Rony Allison Instructions Additional Instructions / Restrictions: Follow-up with your outpatient drug rehab program as scheduled. Discharge Orders/Prescriptions Prescriptions: Continued melatonin 10 mg Tablet 30 mg PO DAILY trazodone 100 mg Tablet 100 mg PO QHS Referrals / Follow Up: Care Physician,No Primary [Primary Care Provider] - Disposition Disposition (needs filled in before D/C Order can be placed): Home, Self Care
--- NOTE | 2021-12-31 11:55 | DS.PCM_ITS ---
Providers Date of Admission: 12/30/21 Date of Discharge: 12/31/21 Primary Care Physician: No Primary Care Phys Reason For Visit: OPIATE DEPENDENCE, HX IVDA Diagnosis Discharge Diagnosis (1) Opiate dependence: Status: Acute Code(s): F11.20 - Opioid dependence, uncomplicated Medications at Discharge Home Medications melatonin 10 mg tablet 30 mg PO DAILY sleep 12/30/21 trazodone 100 mg tablet 100 mg PO QHS insomnia 12/30/21 Hospital Course Operations None Procedures None Summary of Care Provided Minutes Spent on Discharge: 25 Hospital Course: 31-year-old male with past medical history of opioid abuse, patient injects f entanyl, who comes in asking for medical stabilization. Patient was previously admitted in this hospital in August, he signed out AMA. He presented requesting for detox. He had not used fentanyl in 3 days. Patient was admitted to the [facility] floor and started on opiate withdrawal protocol. There were no acute issues during this hospital stay. He was seen by odd job worker. Patient was discharged to [facility] in [place] for inpatient treatment services. Physical Exam Narrative Physical exam: General: Alert, Oriented x3, Cooperative, HEENT: Atraumatic Oral: Moist Mucosa Neck: Supple Lungs: Clear to auscultation Cardiovascular: HS I+II, regular, no murmurs Abdomen: Bowel Sounds Present, Soft, Non Tender Extremities: No edema Skin: No rashes, No breakdown Neurological: Grossly intact Psych/Mental Status: Appropriate Weight / BMI Weight Weight: 73.936 kg Body Mass Index (BMI) 26.3 ABG / Lab / Microbiology Data Result Diagrams: 12/30/21 15:45 12/31/21 05:35 Laboratory: Laboratory Results - last 24 hr 12/30/21 15:45: WBC 9.1, RBC 4.80, Hgb 11.3 L, Hct 36.1 L, MCV 75.2 L, MCH 23.5 L, MCHC 31.3 L, RDW Std Deviation 46.5 H, RDW Coeff of [place] 17.2 H, Plt Count 313, MPV 9.1, Immature Gran % (Auto) 0.300, Neut % (Auto) 79.1 H, Lymph % (Auto) 13.2 L, [place] % (Auto) 7.1, Eos % (Auto) 0.2, Baso % (Auto) 0.1, Absolute Neuts (auto) 7.2, Absolute Lymphs (auto) 1.20, Nucleated RBC % 0 12/30/21 15:45: Sodium 139, Potassium 3.2 L, Chloride 106, Carbon Dioxide 24.0, Anion Gap 9, BUN 14, Creatinine 0.90, Estim Creat Clear Calc 108.30, Est GFR (MDRD) Af Amer 128, Est GFR (MDRD) Non-Af 106, BUN/Creatinine Ratio 15.6, Glucose 117 H, Calcium 9.2, Total Bilirubin 0.40, AST 16, ALT 38, Alkaline Phosphatase 86, Total Protein 7.7, Albumin 3.4, Globulin 4.3 H, Albumin/Globulin Ratio 0.8 L 12/30/21 15:45: Ethyl Alcohol < 3.0 12/31/21 05:35: Sodium 140, Potassium 3.0 L, Chloride 109 H, Carbon Dioxide 24.0, Anion Gap 7, BUN 10, Creatinine 0.76, Estim Creat Clear Calc 128.25, Est GFR (MDRD) Af Amer 156, Est GFR (MDRD) Non-Af 129, BUN/Creatinine Ratio 13.2, Glucose 104, Calcium 8.9, Iron 23 L, TIBC 349, Iron Saturation 6.6 L 12/31/21 09:20: Urine Opiates Screen NEGATIVE, Urine Methadone Screen NEGATIVE, Ur Barbiturates Screen NEGATIVE, Ur Phencyclidine Scrn NEGATIVE, Ur Amphetamines Screen POSITIVE H, MDMA (Ecstasy) Screen NEGATIVE, U Benzodiazepines Scrn NEGATIVE, Urine Cocaine Screen NEGATIVE, U Cannabinoids Screen POSITIVE H, Ur Drug Screen Comment D/C Instructions Discharge Diet: No restrictions Meaningful Use Info Meaningful Use Diagnoses (Choose all that apply): None applicable Discharge Plan Admission Admit Date/Time: 12/30/21 15:50 Primary Reason for Your Visit: Acute opioid withdrawal Attending Provider: Mirlande Maria Primary Care Provider: Care Physician,Brittany Primary Consulting Providers: Rony Allison Instructions Additional Instructions / Restrictions: Follow-up with your outpatient drug rehab program as scheduled. Discharge Orders/Prescriptions Prescriptions: Continued melatonin 10 mg Tablet 30 mg PO DAILY trazodone 100 mg Tablet 100 mg PO QHS Referrals / Follow Up: Care Physician,No Primary [Primary Care Provider] - Disposition Disposition (needs filled in before D/C Order can be placed): Home, Self Care
--- NOTE | 2021-12-31 12:28 | PHA.DC.MR ---
Pharmacy Service has performed discharge medication reconciliation for this patient. The patient's discharge medication list was reviewed for discrepancies and discrepancies were resolved. Home Medications melatonin 10 mg tablet 30 mg PO DAILY sleep 12/30/21 trazodone 100 mg tablet 100 mg PO QHS insomnia 12/30/21
== END 2021-12-31 12:00 | disposition other institution (70) | DRG 772 ==
LOC: ED 15:39 → MS3 16:16
PROVIDERS: Admitting Provider Internal Medicine; Emergency Provider Emergency Medicine; Visit Provider Internal Medicine
DX: F11.23 Opioid dependence with withdrawal (principal); F17.210 Nicotine dependence, cigarettes, uncomplicated; L02.414 Cutaneous abscess of left upper limb; L02.413 Cutaneous abscess of right upper limb; Z86.19 Personal history of other infectious and parasitic diseases
CPT/HCPCS: 36415; 80048; 80053; 80307; 82077; 83540; 83550; 85025; 99283